=== PATIENT | male | born 1955 | race Caucasian/White ===

== ENCOUNTER → 2016-07-12 | Outpatient (CLI) | payer MEDICARE, MEDICAID ==
[~2016-07-12] MED LIST: ALBU17IN INH; CLIN1CAP5 PO; CLON0.2T PO; FLUTISP; FOLI1TAB2 PO; OCEA0.654; PRED10TA PO; PRED20TA PO; Thiamine Hcl PO; VITMTA PO
[2016-07-12 11:16] LABS: MEAN CORPUSCULAR HEMOGLOBIN 33.6 pg (27.0-33.0); MEAN CORPUSCULAR HGB CONC 33.2 g/dl (32.0-36.5); MEAN CORPUSCULAR VOLUME 101.4 fl (80.0-96.0); RED CELL DISTRIBUTION WIDTH 12.1 % (11.5-14.5)
[2016-07-12 11:59] LABS: ALBUMIN 3.8 GM/DL (3.2-5.2); ALBUMIN/GLOBULIN RATIO 1.27 (1.00-1.93); ALKALINE PHOSPHATASE 77 U/L (45-117); ALT/SGPT 34 U/L (12-78); ANION GAP 7 MEQ/L (8-16); AST/SGOT 25 U/L (15-37); BILIRUBIN,TOTAL 0.4 MG/DL (0.2-1.0); BLOOD UREA NITROGEN 7 MG/DL (7-18); CALCIUM LEVEL 9.3 MG/DL (8.5-10.1); CARBON DIOXIDE LEVEL 28 MEQ/L (21-32); CHLORIDE LEVEL 104 MEQ/L (98-107); CHOLESTEROL LEVEL 152 MG/DL (<200); CREATININE FOR GFR 0.73 MG/DL (0.70-1.30); GLOMERULAR FILTRATION RATE > 60.0 (>56); GLUCOSE, FASTING 84 MG/DL (70-105); POTASSIUM SERUM 4.3 MEQ/L (3.5-5.1); SODIUM LEVEL 139 MEQ/L (136-145); TOTAL PROTEIN 6.8 GM/DL (6.4-8.2); TRIGLYCERIDES LEVEL 95 MG/DL (<150)
--- NOTE | 2016-07-13 03:20 | REP ---
Clinical: Scoliosis. Pain. Technique: AP, lateral, swimmers views of the thoracic spine. Findings: Advanced, stable S-shaped scoliosis through the thoracolumbar spine is again identified and unchanged when compared to prior chest x-rays. Vertebral bodies appear relatively normal and without obvious acute fracture / compression injury. Impression: Advanced scoliosis. No obvious acute thoracic vertebral body findings. Signed by Amor Palumbo MD 07/13/2016 03:12 A
== END ==
LOC: M LAB 10:48
PROVIDERS: ATTEND Nurse Practitioner Family
DX: M41.9 Scoliosis, unspecified (principal); J44.9 Chronic obstructive pulmonary disease, unspecified; F10.21 Alcohol dependence, in remission; F13.220 Sedative, hypnotic or anxiolytic dependence with intoxication, uncomplicated

== ENCOUNTER 2016-12-08 09:46 | Emergency (ER) | payer MEDICARE, MEDICAID ==
[~2016-12-08] VITALS: Ht 170.2 cm; Wt 81.5 kg
[~2016-12-08 09:46] MED LIST changes: +CLIN150C14 PO; -CLIN1CAP5 PO; -FOLI1TAB2 PO; +FOLI1TAB4 PO
[2016-12-08 09:47] VITALS: BP 185/88
[2016-12-08] MEDS ORDERED: DOXY100C37 PO (10:49)
== END 2016-12-08 11:02 | disposition home or self-care (01) ==
LOC: M ED 09:46
DX: S20.362A Insect bite (nonvenomous) of left front wall of thorax, initial encounter (principal); W57.XXXA Bitten or stung by nonvenomous insect and other nonvenomous arthropods, initial encounter; Y92.9 Unspecified place or not applicable; Y93.9 Activity, unspecified; Y99.8 Other external cause status; I10 Essential (primary) hypertension; Z79.899 Other long term (current) drug therapy

== ENCOUNTER → 2017-01-01 | Outpatient (REF) | payer MEDICARE, MEDICAID ==
[~2017-01-01] MED LIST changes: +ARNU1INH; +DOXY100C37 PO; +LISI-538; +TIOT18INH INH
== END ==
LOC: M LAB REF 11:37
PROVIDERS: ATTEND Otolaryngology
DX: L03.211 Cellulitis of face (principal); R22.9 Localized swelling, mass and lump, unspecified

== ENCOUNTER → 2017-03-26 | Outpatient (REF) | payer MEDICARE, MEDICAID | LOC: M LAB REF 17:21 | PROVIDERS: ATTEND Otolaryngology | DX: L72.3 Sebaceous cyst (principal) ==

== ENCOUNTER 2017-04-01 10:40 | Emergency (ER) | payer MEDICARE, MEDICAID ==
[~2017-04-01] VITALS: Ht 170.2 cm; Wt 85.0 kg
[~2017-04-01 10:40] MED LIST changes: -ARNU1INH; -LISI-538; -TIOT18INH INH
[2017-04-01] MEDS ORDERED: LISI-538 (10:48)
[2017-04-01] MEDS ORDERED: TIOT18INH INH (10:48)
[2017-04-01] MEDS ORDERED: ARNU1INH (10:48)
[2017-04-01 12:30] VITALS: BP 178/94
[2017-04-01] MEDS ORDERED: DOXYCYCLINE HYCLATE 100 MG TAB PO ONE (12:30)
== END 2017-04-01 12:30 | disposition home or self-care (01) ==
LOC: M ED 10:40
DX: S20.96XA Insect bite (nonvenomous) of unspecified parts of thorax, initial encounter (principal); W57.XXXA Bitten or stung by nonvenomous insect and other nonvenomous arthropods, initial encounter; Y92.9 Unspecified place or not applicable; Y93.9 Activity, unspecified; Y99.9 Unspecified external cause status; I10 Essential (primary) hypertension; M41.9 Scoliosis, unspecified; J45.909 Unspecified asthma, uncomplicated; F17.200 Nicotine dependence, unspecified, uncomplicated; Z79.899 Other long term (current) drug therapy

== ENCOUNTER → 2017-04-04 | Outpatient (REF) | payer MEDICARE, MEDICAID ==
[~2017-04-04] MED LIST changes: +ARNU1INH; +LISI-538; +TIOT18INH INH
[2017-04-07 00:12] LABS: Lyme Disease IgG/IgM Antibodie <0.91 ISR (0.00-0.90); Lyme Disease IgM Ab Quantitati <0.80 index (0.00-0.79)
== END ==
LOC: M LAB REF 16:30
PROVIDERS: ATTEND Nurse Practitioner Adult Health
DX: A69.20 Lyme disease, unspecified (principal)

== ENCOUNTER → 2017-11-02 | Outpatient (CLI) | payer MEDICARE, MEDICAID | LOC: M RAD 11:13 | DX: M25.511 Pain in right shoulder (principal) | CPT/HCPCS: 73030 ==

== ENCOUNTER 2017-12-19 10:00 | Outpatient (RCR) | payer MEDICARE, MEDICAID | END 2018-01-08 | LOC: M PT 10:00 | DX: Z47.89 Encounter for other orthopedic aftercare (principal); M75.41 Impingement syndrome of right shoulder; M19.011 Primary osteoarthritis, right shoulder; M75.31 Calcific tendinitis of right shoulder | CPT/HCPCS: 97110 ==

== ENCOUNTER → 2018-08-12 | Outpatient (REF) | payer MEDICARE, MEDICAID ==
[~2018-08-12] MED LIST changes: +AMLO10TA5 PO; +FOLI1TAB11 PO; -FOLI1TAB4 PO; +LISI40TA PO; +PROAAER10 INH
== END ==
LOC: M SFHCPLAZ 19:04
PROVIDERS: ATTEND Dermatology
DX: D23.39 Other benign neoplasm of skin of other parts of face (principal); L57.0 Actinic keratosis; L57.8 Other skin changes due to chronic exposure to nonionizing radiation; L66.3 Perifolliculitis capitis abscedens
CPT/HCPCS: 11102; 11103; 88305; G0463

== ENCOUNTER → 2018-09-12 | Outpatient (REF) | payer MEDICARE, MEDICAID ==
[~2018-09-12] MED LIST changes: +FLUT50SP12; -FLUTISP; +PRED-351 PO; -PRED10TA PO
[2018-09-12 12:57] LABS: BLOOD UREA NITROGEN 7 MG/DL (7-18); CREATININE FOR GFR 0.71 MG/DL (0.70-1.30); GLOMERULAR FILTRATION RATE > 60.0 (>49)
== END ==
LOC: M LABDRAW1 12:16
PROVIDERS: ATTEND Physician Assistant Surgical
DX: Z01.812 Encounter for preprocedural laboratory examination (principal)

== ENCOUNTER → 2018-09-17 | Outpatient (REF) | payer MEDICARE | LOC: M SFHCPLAZ 18:01 | PROVIDERS: ATTEND Dermatology | DX: L72.0 Epidermal cyst (principal) ==

== ENCOUNTER → 2018-10-01 | Outpatient (REF) | payer MEDICARE, MEDICAID | LOC: M SFHCPLAZ 09:45 | PROVIDERS: ATTEND Dermatology | DX: L72.0 Epidermal cyst (principal) ==

== ENCOUNTER 2018-11-29 12:14 | Outpatient (RCR) | payer MEDICARE, MEDICAID | END 2018-12-08 | LOC: M PT 12:14 | PROVIDERS: ATTEND Nurse Practitioner Adult Health | DX: G57.12 Meralgia paresthetica, left lower limb (principal) ==

== ENCOUNTER → 2019-01-23 | Outpatient (CLI) | payer MEDICARE, MEDICAID ==
--- NOTE | 2019-01-23 11:56 | REP ---
LUMBAR SPINE SERIES: Five views. HISTORY: Low back pain. FINDINGS: Five views of the lumbar spine show a moderate levoconvex rotoscoliotic curve in the lumbar spine. Lumbar vertebral body heights are preserved alignment is otherwise normal. There is no evidence of spondylolysis or spondylolisthesis. No bony destructive lesion is seen. There is degenerative disc disease diffusely in the lumbar spine segments. Sacrum and SI joints are intact. Vascular calcification is noted. There are inguinal herniorrhaphy coils visible bilaterally. Granulomatous calcifications are seen in the lung bases. IMPRESSION: Moderate lumbar scoliosis. Degenerative disc disease diffusely. No bony destructive lesion or other acute abnormality. Electronically Signed by Odilon Ferrell MD 01/23/2019 05:30 P
== END ==
LOC: M RAD 09:07
PROVIDERS: ATTEND Nurse Practitioner Adult Health
DX: M54.5 Low back pain (principal)

== ENCOUNTER → 2019-02-24 | Outpatient (CLI) | payer MEDICARE, MEDICAID ==
--- NOTE | 2019-02-25 07:44 | REP ---
Clinical: History of varicose veins. Technique: Real time santos scale and color Doppler evaluation of the bilateral lower extremities using linear high frequency transducer with reflux evaluation. Findings: Bilateral deep venous structures from the common femoral vein to the popliteal vein demonstrates normal compressibility, flow, and wave patterns and response respiration and augmentation without evidence for deep venous thrombosis. Right lower extremity demonstrates reflux through the deep venous system including common femoral vein, superficial femoral vein, and popliteal vein. Reflux through the superficial venous system is also appreciated. Specifically, proximal greater saphenous vein measures 6.2 mm diameter with reflux duration 3.9 seconds, and the mid greater saphenous vein measures 4.3 mm diameter with reflux duration 4.1 seconds as well as reflux through the lesser saphenous vein measuring 4.5 mm diameter with reflux duration 2.8 seconds. Incidental collateral veins identified extending from the mid to distal greater saphenous vein. Left lower extremity demonstrates reflux through the deep venous system including common femoral vein, superficial femoral vein, and popliteal vein. Reflux through the proximal greater saphenous vein measuring 12.4 mm diameter with reflux duration 4.3 seconds, and of the lesser saphenous vein measuring 4.4 mm diameter with reflux duration 2.9 seconds. Note is made of a collateral vessel from the proximal greater saphenous vein to the mid calf where multiple varicosities with reflux are noted. Impression: 1. No evidence for deep venous thrombosis. 2. Moderate bilateral reflux as noted above. Electronically Signed by Amor Palumbo MD 02/25/2019 07:35 A
== END ==
LOC: M RAD 11:06
PROVIDERS: ATTEND Surgery Vascular Surgery
DX: I83.893 Varicose veins of bilateral lower extremities with other complications (principal)

== ENCOUNTER → 2019-04-29 | Outpatient (REF) | payer MEDICARE, MEDICAID | LOC: M SFHCPLAZ 18:29 | PROVIDERS: ATTEND Dermatology | DX: L72.0 Epidermal cyst (principal) ==

== ENCOUNTER → 2019-07-08 | Outpatient (REF) | payer MEDICARE, MEDICAID | LOC: M LAB REF 10:27 | PROVIDERS: ATTEND Dermatology | DX: L72.0 Epidermal cyst (principal) ==

== ENCOUNTER → 2019-12-10 | Outpatient (REF) | payer MEDICARE, MEDICAID ==
[2019-12-10 14:13] LABS: BASO # 0.1 10^3/uL (0.0-0.2); EOS # 0.2 10^3/uL (0.0-0.5); EOS % 1.8 % (0.0-3.0); HEMATOCRIT 49.5 % (42.0-52.0); HEMOGLOBIN 16.3 g/dl (13.5-17.5); LYMPH # 2.2 10^3/uL (1.5-5.0); LYMPH % 24.1 % (24.0-44.0); MEAN CORPUSCULAR HEMOGLOBIN 33.3 pg (27.0-33.0); MEAN CORPUSCULAR HGB CONC 32.9 g/dl (32.0-36.5); MEAN CORPUSCULAR VOLUME 101.2 fl (80.0-96.0); MONO % 10.6 % (0.0-5.0); NEUTROPHILS # 5.7 10^3/uL (1.5-8.5); NEUTROPHILS % 61.7 % (36.0-66.0); PLATELET COUNT, AUTOMATED 288 10^3/uL (150-450); RED BLOOD COUNT 4.89 10^6/uL (4.30-6.10); WHITE BLOOD COUNT 9.1 10^3/uL (4.0-10.0)
[2019-12-10 14:33] LABS: ALBUMIN 3.8 GM/DL (3.2-5.2); ALT/SGPT 47 U/L (12-78); BILIRUBIN,TOTAL 0.3 MG/DL (0.2-1.0); BLOOD UREA NITROGEN 7 MG/DL (7-18); CALCIUM LEVEL 9.3 MG/DL (8.8-10.2); CARBON DIOXIDE LEVEL 26 MEQ/L (21-32); CHLORIDE LEVEL 99 MEQ/L (98-107); CHOLESTEROL LEVEL 188 MG/DL (<200); CHOLESTEROL RISK RATIO 3.916 (<5); CREATININE FOR GFR 0.79 MG/DL (0.70-1.30); FREE T4 1.14 NG/DL (0.76-1.46); GLOMERULAR FILTRATION RATE > 60.0 (>49); GLUCOSE, FASTING 100 MG/DL (70-100); HDL CHOLESTEROL 48 MG/DL (>40); LDL CHOLESTEROL 113 MG/DL (<100); NON-HDL-C 140 MG/DL; POTASSIUM SERUM 4.4 MEQ/L (3.5-5.1); SODIUM LEVEL 132 MEQ/L (136-145); THYROID STIMULATING HORMONE 0.817 uIU/ML (0.358-3.740); TOTAL 25(OH) VITAMIN D 18.3 NG/ML (30.0-100.0); TOTAL PROTEIN 7.7 GM/DL (6.4-8.2); TRIGLYCERIDES LEVEL 137 MG/DL (<150)
[2019-12-10 14:49] LABS: HEMOGLOBIN A1c 5.6 %
== END ==
LOC: M LAB REF 12:20
PROVIDERS: ATTEND Nurse Practitioner Family
DX: F10.20 Alcohol dependence, uncomplicated (principal); J44.9 Chronic obstructive pulmonary disease, unspecified; Z72.0 Tobacco use; I10 Essential (primary) hypertension

== ENCOUNTER → 2019-12-25 | Outpatient (REF) | payer MEDICARE, MEDICAID ==
[~2019-12-25] MED LIST changes: -AMLO10TA5 PO; +AMLO1TAB25 PO
[2019-12-27 23:10] LABS: TESTOSTERONE FREE (DIRECT) 14.8 pg/mL (6.6-18.1)
== END ==
LOC: M LAB REF 17:01
PROVIDERS: ATTEND Nurse Practitioner Family
DX: Z13.9 Encounter for screening, unspecified (principal); N52.9 Male erectile dysfunction, unspecified
CPT/HCPCS: 84402; 84403; G0103

== ENCOUNTER → 2020-01-08 | Outpatient (REF) | payer MEDICARE, MEDICAID ==
[2020-02-27 06:52] LABS: TESTOSTERONE FREE (DIRECT) See Separate Report PG/ML; TESTOSTERONE TOTAL FOR T&D See Separate Report NG/DL
== END ==
LOC: M LAB REF 19:05
PROVIDERS: ATTEND Nurse Practitioner Family
DX: N52.9 Male erectile dysfunction, unspecified (principal)

== ENCOUNTER → 2020-02-19 | Outpatient (REF) | payer MEDICARE, MEDICAID ==
[2020-02-21 16:07] LABS: TESTOSTERONE FREE (DIRECT) 8.8 pg/mL (6.6-18.1)
== END ==
LOC: M LAB REF 17:31
PROVIDERS: ATTEND Nurse Practitioner Family
DX: N52.9 Male erectile dysfunction, unspecified (principal)

== ENCOUNTER → 2020-03-05 | Outpatient (REF) | payer MEDICARE, MEDICAID ==
[2020-03-08 23:14] LABS: TESTOSTERONE FREE (DIRECT) 7.2 pg/mL (6.6-18.1)
== END ==
LOC: M LAB REF 11:48
PROVIDERS: ATTEND Nurse Practitioner Family
DX: N52.9 Male erectile dysfunction, unspecified (principal)

== ENCOUNTER → 2020-04-07 | Outpatient (REF) | payer MEDICARE, MEDICAID ==
[2020-04-07 17:58] LABS: BACTERIA, URINE AUTO NEGATIVE (NEGATIVE); RBC, URINE AUTO 0 /HPF (0-3); SQUAMOUS EPITHELIAL CELL UR AU 0 /HPF (0-6); WBC, URINE AUTO 0 /HPF (0-3)
== END ==
LOC: M SMT 17:23
PROVIDERS: ATTEND Specialist
DX: N40.2 Nodular prostate without lower urinary tract symptoms (principal)
CPT/HCPCS: 51798; 81015; 87086; G0463

== ENCOUNTER → 2020-07-27 | Outpatient (CLI) | payer MEDICARE ==
[~2020-07-27] MED LIST changes: -CLIN150C14 PO; +CLIN150C15 PO; +FLEEENE12 PR; -LISI-538; +LISI20TA33; -LISI40TA PO; +LISI40TA4 PO; +MELO15TA28; +META0.52 PO; +MIRA3350 PO; +PEG31POW PO; +SENN-80 PO; +SENN-83 PO; +SILD50TA2 PO; +VITA50005 PO
--- NOTE | 2020-07-27 13:28 | REPPI ---
INDICATION: ELEVATED PSA. COMPARISON: None. TECHNIQUE: Transrectal prostate sonography. FINDINGS: Trans rectal prostate sonography demonstrates unremarkable seminal vesicles. Prostate gland is heterogeneous, with calcifications and cystic changes noted. Glandular dimensions are measured at 5.1 x 3.8 x 5.7 cm with a calculated glandular volume of 57.6 ml. There is a 0.9 cm hypoechoic nodule in the right posterior gland. Transrectal sonographic guidance is provided to Dr. Cornejo who performed trans rectal ultrasound guided needle biopsy procedure. IMPRESSION: Transrectal prostate sonographic findings as above. <Electronically signed by Yared Ferrell > 07/27/20 [id number]
== END ==
LOC: M SMT PRO 09:02
PROVIDERS: ATTEND Urology
DX: C61 Malignant neoplasm of prostate (principal)
CPT/HCPCS: 76872; 76942; G0416

== ENCOUNTER → 2020-08-03 | Outpatient (REF) | payer MEDICARE, OTHER, MEDICAID ==
[~2020-08-03] MED LIST changes: -FLEEENE12 PR; -MELO15TA28; -META0.52 PO; -MIRA3350 PO; -PEG31POW PO; -SENN-80 PO; -SENN-83 PO; -SILD50TA2 PO; -VITA50005 PO
== END ==
LOC: M LAB REF 18:49
PROVIDERS: ATTEND Dermatology
DX: L72.0 Epidermal cyst (principal)

== ENCOUNTER → 2020-08-27 | Outpatient (CLI) | payer MEDICARE, MEDICAID | LOC: M LAB 13:18 | PROVIDERS: ATTEND Urology | DX: C61 Malignant neoplasm of prostate (principal) ==

== ENCOUNTER → 2020-09-03 | Outpatient (REF) | payer MEDICARE, MEDICAID ==
[2020-09-03 19:34] LABS: BASO # 0.1 10^3/uL (0.0-0.2); BASO % 0.6 % (0.0-1.0); EOS % 0.1 % (0.0-3.0); HEMATOCRIT 50.4 % (42.0-52.0); HEMOGLOBIN 17.8 g/dl (13.5-17.5); LYMPH # 1.6 10^3/uL (1.5-5.0); MEAN CORPUSCULAR HEMOGLOBIN 33.6 pg (27.0-33.0); MEAN CORPUSCULAR HGB CONC 35.3 g/dl (32.0-36.5); MEAN CORPUSCULAR VOLUME 95.3 fl (80.0-96.0); MONO # 1.5 10^3/uL (0.0-0.8); MONO % 8.5 % (2.0-8.0); NEUTROPHILS # 14.4 10^3/uL (1.5-8.5); PLATELET COUNT, AUTOMATED 287 10^3/uL (150-450); RED BLOOD COUNT 5.29 10^6/uL (4.30-6.10)
[2020-09-03 19:51] LABS: ALBUMIN 3.7 GM/DL (3.2-5.2); ALT/SGPT 45 U/L (12-78); BILIRUBIN,TOTAL 0.8 MG/DL (0.2-1.0); BLOOD UREA NITROGEN 6 MG/DL (7-18); CALCIUM LEVEL 9.6 MG/DL (8.8-10.2); CARBON DIOXIDE LEVEL 28 MEQ/L (21-32); CHLORIDE LEVEL 90 MEQ/L (98-107); CHOLESTEROL LEVEL 150 MG/DL (<200); CHOLESTEROL RISK RATIO 2.777 (<5); CREATININE FOR GFR 0.83 MG/DL (0.70-1.30); GLOMERULAR FILTRATION RATE > 60.0 (>49); GLUCOSE, FASTING 109 MG/DL (70-100); HDL CHOLESTEROL 54 MG/DL (>40); LDL CHOLESTEROL 77 MG/DL (<100); NON-HDL-C 96 MG/DL; POTASSIUM SERUM 4.4 MEQ/L (3.5-5.1); SODIUM LEVEL 127 MEQ/L (136-145); TOTAL PROTEIN 7.5 GM/DL (6.4-8.2); TRIGLYCERIDES LEVEL 94 MG/DL (<150)
[2020-09-03 19:57] LABS: WHITE BLOOD COUNT 17.8 10^3/uL (4.0-10.0)
[2020-09-03 19:58] LABS: TOTAL 25(OH) VITAMIN D 10.5 NG/ML (30.0-100.0)
[2020-09-06 23:09] LABS: PSA TOTAL 3.7 ng/mL (0.0-4.0)
== END ==
LOC: M LAB REF 18:54
PROVIDERS: ATTEND Nurse Practitioner Family
DX: I10 Essential (primary) hypertension (principal); F17.200 Nicotine dependence, unspecified, uncomplicated; E55.9 Vitamin D deficiency, unspecified; R97.20 Elevated prostate specific antigen [PSA]

== ENCOUNTER → 2020-09-06 | Outpatient (REF) | payer MEDICARE, MEDICAID ==
[2020-09-06 18:51] LABS: BASO # 0.2 10^3/uL (0.0-0.2); BASO % 1.1 % (0.0-1.0); EOS # 0.2 10^3/uL (0.0-0.5); EOS % 1.1 % (0.0-3.0); HEMATOCRIT 48.6 % (42.0-52.0); HEMOGLOBIN 16.4 g/dl (13.5-17.5); LYMPH # 1.8 10^3/uL (1.5-5.0); LYMPH % 12.8 % (24.0-44.0); MEAN CORPUSCULAR HEMOGLOBIN 33.5 pg (27.0-33.0); MEAN CORPUSCULAR HGB CONC 33.7 g/dl (32.0-36.5); MEAN CORPUSCULAR VOLUME 99.2 fl (80.0-96.0); MONO # 1.5 10^3/uL (0.0-0.8); NEUTROPHILS % 72.5 % (36.0-66.0); PLATELET COUNT, AUTOMATED 274 10^3/uL (150-450)
[2020-09-06 19:16] LABS: ALBUMIN 3.5 GM/DL (3.2-5.2); ALT/SGPT 49 U/L (12-78); BILIRUBIN,TOTAL 0.5 MG/DL (0.2-1.0); BLOOD UREA NITROGEN 10 MG/DL (7-18); CALCIUM LEVEL 9.4 MG/DL (8.8-10.2); CARBON DIOXIDE LEVEL 28 MEQ/L (21-32); CHLORIDE LEVEL 94 MEQ/L (98-107); CREATININE FOR GFR 0.87 MG/DL (0.70-1.30); FERRITIN 470 NG/ML (26-388); GLOMERULAR FILTRATION RATE > 60.0 (>49); GLUCOSE, FASTING 86 MG/DL (70-100); IRON (FE) 81 UG/DL (65-175); MAGNESIUM LEVEL 2.3 MG/DL (1.8-2.4); PERCENT SATURATION 29.9 % (19.7-50.0); POTASSIUM SERUM 4.5 MEQ/L (3.5-5.1); SODIUM LEVEL 130 MEQ/L (136-145); TOTAL IRON BINDING CAPACITY 271 UG/DL (250-450); TOTAL PROTEIN 7.1 GM/DL (6.4-8.2)
[2020-09-06 19:24] LABS: FOLATE 15.2 NG/ML; VITAMIN B12 LEVEL 317 PG/ML
[2020-09-06 19:38] LABS: MONO % 11.1 % (2.0-8.0); WHITE BLOOD COUNT 13.7 10^3/uL (4.0-10.0)
== END ==
LOC: M LAB REF 16:36
PROVIDERS: ATTEND Nurse Practitioner Family
DX: E87.1 Hypo-osmolality and hyponatremia (principal); D72.829 Elevated white blood cell count, unspecified; D50.9 Iron deficiency anemia, unspecified

== ENCOUNTER → 2020-09-08 | Outpatient (REF) | payer MEDICARE, MEDICAID ==
[2020-09-08 13:21] LABS: APPEARANCE, URINE CLEAR (CLEAR); BACTERIA, URINE AUTO NEGATIVE (NEGATIVE); BILIRUBIN, URINE AUTO NEGATIVE (NEGATIVE); BLOOD, URINE BLOOD NEGATIVE (NEGATIVE); COLOR, URINE AMBER (YELLOW); GLUCOSE, URINE (UA) AUTO NEGATIVE (NEGATIVE); KETONE, URINE AUTO TRACE mg/dL (NEGATIVE); LEUKOCYTE ESTERASE, URINE AUTO NEGATIVE (NEGATIVE); NITRITE, URINE AUTO NEGATIVE (NEGATIVE); PROTEIN, URINE AUTO 1+ mg/dL (NEGATIVE); RBC, URINE AUTO 0 /HPF (0-3); SPECIFIC GRAVITY URINE AUTO 1.017 (1.002-1.035); SQUAMOUS EPITHELIAL CELL UR AU 0 /HPF (0-6); WBC, URINE AUTO 1 /HPF (0-3)
[2020-09-08 14:05] LABS: SODIUM,RANDOM URINE 28 MEQ/L
[2020-09-08 15:02] LABS: OSMOLALITY URINE 452 MOSM/KG (50-1400)
== END ==
LOC: M LAB REF 12:10
PROVIDERS: ATTEND Nurse Practitioner Family
DX: E87.1 Hypo-osmolality and hyponatremia (principal); D72.829 Elevated white blood cell count, unspecified

== ENCOUNTER 2020-09-12 00:11 | Emergency (ER) | payer MEDICARE, MEDICAID ==
[~2020-09-12] VITALS: Ht 170.2 cm; Wt 92.7 kg
[2020-09-12] MEDS ORDERED: MELO15TA28 (00:26)
[2020-09-12] MEDS ORDERED: SILD50TA2 (00:26)
[2020-09-12 01:09] LABS: BASO # 0.1 10^3/uL (0.0-0.2); BASO % 0.8 % (0.0-1.0); EOS # 0.2 10^3/uL (0.0-0.5); EOS % 1.1 % (0.0-3.0); HEMATOCRIT 48.5 % (42.0-52.0); HEMOGLOBIN 16.6 g/dl (13.5-17.5); LYMPH # 1.9 10^3/uL (1.5-5.0); LYMPH % 13.2 % (24.0-44.0); MEAN CORPUSCULAR HEMOGLOBIN 33.7 pg (27.0-33.0); MEAN CORPUSCULAR HGB CONC 34.2 g/dl (32.0-36.5); MEAN CORPUSCULAR VOLUME 98.4 fl (80.0-96.0); MONO # 1.1 10^3/uL (0.0-0.8); MONO % 7.9 % (2.0-8.0); NEUTROPHILS # 10.8 10^3/uL (1.5-8.5); NEUTROPHILS % 76.2 % (36.0-66.0); PLATELET COUNT, AUTOMATED 352 10^3/uL (150-450); RED BLOOD COUNT 4.93 10^6/uL (4.30-6.10); WHITE BLOOD COUNT 14.2 10^3/uL (4.0-10.0)
[2020-09-12 01:20] LABS: ALBUMIN 3.4 GM/DL (3.2-5.2); ALT/SGPT 44 U/L (12-78); BILIRUBIN,DIRECT 0.3 MG/DL (0.0-0.2); BILIRUBIN,TOTAL 0.5 MG/DL (0.2-1.0); BLOOD UREA NITROGEN 8 MG/DL (7-18); CALCIUM LEVEL 9.1 MG/DL (8.8-10.2); CARBON DIOXIDE LEVEL 28 MEQ/L (21-32); CHLORIDE LEVEL 95 MEQ/L (98-107); CREATININE FOR GFR 0.83 MG/DL (0.70-1.30); GLOMERULAR FILTRATION RATE > 60.0 (>49); GLUCOSE, FASTING 146 MG/DL (70-100); LIPASE 241 U/L (73-393); POTASSIUM SERUM 3.9 MEQ/L (3.5-5.1); SODIUM LEVEL 130 MEQ/L (136-145); TOTAL PROTEIN 7.2 GM/DL (6.4-8.2)
--- NOTE | 2020-09-12 01:21 | REPVR ---
PROCEDURE INFORMATION: Exam: XR Abdomen Exam date and time: 09/12/2020 12:59 AM Age: 65 years old Clinical indication: Other: Flat and upright TECHNIQUE: Imaging protocol: XR of the abdomen. Views: 2 Views. Upright and supine views. COMPARISON: CT ABD/PEL W/IV CONTRAST ONLY 01/05/2020 10:30 AM FINDINGS: Gastrointestinal tract: Mild gas in the GI tract without abnormal dilatation. There are a few small bowel air-fluid levels suggested in nondilated small bowel. Intraperitoneal space: No free air. Bones/joints: Levorotoscoliosis of the thoracolumbar spine with degenerative disc changes. IMPRESSION: 1. Levorotoscoliosis of the thoracolumbar spine degenerative change. 2. There are some air-fluid levels in nondilated small bowel which is nonspecific and may reflect minimal ileus or possibly enteritis. 3. Otherwise negative abdomen with mild gas overall. Electronically signed by: Yoshi Thompson On 09/12/2020 01:21:37 AM
[2020-09-12] MEDS ORDERED: KETOROLAC 30 MG/ML 1ML VIAL IV ONE (01:35)
[2020-09-12] MEDS ORDERED: METOCLOPRAMIDE INJ 10MG/2ML VIAL (J2765 PER 1) IV ONE (01:40)
[2020-09-12] MEDS: GASTROGRAFIN SOLUTION 30ML PO SCH ×2 (02:34→02:48)
[2020-09-12] MEDS ORDERED: ISOVUE-370 76% 100ML VIAL As Ordered ONE (03:32)
--- NOTE | 2020-09-12 04:52 | REPVR ---
PROCEDURE INFORMATION: Exam: CT Abdomen And Pelvis With Contrast Exam date and time: 09/12/2020 4:18 AM Age: 65 years old Clinical indication: Condition or disease; Intestinal condition; Other: Ileus; Additional info: Ileus with distended hernia TECHNIQUE: Imaging protocol: Computed tomography of the abdomen and pelvis with contrast. Radiation optimization: All CT scans at this facility use at least one of these dose optimization techniques: automated exposure control; mA and/or kV adjustment per patient size (includes targeted exams where dose is matched to clinical indication); or iterative reconstruction. Contrast material: ISOVUE 370; Contrast volume: 100 ml; Contrast route: INTRAVENOUS (IV); Other contrast: Oral, gastrographin, 600ml; COMPARISON: CT ABD/PEL W/IV CONTRAST ONLY 01/05/2020 10:30 AM FINDINGS: Lungs: Slight bibasilar interstitial prominence and minimal fibro-atelectatic change in the right middle lobe and lingular tip. There are calcified granulomata in the lung bases. Liver: The liver attenuation is 42 Hounsfield units and the spleen is 114 Hounsfield units. Gallbladder and bile ducts: Normal. No calcified stones. No ductal dilation. Pancreas: Normal. No ductal dilation. Spleen: Normal. No splenomegaly. Adrenal glands: Right adrenal nodule measuring 3.1 x 2.6 x 3.8 cm which is redemonstrated since the prior study and demonstrates a Hounsfield measurement of 41. There is a smaller left adrenal nodule measuring 2.1 x 1.5 x 1.6 cm which is also unchanged. No follow-up is necessary. Kidneys and ureters: Moderate left renal atrophy which is increased since the prior study. There is prominent plaque in the proximal left renal artery and this atrophic change may be of renovascular origin. There is a right renal cyst measuring 13 mm which is redemonstrated and unchanged from the prior study. Stomach and bowel: No bowel distention. No abnormal air-fluid levels. Appendix: Surgical clips about the cecal tip suggesting prior appendectomy. The appendix is not seen. Intraperitoneal space: Unremarkable. No free air. No significant fluid collection. Vasculature: There is mild calcification of the abdominal aorta with extension into the iliac arteries. Lymph nodes: Unremarkable. No enlarged lymph nodes. Urinary bladder: Unremarkable as visualized. Reproductive: Unremarkable as visualized. Bones/joints: Levorotoscoliosis through the thoracolumbar spine. Soft tissues: Unremarkable. IMPRESSION: 1. Fatty infiltration of the liver. 2. Bilateral adrenal nodules which remain unchanged from the prior study. No follow-up is necessary. 3. Moderate left renal atrophy which is increased since the prior study. In view of prominent left renal artery atherosclerotic plaque, this is likely of renovascular origin. 4. Otherwise negative CT abdomen/pelvis. No small bowel distention or air-fluid levels. Electronically signed by: Yoshi Thompson On 09/12/2020 04:52:52 AM
[2020-09-12] MEDS ORDERED: MIRA3350 PO (05:10)
[2020-09-12] MEDS ORDERED: SENN-80 PO (05:10)
[2020-09-12] MEDS ORDERED: META0.52 PO (05:10)
[2020-09-12] MEDS ORDERED: FLEEENE12 PR (05:11)
[2020-09-12] MEDS ORDERED: METOCLOPRAMIDE 10 MG TAB PO ONE (05:40)
[2020-09-12] MEDS ORDERED: SENNA 8.6 MG TAB (SENOKOT) PO ONE ×2 (05:55→09:00)
[2020-09-12 06:32] VITALS: BP 131/68
== END 2020-09-12 07:01 | disposition home or self-care (01) ==
LOC: M ED 00:11
DX: K59.00 Constipation, unspecified (principal); K56.7 Ileus, unspecified; M51.34 Other intervertebral disc degeneration, thoracic region; K76.0 Fatty (change of) liver, not elsewhere classified; E27.9 Disorder of adrenal gland, unspecified; N26.1 Atrophy of kidney (terminal); I10 Essential (primary) hypertension; E78.5 Hyperlipidemia, unspecified; Z79.899 Other long term (current) drug therapy
CPT/HCPCS: 74019; 74177; 80048; 80076; 81001; 83605; 83690; 85025; 93041; 96374; 96375; 99285; J1885; J2765; Q9963; Q9967

== ENCOUNTER 2020-09-14 19:23 | Emergency (ER) | payer MEDICARE, MEDICAID ==
[~2020-09-14] VITALS: Ht 170.2 cm; Wt 92.3 kg
[~2020-09-14 19:23] MED LIST changes: +FLEEENE12 PR; +MELO15TA28; +META0.52 PO; +MIRA3350 PO; +SENN-80 PO; +SILD50TA2 PO
[2020-09-14] MEDS ORDERED: KETOROLAC 30 MG/ML 1ML VIAL IV ONE (20:00)
[2020-09-14] MEDS ORDERED: ISOVUE-370 76% 100ML VIAL As Ordered ONE (20:15)
[2020-09-14 20:23] LABS: BASO # 0.1 10^3/uL (0.0-0.2); BASO % 0.6 % (0.0-1.0); EOS # 0.1 10^3/uL (0.0-0.5); EOS % 0.7 % (0.0-3.0); HEMATOCRIT 43.9 % (42.0-52.0); HEMOGLOBIN 14.9 g/dl (13.5-17.5); LYMPH # 1.5 10^3/uL (1.5-5.0); LYMPH % 9.8 % (24.0-44.0); MEAN CORPUSCULAR HEMOGLOBIN 33.9 pg (27.0-33.0); MEAN CORPUSCULAR HGB CONC 33.9 g/dl (32.0-36.5); MONO # 1.1 10^3/uL (0.0-0.8); MONO % 7.5 % (2.0-8.0); NEUTROPHILS # 12.1 10^3/uL (1.5-8.5); NEUTROPHILS % 80.5 % (36.0-66.0); PLATELET COUNT, AUTOMATED 296 10^3/uL (150-450); RED BLOOD COUNT 4.39 10^6/uL (4.30-6.10)
[2020-09-14 20:30] LABS: ALBUMIN 3.3 GM/DL (3.2-5.2); ALT/SGPT 37 U/L (12-78); BILIRUBIN,DIRECT < 0.1 MG/DL (0.0-0.2); BILIRUBIN,TOTAL 0.3 MG/DL (0.2-1.0); CK-MB VALUE MASS 1.5 NG/ML (<3.6); CPK CREATINE PHOSPHOKINASE 97 U/L (39-308); ETHYL ALCOHOL (ETHANOL) < 0.003 % (0.000-0.010); LIPASE 272 U/L (73-393); MB/CK RELATIVE INDEX 1.55 (< OR =4); TOTAL PROTEIN 6.8 GM/DL (6.4-8.2); TROPONIN I < 0.02 NG/ML (< 0.10)
--- NOTE | 2020-09-14 21:59 | REPVR ---
PROCEDURE INFORMATION: Exam: CTA Abdomen and Pelvis With Contrast Exam date and time: 09/14/2020 9:06 PM Age: 65 years old Clinical indication: Abdominal pain; Epigastric; Additional info: Worsening epigastric pain, rad to back TECHNIQUE: Imaging protocol: Computed tomographic angiography of the abdomen and pelvis with contrast material. 3D rendering (Not supervised by radiologist): MIP and/or 3D reconstructed images were created by the technologist. Radiation optimization: All CT scans at this facility use at least one of these dose optimization techniques: automated exposure control; mA and/or kV adjustment per patient size (includes targeted exams where dose is matched to clinical indication); or iterative reconstruction. Contrast material: ISOVUE 370; Contrast volume: 100 ml; Contrast route: INTRAVENOUS (IV); COMPARISON: CT ABD/PEL W/IV ORAL CONTRAS 09/12/2020 3:38 AM FINDINGS: Aorta: No aortic aneurysm. No aortic dissection. Celiac trunk and mesenteric arteries: Mild stenosis of the celiac artery origin. Distal celiac artery and peripheral branches are patent. SMA and SAIRA are patent without stenosis. Renal arteries: Severe stenosis due to atherosclerotic disease in the distal left renal artery. Nonocclusive calcified plaque at the origin of the right renal artery. Right iliac arteries: Advanced nonocclusive atherosclerotic disease in the right common, internal, and external iliac arteries. Left iliac arteries: Advanced atherosclerotic disease in the left common, internal, and external iliac arteries. Liver: There is an ill-defined 1.7 cm area of enhancement in the right lobe of the liver, possibly hemangioma, which appears similar to the prior exam. There is hepatomegaly and hepatic steatosis. Gallbladder and bile ducts: Unremarkable. No calcified stones. No ductal dilation. Pancreas: There is mild soft tissue edema adjacent to the pancreatic head in the pancreaticoduodenal fissure. Remainder of the pancreas is unremarkable. No pancreatic mass or duct dilation. No peripancreatic fluid. Spleen: Unremarkable. No splenomegaly. Adrenal glands: 3.5 cm solid mass in the right adrenal gland is unchanged. 2.6 cm solid mass in the left adrenal gland is unchanged. Kidneys and ureters: The right kidney is atrophic with renal cortical thinning and decreased parenchymal enhancement. A 1.5 cm nodule with internal density of 70 Hounsfield units in the upper pole of the right kidney is unchanged. No hydronephrosis. No hydronephrosis. Stomach and bowel: No obstruction. No mucosal thickening. Incidental small duodenal diverticulum. Appendix: There has been prior appendectomy. Intraperitoneal space: Unremarkable. No free air. No significant fluid collection. Lymph nodes: Unremarkable. No enlarged lymph nodes. Urinary bladder: Mild urinary bladder wall thickening. No bladder calculi. Reproductive: Unremarkable as visualized. Bones/joints: There are advanced degenerative changes in the spine and pelvis. Prominent lumbar dextroscoliosis. Soft tissues: Unremarkable. IMPRESSION: 1. Possible mild pancreatitis with mild soft tissue edema adjacent to the pancreatic head. No pancreatic duct dilation, fluid collection, or mass. 2. Mild celiac artery origin stenosis, likely due to extrinsic compression by the diaphragm. No celiac or mesenteric artery occlusion or dissection. 3. Severe stenosis of the left renal artery with atrophy. 4. Nonocclusive aortoiliac atherosclerotic disease. No aneurysm or dissection. 5. Hepatic steatosis and hepatomegaly. 6. Stable appearance of bilateral adrenal masses. Stable small exophytic right renal mass. 7. Mild urinary bladder wall thickening may be due to decompression versus cystitis. Electronically signed by: Huey Troy On 09/14/2020 22:00:28 PM
[2020-09-14 22:29] VITALS: BP 184/92
[2020-09-14] MEDS ORDERED: VITA50005 PO (22:43)
--- NOTE | 2020-09-15 13:17 | ECGEPIP ---
[facility] - ED Test Date: 2020-09-14 Pat Name: CHARLOTTE LEMUS Department: Room: - Gender: Male Director Of Quality Improvement: TRINITY : 1955 Requested By: RAJWINDER Chris Order Number: [id number] Reading MD: Radha Linares Measurements Intervals [place] Rate: 84 P: MD: 150 QRS: -40 QRSD: 96 T: 25 QT: 370 QTc: 437 Interpretive Statements Normal sinus rhythm Left axis deviation delayed r progression increased rate 05/21/15 Electronically Signed on 09-15-2020 13:17:30 EDT by Radha Linares
--- NOTE | 2020-09-15 17:46 | ED PDOC ---
Post-Departure Follow-Up cta abd faxed to [facility] for follow up. Patrice Hager MD Sep 15, 2020 17:46
== END 2020-09-14 23:20 | disposition home or self-care (01) ==
LOC: M ED 19:23
DX: R10.9 Unspecified abdominal pain (principal); I77.4 Celiac artery compression syndrome; I70.1 Atherosclerosis of renal artery; E27.9 Disorder of adrenal gland, unspecified; I10 Essential (primary) hypertension; E78.5 Hyperlipidemia, unspecified; F10.10 Alcohol abuse, uncomplicated; F17.200 Nicotine dependence, unspecified, uncomplicated; Z79.899 Other long term (current) drug therapy
CPT/HCPCS: 74174; 80047; 80076; 82077; 82550; 82553; 83690; 84484; 85025; 93005; 93041; 96374; 99285; J1885; Q9967

== ENCOUNTER 2020-09-18 19:00 | Inpatient (IN) | payer MEDICARE, MEDICAID ==
[~2020-09-18] VITALS: Ht 170.2 cm; Wt 82.6 kg
[~2020-09-18 19:00] MED LIST changes: +VITA50005 PO
[2020-09-18] MEDS ORDERED: PANTOPRAZOLE 40MG VIAL (C9113 PER 1) IV ONE (19:25)
[2020-09-18] MEDS ORDERED: NS 1,000 ML IV ONE ×2 (19:25→19:45)
[2020-09-18 19:39] LABS: BASO # 0.2 10^3/uL (0.0-0.2); BASO % 1.1 % (0.0-1.0); EOS # 0.2 10^3/uL (0.0-0.5); EOS % 1.3 % (0.0-3.0); HEMATOCRIT 40.4 % (42.0-52.0); HEMOGLOBIN 13.2 g/dl (13.5-17.5); LYMPH # 4.3 10^3/uL (1.5-5.0); MEAN CORPUSCULAR HEMOGLOBIN 33.6 pg (27.0-33.0); MEAN CORPUSCULAR HGB CONC 32.7 g/dl (32.0-36.5); MEAN CORPUSCULAR VOLUME 102.8 fl (80.0-96.0); MONO # 1.3 10^3/uL (0.0-0.8); MONO % 7.9 % (2.0-8.0); NEUTROPHILS # 10.2 10^3/uL (1.5-8.5); NEUTROPHILS % 61.5 % (36.0-66.0); PLATELET COUNT, AUTOMATED 366 10^3/uL (150-450); RED BLOOD COUNT 3.93 10^6/uL (4.30-6.10); WHITE BLOOD COUNT 16.6 10^3/uL (4.0-10.0)
[2020-09-18] MEDS ORDERED: SENN-83 PO (19:41)
[2020-09-18] MEDS ORDERED: PEG31POW PO (19:42)
[2020-09-18] MEDS ORDERED: OCTREOTIDE ACETATE 100MCG/ML VIAL (J2354 PER 25MCG) IV ONE (19:45)
[2020-09-18 19:49] LABS: INR 1.06
[2020-09-18 19:50] LABS: PARTIAL THROMBOPLASTIN TIME 24.9 SECONDS (24.2-38.5)
[2020-09-18] MEDS ORDERED: ISOVUE-370 76% 100ML VIAL As Ordered ONE (19:56)
[2020-09-18 20:10] LABS: ALBUMIN 2.9 GM/DL (3.2-5.2); ALT/SGPT 39 U/L (12-78); BILIRUBIN,DIRECT 0.2 MG/DL (0.0-0.2); BILIRUBIN,TOTAL 0.4 MG/DL (0.2-1.0); BLOOD UREA NITROGEN 15 MG/DL (7-18); CALCIUM LEVEL 8.4 MG/DL (8.8-10.2); CARBON DIOXIDE LEVEL 22 MEQ/L (21-32); CHLORIDE LEVEL 99 MEQ/L (98-107); CK-MB VALUE MASS 1.3 NG/ML (<3.6); CPK CREATINE PHOSPHOKINASE 74 U/L (39-308); CREATININE FOR GFR 1.14 MG/DL (0.70-1.30); GLOMERULAR FILTRATION RATE > 60.0 (>49); GLUCOSE, FASTING 146 MG/DL (70-100); LIPASE 244 U/L (73-393); MB/CK RELATIVE INDEX 1.76 (< OR =4); SODIUM LEVEL 131 MEQ/L (136-145); TOTAL PROTEIN 6.2 GM/DL (6.4-8.2); TROPONIN I 0.02 NG/ML (< 0.10)
[2020-09-18 20:15] LABS: RSV AMPLIFICATION NEGATIVE (NEGATIVE)
--- NOTE | 2020-09-18 20:36 | REP ---
INDICATION: lightheadedness. COMPARISON: 11/20/2015. TECHNIQUE: SINGLE PORTABLE AP VIEW OF THE CHEST WAS PERFORMED. FINDINGS: There is no acute infiltrate or pulmonary edema. Scattered tiny calcified granulomas are again seen unchanged. Heart is normal in size. Mediastinal silhouette is unchanged. There are degenerative changes of the spine with curvature. IMPRESSION: NO ACUTE PULMONARY DISEASE. <Electronically signed by Diego Vigil > 09/18/202031
--- NOTE | 2020-09-18 21:00 | REPVR ---
PROCEDURE INFORMATION: Exam: CT Abdomen And Pelvis With Contrast Exam date and time: 09/18/2020 8:10 PM Age: 65 years old Clinical indication: Abdominal pain; Generalized; Additional info: Abd pain, hematemesis, rectal bleeding TECHNIQUE: Imaging protocol: Computed tomography of the abdomen and pelvis with contrast. Radiation optimization: All CT scans at this facility use at least one of these dose optimization techniques: automated exposure control; mA and/or kV adjustment per patient size (includes targeted exams where dose is matched to clinical indication); or iterative reconstruction. Contrast material: ISOVUE 370; Contrast volume: 100 ml; Contrast route: INTRAVENOUS (IV); COMPARISON: CT ABD/PEL W/IV ORAL CONTRAS 09/12/2020 3:38 AM FINDINGS: Lungs: Several calcified granulomas are present in the lower lungs. Mild dependent atelectasis. Liver: No mass. Gallbladder and bile ducts: No calcified stones. No ductal dilation. Pancreas: There is mild fat inflammation along the right border of the pancreas in the pancreaticoduodenal groove and mild inflammation of the descending duodenum. Spleen: No splenomegaly. Adrenal glands: Stable bilateral adrenal nodules. Kidneys and ureters: Stable indeterminate attenuating 1.5 cm exophytic superior pole right renal lesion. Atrophic left kidney. No hydronephrosis. Stomach and bowel: Hyperattenuating material is present within the stomach. No gastric pneumatosis or layering contrast to suggest extravasation. Fluid layers throughout the colon and rectum. No layering contrast to suggest active extravasation. Fatty infiltration throughout portions of the colonic [place] are likely secondary to old inflammation. No evidence of active colitis. Appendix: No evidence of appendicitis. Intraperitoneal space: No pneumoperitoneum or hemoperitoneum. Vasculature: Extensive atherosclerotic disease as detailed on CTA from 09/14/2020. Lymph nodes: No enlarged lymph nodes. Urinary bladder: Unremarkable as visualized. Reproductive: Mildly enlarged prostate. Bones/joints: No acute fracture. Levoscoliosis. Soft tissues: Herniorrhaphy clips along the anterior abdominal wall inferiorly. IMPRESSION: 1. Hyperattenuating material layering within the stomach, nonspecific and may represent ingested material or blood clot given the history of hematemesis. There is also nonspecific layering fluid throughout the colon. No layering contrast to suggest active extravasation, allowing for venous phase imaging. 2. Mild pancreatic inflammation extending into the pancreaticoduodenal groove again noted. 3. Numerous additional chronic and incidental findings are otherwise not significantly changed from the recent CTA abdomen from 09/14/2020. Electronically signed by: Matthew Gibson On 09/18/2020 21:01:10 PM
[2020-09-18] MEDS ORDERED: cefTRIAXone SOD 1 GM in D5W MINI-BAG PLUS 50 ML IV ONE (21:10)
[2020-09-18] MEDS ORDERED: OCTREOTIDE ACETATE 1,200 MCG in NS 238.8 ML IV SCH (21:10)
[2020-09-18] MEDS ORDERED: PANTOPRAZOLE SODIUM 40 MG in D5W 50 ML IV SCH (21:10)
[2020-09-18] MEDS ORDERED: LORazepam 2 MG TAB PO PRN (22:30)
[2020-09-18] MEDS ORDERED: IPRATROPIUM 0.5MG/ALBUTEROL 2.5MG INH SOL UD 3ML (DUONEB) NEB PRN (22:35)
[2020-09-18] MEDS ORDERED: IPRATROPIUM 0.5MG/ALBUTEROL 2.5MG INH SOL UD 3ML (DUONEB) NEB ONE (22:35)
--- NOTE | 2020-09-18 23:00 | REPVR ---
PROCEDURE INFORMATION: Exam: US Duplex Left Lower Extremity Veins, Limited Exam date and time: 09/18/2020 10:38 PM Age: 65 years old Clinical indication: Pain; Leg, lower; Left; Additional info: Left calf pain TECHNIQUE: Imaging protocol: Real-time Duplex ultrasound of the Left Lower Extremity with 2-D santos scale, color Doppler flow and spectral waveform analysis with image documentation. Limited exam focused on the left lower extremity veins. COMPARISON: US Duplex, Ext LOWER veins, bilat 02/24/2019 11:22 AM FINDINGS: Left deep veins: The common femoral, femoral, proximal profunda femoral and popliteal veins are patent without thrombus. Normal Doppler waveforms. Normal compressibility and/or augmentation response. Left superficial veins: Saphenofemoral junction is patent without thrombus. Soft tissues: Mild subcutaneous edema. IMPRESSION: No evidence of deep vein thrombosis. Electronically signed by: Matthew Gibson On 09/18/2020 23:00:41 PM
--- NOTE | 2020-09-18 23:09 | HPEPDOC ---
[facility] Medical History & Physical Date of Admission Sep 18, 2020 Date of Service: Sep 18, 2020 History and Physical CHIEF COMPLAINT: Vomiting blood HISTORY OF PRESENT ILLNESS: 65-year-old male history of alcohol abuse and hypertension presents to the hospital because of 1 day history of bleeding. Patient endorses initially noticed bright red blood in his stools which later in that they turn black he also then started vomiting there is blood in his vomit area the episode resolved by the time he came to the hospital. He's feeling better. He was initially hypotensive and diaphoretic responded well to fluid boluses. He is now hypertensive. CT showing blood in the stomach. GI was consulted and recommended Protonix and octreotide drip. Patient's hemoglobin has been stable. He denies any fevers or chills currently denies any abdominal pain denies chest pain or shortness of breath and states he feels well and is hungry. Denies any further episodes of bleeding. Tells me that daily alcohol drinker drinks about 4 beers daily his last drink was today he used to be a heavier drinker in the past. Patient will be admitted to medical service for evaluation by GI in the morning likely for scopes close monitoring of hemoglobin for signs of bleeding. PAST MEDICAL/SURGICAL HISTORY: Hypertension ?"One bad kidney" Umbilical hernia repair Bilateral inguinal hernia repair SOCIAL HISTORY: Endorses daily alcohol use about 4 beers daily last drink was today. Endorses smoking 1 pack of tobacco daily for about 30 years Denies illicit drug use except for cannabis use FAMILY HISTORY: Reviewed and none contributory to this admission ALLERGIES: Please see below. REVIEW OF SYSTEMS: 10 point review of systems complete all negative otherwise stated in HPI HOME MEDICATIONS: Please see below. PHYSICAL EXAMINATION: Constitutional: Awake and alert, in no apparent distress ENT: Sclera are clear. Respiratory: Lungs CTA bilaterally. No respiratory distress. Cardiovascular: RRR S1 and S2 are normal Gastrointestinal: Abdomen is soft, mildly distended, non tender to light and deep patient, BS present and are hyperactive. Musculoskeletal: No lower extremity edema. Left calf tender Neurologic: No focal neurological deficit. Mental Status: A&O x3, normal affect Skin: Warm, dry LABORATORY DATA: See below. IMAGING: See chart MICROBIOLOGY: Please see below. ASSESSMENT/PLAN 65M presents with hematemesis, melena suspected to be secondary to alcohol abuse. Admitted to medical service for management of upper GI bleed and evaluation by GI in the morning. # Hematemesis: bleeding has now stopped. Likely 2/2 ETOH abuse, gastritis/ Marylu valerie tear. Admit to PCU for close monitoring, trend HH. pRBC PRN hgb<8. Discussed with GI Dr Santamaria, will place patient on protonix and octreotide drips. NPO for scopes tomorrow. # Lactic acidosis: 6.3 on admit improved to 1.4 with IVFs. I suspect this is from dehydration and GI bleed. I don't suspect infection at this time. Fu procal . IV rocephin for now. # ?history of liver cirrhosis: no cirrhosis seen on CT. Ceftriaxone prophylaxis for now. Follow up liver US. Trend lactate. # Macrocytic anemia: Fu folate/B12. related to ETOH abuse # ETOH abuse: CIWA protocol. MVN/folate/thiamine after procedure. Ativan PRN. Last drink within past day. No history of ETOH withdrawals. # Hypertension: Continue home meds. Monitor and titrate # DVT prophylaxis: SCDs/TEDs only due to GI bleed. A [facility] Hospitalist Vital Signs Vital Signs Date Time Temp Pulse Resp B/P (MAP) Pulse Ox O2 Delivery O2 Flow Rate FiO2 09/18/20 21:15 85 19 178/86 (116) 90 Nasal Cannula 2.0 09/18/20 19:42 98.1 Laboratory Data Labs 24H Laboratory Tests 2 09/18/20 19:29: Immature Granulocyte % (Auto) 2.2, Neutrophils (%) (Auto) 61.5, Lymphocytes (%) (Auto) 26.0, Monocytes (%) (Auto) 7.9, Eosinophils (%) (Auto) 1.3, Basophils (%) (Auto) 1.1H, Neutrophils # (Auto) 10.2H, Lymphocytes # (Auto) 4.3, Monocytes # (Auto) 1.3H, Eosinophils # (Auto) 0.2, Basophils # (Auto) 0.2, Nucleated Red Blood Cells % (auto) 0.0, Prothrombin Time 14.0, Prothromb Time International Ratio 1.06, Activated Partial Thromboplast Time 24.9L, Anion Gap 10, Glomerular Filtration Rate > 60.0, Calcium Level 8.4L, Total Bilirubin 0.4, Direct Bilirubin 0.2, Aspartate Amino Transf (AST/SGOT) 34, Alanine Aminotransferase (ALT/SGPT) 39, Alkaline Phosphatase 89, Total Creatine Kinase 74, Creatine Kinase MB 1.3, Creatine Kinase MB Relative Index 1.76, Troponin I 0.02, Total Protein 6.2L, Albumin 2.9L, Albumin/Globulin Ratio 0.9, Lipase 244 09/18/20 19:30: Lactic Acid Level 6.3*H 09/18/20 19:33: Coronavirus (COVID-19)(PCR) NEGATIVE, Influenza Type A (RT-PCR) NEGATIVE, Influenza Type B (RT-PCR) NEGATIVE, Respiratory Syncytial Virus (PCR) NEGATIVE 09/18/20 19:53: POC Glucose (Misc Panel) 142H, POC Sodium (Misc Panel) 130L, POC Potassium (Misc Panel) 3.6, POC Chloride (Misc Panel) 95L, POC Total CO2 (Misc Panel) 23.0, POC Blood Urea Nitrogen (Misc Panel 14, POC Ionized Calcium (Misc Panel) 4.7, POC C reatinine (Misc Panel) 1.1, POC Hematocrit (Misc Panel) 43.0 CBC/BMP Laboratory Tests 09/18/20 19:29 Home Medications Scheduled Amlodipine Besylate (Amlodipine Besylate) 10 Mg Tab, 10 MG PO DAILY Ergocalciferol (Vitamin D2) (Vitamin D2) 50,000 Units Cap, 1 TAB PO 1XWK Lisinopril (Lisinopril) 40 Mg Tab, 40 MG PO DAILY Sennosides (Senna) 8.6 Mg Tablet, 17.2 MG PO QHS Tiotropium [place] Monohydrate (Spiriva) 5 Inhalation/Inhaler Powd, 1 INHALATION INH DAILY Scheduled PRN Albuterol Sulfate (Proair Hfa) 108 Mcg/Act Aer, 2 PUFFS INH Q4H PRN for WHEEZING Polyethylene Glycol 3350 (Polyethylene Glycol 3350) 510 Gm Powder, 17 GM PO DAILY PRN for CONSTIPATION Sildenafil Citrate (Sildenafil Citrate) 50 Mg Tablet, 50 MG PO asdirected PRN for ERECTILE DYSFUNCTION Allergies Coded Allergies: No Known Allergies (Verified , 02/13/18) A-FIB/CHADSVASC A-FIB History Current/History of A-Fib/PAF?: No GWENDOLYN ROSS MD Sep 18, 2020 22:43
[2020-09-18 23:55] VITALS: BP 166/88
[2020-09-19] VITALS (8 sets, daily range): BP systolic 134–188; BP diastolic 64–92
[2020-09-19 00:40] LABS: HEMATOCRIT 35.3 % (42.0-52.0); HEMOGLOBIN 11.7 g/dl (13.5-17.5)
[2020-09-19] MEDS: OCTREOTIDE ACETATE 1,200 MCG in NS 238.8 ML IV SCH ×2 (00:44→18:02)
[2020-09-19] MEDS: THIAMINE 100 MG TAB PO SCH ×3 (00:44→20:13)
[2020-09-19] MEDS: PANTOPRAZOLE SODIUM 40 MG in D5W MINI-BAG PLUS 50 ML IV SCH ×6 (00:44→23:58)
[2020-09-19] MEDS: ACETAMINOPHEN TAB 650MG DOSE (2X325MG) PO PRN (01:55)
[2020-09-19 07:20] LABS: HEMATOCRIT 32.5 % (42.0-52.0); HEMOGLOBIN 10.8 g/dl (13.5-17.5); MEAN CORPUSCULAR HEMOGLOBIN 33.5 pg (27.0-33.0); MEAN CORPUSCULAR HGB CONC 33.2 g/dl (32.0-36.5); MEAN CORPUSCULAR VOLUME 100.9 fl (80.0-96.0); PLATELET COUNT, AUTOMATED 279 10^3/uL (150-450); RED BLOOD COUNT 3.22 10^6/uL (4.30-6.10); WHITE BLOOD COUNT 11.8 10^3/uL (4.0-10.0)
[2020-09-19] MEDS: TIOTROPIUM INHALER/CAPSULE (SPIRIVA) INH SCH (07:31)
[2020-09-19 08:07] LABS: ALBUMIN 2.8 GM/DL (3.2-5.2); ALT/SGPT 33 U/L (12-78); BILIRUBIN,TOTAL 0.5 MG/DL (0.2-1.0); BLOOD UREA NITROGEN 13 MG/DL (7-18); CALCIUM LEVEL 8.6 MG/DL (8.8-10.2); CARBON DIOXIDE LEVEL 27 MEQ/L (21-32); CHLORIDE LEVEL 104 MEQ/L (98-107); CREATININE FOR GFR 0.77 MG/DL (0.70-1.30); GLOMERULAR FILTRATION RATE > 60.0 (>49); GLUCOSE, FASTING 122 MG/DL (70-100); MAGNESIUM LEVEL 2.1 MG/DL (1.8-2.4); POTASSIUM SERUM 4.7 MEQ/L (3.5-5.1); SODIUM LEVEL 134 MEQ/L (136-145); TOTAL PROTEIN 5.7 GM/DL (6.4-8.2)
[2020-09-19] MEDS: FOLIC ACID 1 MG TAB PO SCH (08:09)
[2020-09-19] MEDS: MULTIVITAMINS/MINERALS THERAP 1 TAB PO SCH (08:09)
[2020-09-19] MEDS ORDERED: lisinopriL 40 MG TAB PO SCH (09:00)
[2020-09-19] MEDS: NICOTINE 14 MG/24 HR TRANSDERMAL TD SCH (09:59)
--- NOTE | 2020-09-19 10:52 | IPNPDOC ---
Text Note Date of Service The patient was seen on 09/19/20. NOTE Subjective: Patient is a 65-year-old male with a PMHx of HTN , presented to the emergency room after reporting blood in his stool. Patient reported that yesterday at around 4-5 PM he had a bloody bowel movement followed by bloody emesis and came to the emergency room for further evaluation. Patient was admitted to the hospital service for further evaluation, treatment, and gastroenterology was called on consultation. Patient had reported that he does drink alcohol daily, at about 4 beers a day. Did report a heavy alcohol use in the past. Patient was seen and examined at the bedside. He reports that he has had another dark/bloody bowel movement at midnight. Has not had any further bowel movements since that point. Patient denies any further nausea, vomiting. Denies any chest pain, shortness breath or palpitations. Does report some upper abdominal pain. Denies any urinary discomfort. Objective: Vitals (See below) General: Lying in bed, appears comfortable, AAOx3 HEENT: NC, AT CVS: +S1S2 Lungs: Fair air entry b/l, no appreciated, crackles or rhonchi. Mild wheezing is appreciated bilaterally Abdomen: Soft, nondistended, epigastric tenderness is appreciated Extremities: Lower extremities are without any edema Imaging: CXR 09/18: NO ACUTE PULMONARY DISEASE. CT abdomen / pelvis 09/18: 1. Hyperattenuating material layering within the stomach, nonspecific and may represent ingested material or blood clot given the history of hematemesis. There is also nonspecific layering fluid throughout the colon. No layering contrast to suggest active extravasation, allowing for venous phase imaging. 2. Mild pancreatic inflammation extending into the pancreaticoduodenal groove again noted. 3. Numerous additional chronic and incidental findings are otherwise not significantly changed from the recent CTA abdomen from 09/14/2020. Vascular US 09/18: No evidence of deep vein thrombosis. Liver US 09/18: PENDING Assessment and plan: Acute blood loss anemia - suspected 2/2 upper GI bleed - Patient reports that he has had dark bloody bowel movement yesterday afternoon and again at midnight - Patient is hemodynamically stable - Physical reveals epigastric tenderness - Hg has trended down; however, this can be a dilutional etiology - will continue to follow hemoglobin trend every 6 hours - c/w Protonix / Octreotide - Gastroenterology on consultation; I discussed the case with Dr. Santamaria; will evaluate today for endoscopy today/tomorrow - c/w NPO for now s/p Lactic acidosis Questionable cirrhosis - Albumin slightly low / INR within normal range - CT abdomen does not reveal any evidence of cirrhosis - Liver ultrasound was done - c/w Ceftriaxone (re: Prophylaxis for SBP) Leukocytosis - possibly 2/2 reactive etiology - Has been trending down - Patient is afebrile Alcohol abuse - c/w Thiamine / Folate / Multivitamins - c/w CIWA protocol with Ativan HTN - BP well controlled currently - Will hold Lisinopril / Amlodipine COPD - Mild wheezing noted - c/w inhaled therapy as ordered GI prophylaxis - See above DVT prophylaxis - c/w TEDs/Sequentials Disposition: - Awaiting evaluation by gastroenterology. Consideration for likely EGD today/tomorrow VS,Fishbone, I+O VS, Fishbone, I+O Laboratory Tests 09/18/20 19:29 09/19/20 00:01 09/19/20 06:58 Vital Signs Date Time Temp Pulse Resp B/P (MAP) Pulse Ox O2 Delivery O2 Flow Rate FiO2 09/19/20 07:33 97.8 84 20 134/78 (96) 94 Room Air 09/19/20 04:00 2.0 I&O- Last 24 Hours up to 6 AM 09/19/20 05:59 Intake Total 1050 ml Output Total 750 ml Balance 300 ml NIKHIL KATHLEEN MD Sep 19, 2020 10:52
--- NOTE | 2020-09-19 12:09 | REP ---
INDICATION: Evaluate for liver cirrhosis. COMPARISON: CT 09/18/2020. TECHNIQUE: Real-time sonographic evaluation of right upper quadrant performed. FINDINGS: The gallbladder demonstrates no evidence of intraluminal sludge or calculi, wall thickening or pericholecystic fluid. There is no intrahepatic or extrahepatic biliary dilatation, common bile duct measures 4 mm in maximum diameter. Liver demonstrates diffuse heterogeneous increased echotexture suggesting diffuse fibrofatty infiltration. No gross mass is seen of the liver. The pancreas is not seen due to overlying bowel gas. The right kidney demonstrates no hydronephrosis, with a normal size of cm in length. No free fluid is seen. IMPRESSION: Diffuse fibrofatty infiltration of the liver. Otherwise negative right upper quadrant ultrasound. <Electronically signed by Diego Vigil > 09/19/20 [id number]
[2020-09-19 12:21] LABS: HEMATOCRIT 33.6 % (42.0-52.0); HEMOGLOBIN 11.2 g/dl (13.5-17.5)
--- NOTE | 2020-09-19 14:06 | CR.PDOC ---
General Date of Consultation: Sep 19, 2020 Referring Provider: NIKHIL KATHLEEN MD Attending Physician: KELLY CORDOVA MD Consultation Primary physician/ hospitalist: -Dr. Kathleen Reason for consult: -GI bleeding. HPI: 65-year-old male patient with HTN, bilateral inguinal hernia repair, umbilical hernia repair, chronic alcohol use (drinks 15 beers most days), active smoker, COPD, presented to ER for complaints of multiple bloody bowel movements and at least 1 episode of vomiting blood. GI was consulted for the same. Patient reports drinking at least 7-8 beers yesterday, taking pain medication (does not recall the name, but reports as black pill) for back pain, and acute onset of stomach upset symptoms with nausea, vomiting x 1 and multiple diarrheal bowel movements and which she noted blood. Patient denies any abdominal pain, chest pain, shortness of breath, sick contacts, unusual food intake, fever, chills, and recent travel. Patient does report chronic constipation for which she takes MiraLAX. Review of Systems: GI: as stated above CVS: No chest pain, No palpitations, No leg swelling. RS: No Shortness of breath, but reports wheezing from COPD ( reports taking two inhalers at home). BULK MAIL CLERK: No dizziness, No motor weakness, No sensory problems Hematology: No bruising, No gum bleeding, Musculoskeletal: No joint pain, ambulating well. Skin: No rash : No hematuria, No burning sensation of the urine ENT: No ear discharge/ pain, No dysphagia. Eyes: No photophobia. Jaundice Home medications: reviewed. Antithrombotic agents: -None Medical h/o: As above. Surgical h/o: Had hernia surgery (ruptured bowel obstruction as per description by patient) Social h/o: Alcohol: -Chronic heavy use, smoking: Active, IVDA/ drugs: Denies, except marijuana as per EMR.. Family h/o of GI cancers - None Prior Endoscopies: --- EGD: -None in [facility] --- Colonoscopy: -Colonoscopy by Dr. Gaxiola in 2012 - showed sigmoid polyp removed completely. Prior GI evaluations: -None in [facility] Exam: Vitals: reviewed General: Alert and oriented x 3, not in distress HEENT: NO pallor, no icterus. Normal oropharynx, NO cervical lymph nodes. Chest: symmetric with bilateral clear air entry, CVS: S1, S2 heard, normal, no murmurs . Abdomen: non-distended, midline surgical scar from prior ventral hernia and inguinal hernia surgeries, soft, non-tender, no palpable masses, normal bowel sounds heard. Rectal exam: Patient refused / Deferred at this time in view of scheduled colonoscopy. Extremities: no pedal edema, pulses palpable. BULK MAIL CLERK: no focal motor or sensory deficits. Moves all extremities Skin: no rash. Labs: reviewed. Imaging: reviewed. Impression: -- Acute onset hematemesis and rectal bleeding with minimal to no abdominal pain, h/o heavy alcohol use and NSAID use, slight drop in hemoglobin and hematocrit, -- DDx-- likely lower Gi bleeding ( diverticular vs AVMs) vs rule out Gastritis vs unlikely variceal bleeding ( no Eivdence of liver cirrhosis). Recommendations: - Patient educated about the test results, possible differential diagnoses and All questions answered. - Give PPI ( 40 mg IV pushes twice daily) for 24 hours and then switch to oral therapy. - Avoid NSAIDs, - Monitor Hemoglobin and hematocrit levels and transfuse if needed to keep hemoglobin levels above 7. - Will schedule for EGD and Colonoscopy. after the bowel prep. The procedures, indications, risks (bleeding, perforation, infection, hypotension, respiratory depression, allergy, need for endotracheal intubation, surgery, colostomy, cardiac arrest, even ), benefits, limitations (e.g., missing a lesion), and all other alternatives (including no intervention) were explained to the patient who understood and agreed for the procedures. - Golytely / nulytely 4 liters from 4PM today - to complete by 8 AM tomorrow. - Clear liquid diet till 8 AM tomorrow. - NPO after 8 AM tomorrow. Plan of care discussed with patient and primary team. Patient verbalized understanding and agreed with the plan. Vital Signs/I&O Vital Signs Date Time Temp Pulse Resp B/P (MAP) Pulse Ox O2 Delivery O2 Flow Rate FiO2 09/19/20 12:00 98.0 81 20 149/76 (100) 94 Room Air 09/19/20 04:00 2.0 I&O- Last 24 Hours up to 6 AM 09/19/20 06:00 Intake Total 1050 ml Output Total 1200 ml Balance -150 ml Laboratory Data Labs 24H Laboratory Tests 2 09/18/20 19:29: Immature Granulocyte % (Auto) 2.2, Neutrophils (%) (Auto) 61.5, Lymphocytes (%) (Auto) 26.0, Monocytes (%) (Auto) 7.9, Eosinophils (%) (Auto) 1.3, Basophils (%) (Auto) 1.1H, Neutrophils # (Auto) 10.2H, Lymphocytes # (Auto) 4.3, Monocytes # (Auto) 1.3H, Eosinophils # (Auto) 0.2, Basophils # (Auto) 0.2, Nucleated Red Blood Cells % (auto) 0.0, Prothrombin Time 14.0, Prothromb Time International Ratio 1.06, Activated Partial Thromboplast Time 24.9L, Anion Gap 10, Glomerular Filtration Rate > 60.0, Calcium Level 8.4L, Total Bilirubin 0.4, Direct Bilirubin 0.2, Aspartate Amino Transf (AST/SGOT) 34, Alanine Aminotransferase (ALT/SGPT) 39, Alkaline Phosphatase 89, Total Creatine Kinase 74, Creatine Kinase MB 1.3, Creatine Kinase MB Relative Index 1.76, Troponin I 0.02, Total Protein 6.2L, Albumin 2.9L, Albumin/Globulin Ratio 0.9, Lipase 244 09/18/20 19:30: Lactic Acid Level 6.3*H 09/18/20 19:33: Coronavirus (COVID-19)(PCR) NEGATIVE, Influenza Type A (RT-PCR) NEGATIVE, Influ zev Type B (RT-PCR) NEGATIVE, Respiratory Syncytial Virus (PCR) NEGATIVE 09/18/20 19:53: POC Glucose (Misc Panel) 142H, POC Sodium (Misc Panel) 130L, POC Potassium (Misc Panel) 3.6, POC Chloride (Misc Panel) 95L, POC Total CO2 (Misc Panel) 23.0, POC Blood Urea Nitrogen (Misc Panel 14, POC Ionized Calcium (Misc Panel) 4.7, POC Creatinine (Misc Panel) 1.1, POC Hematocrit (Misc Panel) 43.0 09/19/20 00:01: Lactic Acid Level 1.4 09/19/20 06:58: Lactic Acid Level 1.0, Nucleated Red Blood Cells % (auto) 0.0, Anion Gap 3L, Glomerular Filtration Rate > 60.0, Calcium Level 8.6L, Magnesium Level 2.1, Total Bilirubin 0.5, Aspartate Amino Transf (AST/SGOT) 36, Alanine Aminotransferase (ALT/SGPT) 33, Alkaline Phosphatase 79, Total Protein 5.7L, Albumin 2.8L, Albumin/Globulin Ratio 1.0 CBC/BMP Laboratory Tests 09/18/20 19:29 09/19/20 00:01 09/19/20 06:58 09/19/20 12:11 Allergies Coded Allergies: No Known Allergies (Verified , 02/13/18) Home Medications Scheduled Amlodipine Besylate (Amlodipine Besylate) 10 Mg Tab, 10 MG PO DAILY, (Reported) Ergocalciferol (Vitamin D2) (Vitamin D2) 50,000 Units Cap, 1 TAB PO 1XWK, (Reported) Lisinopril (Lisinopril) 40 Mg Tab, 40 MG PO DAILY, (Reported) Sennosides (Senna) 8.6 Mg Tablet, 17.2 MG PO QHS, (Reported) Tiotropium [place] Monohydrate (Spiriva) 5 Inhalation/Inhaler Powd, 1 INHALATION INH DAILY, (Reported) Scheduled PRN Albuterol Sulfate (Proair Hfa) 108 Mcg/Act Aer, 2 PUFFS INH Q4H PRN for WHEEZING, (Reported) Polyethylene Glycol 3350 (Polyethylene Glycol 3350) 510 Gm Powder, 17 GM PO DAILY PRN for CONSTIPATION, (Reported) Sildenafil Citrate (Sildenafil Citrate) 50 Mg Tablet, 50 MG PO asdirected PRN for ERECTILE DYSFUNCTION, (Reported) KELLY CORDOVA MD Sep 19, 2020 14:06
--- NOTE | 2020-09-19 15:55 | ECGEPIP ---
[facility] - ED Test Date: 2020-09-18 Pat Name: CHARLOTTE LEMUS Department: Room: [place] [address] Gender: Male Home Health Care Provider: SHELLEY : 1955 Requested By: ANDREINA Solis Order Number: [id number] Reading MD: Jt Kirk Measurements Intervals [place] Rate: 78 P: TX: 148 QRS: -47 QRSD: 88 T: 34 QT: 402 QTc: 458 Interpretive Statements Normal sinus rhythm LEFT AXIS DEVIATION Delayed anterior R wave progression Similar to tracing done 09-14-20 Electronically Signed on 09-19-2020 15:55:19 EDT by Jt Kirk
[2020-09-19] MEDS ORDERED: amLODIPine 5 MG TAB PO ONE (17:35)
[2020-09-19] MEDS ORDERED: NULYTELY SOLN 4000ML BTL PO ONE (18:00)
[2020-09-19 18:09] LABS: HEMATOCRIT 30.4 % (42.0-52.0)
[2020-09-19] MEDS ORDERED: ENTER DRUG NAME HERE (PATIENT'S OWN MED) INH PRN (18:15)
[2020-09-19] MEDS ORDERED: cefTRIAXone SOD 1 GM in D5W MINI-BAG PLUS 50 ML IV SCH (21:00)
[2020-09-19] MEDS ORDERED: hydrALAZINE 20MG/ML 1ML VIAL (J0360 PER 20MG) IV ONE (21:25)
[2020-09-19] MEDS: ALBUTEROL 90 MCG/ACT 8GM HFA INHALER INH PRN (22:30)
[2020-09-20] VITALS (7 sets, daily range): BP systolic 135–190; BP diastolic 79–99
[2020-09-20 00:16] LABS: HEMATOCRIT 32.2 % (42.0-52.0); HEMOGLOBIN 10.7 g/dl (13.5-17.5)
[2020-09-20] MEDS: PANTOPRAZOLE SODIUM 40 MG in D5W MINI-BAG PLUS 50 ML IV SCH ×4 (04:02→20:34)
[2020-09-20 05:23] LABS: BASO # 0.1 10^3/uL (0.0-0.2); EOS # 0.1 10^3/uL (0.0-0.5); EOS % 1.1 % (0.0-3.0); HEMATOCRIT 33.5 % (42.0-52.0); HEMOGLOBIN 11.1 g/dl (13.5-17.5); LYMPH # 1.8 10^3/uL (1.5-5.0); LYMPH % 15.5 % (24.0-44.0); MEAN CORPUSCULAR HEMOGLOBIN 33.2 pg (27.0-33.0); MEAN CORPUSCULAR HGB CONC 33.1 g/dl (32.0-36.5); MEAN CORPUSCULAR VOLUME 100.3 fl (80.0-96.0); MONO # 0.9 10^3/uL (0.0-0.8); MONO % 8.1 % (2.0-8.0); NEUTROPHILS # 8.5 10^3/uL (1.5-8.5); NEUTROPHILS % 73.8 % (36.0-66.0); PLATELET COUNT, AUTOMATED 310 10^3/uL (150-450); RED BLOOD COUNT 3.34 10^6/uL (4.30-6.10); WHITE BLOOD COUNT 11.6 10^3/uL (4.0-10.0)
[2020-09-20 06:06] LABS: ALBUMIN 3.2 GM/DL (3.2-5.2); ALT/SGPT 44 U/L (12-78); BILIRUBIN,TOTAL 0.4 MG/DL (0.2-1.0); BLOOD UREA NITROGEN 9 MG/DL (7-18); CALCIUM LEVEL 8.4 MG/DL (8.8-10.2); CARBON DIOXIDE LEVEL 31 MEQ/L (21-32); CHLORIDE LEVEL 101 MEQ/L (98-107); CREATININE FOR GFR 0.72 MG/DL (0.70-1.30); GLOMERULAR FILTRATION RATE > 60.0 (>49); GLUCOSE, FASTING 123 MG/DL (70-100); POTASSIUM SERUM 3.7 MEQ/L (3.5-5.1); SODIUM LEVEL 136 MEQ/L (136-145); TOTAL PROTEIN 6.4 GM/DL (6.4-8.2)
[2020-09-20] MEDS: ALBUTEROL 90 MCG/ACT 8GM HFA INHALER INH PRN ×2 (07:33→23:32)
[2020-09-20] MEDS: TIOTROPIUM INHALER/CAPSULE (SPIRIVA) INH SCH (07:45)
[2020-09-20] MEDS: THIAMINE 100 MG TAB PO SCH ×2 (08:02→23:19)
[2020-09-20] MEDS: MULTIVITAMINS/MINERALS THERAP 1 TAB PO SCH (08:02)
[2020-09-20] MEDS: NICOTINE 14 MG/24 HR TRANSDERMAL TD SCH (08:02)
[2020-09-20] MEDS: FOLIC ACID 1 MG TAB PO SCH (08:02)
--- NOTE | 2020-09-20 09:36 | IPNPDOC ---
Text Note Date of Service The patient was seen on 09/20/20. NOTE Subjective: Patient is a 65-year-old male with a PMHx of HTN , presented to the emergency room after reporting blood in his stool. Patient reported that yesterday at around 4-5 PM he had a bloody bowel movement followed by bloody emesis and came to the emergency room for further evaluation. Patient was admitted to the hospital service for further evaluation, treatment, and gastroenterology was called on consultation. Patient had reported that he does drink alcohol daily, at about 4 beers a day. Did report a heavy alcohol use in the past. Patient was seen and examined at the bedside. Patient reports that he has had difficulty sleeping at night while he was taking a bowel prep, of which she is only finished half. He denies any chest pain, shortness breath, palpitations. Has not experience any further nausea, vomiting. Has not had any abdominal pain. Reports that he has had several bowel movements, most have been bloody. Objective: Vitals (See below) General: Patient sitting up in bed, appears to be comfortable, not in any acute distress, is awake, alert, oriented HEENT: NC, AT CVS: +S1S2 Lungs: There is fair air entry bilaterally without any evidence of wheezing, crackles or rhonchi Abdomen: Soft, obese, nondistended. Mild epigastric tenderness is appreciated Extremities: No edema of lower tremors as noted Imaging: CXR 09/18: NO ACUTE PULMONARY DISEASE. CT abdomen / pelvis 09/18: 1. Hyperattenuating material layering within the stomach, nonspecific and may represent ingested material or blood clot given the history of hematemesis. There is also nonspecific layering fluid throughout the colon. No layering contrast to suggest active extravasation, allowing for venous phase imaging. 2. Mild pancreatic inflammation extending into the pancreaticoduodenal groove again noted. 3. Numerous additional chronic and incidental findings are otherwise not significantly changed from the recent CTA abdomen from 09/14/2020. Vascular US 09/18: No evidence of deep vein thrombosis. Liver US 09/18: Diffuse fibrofatty infiltration of the liver. Otherwise negative right upper quadrant ultrasound. Assessment and plan: Acute blood loss anemia - suspected 2/2 GI bleed - Patient has been taking bowel prep and has had several bloody bowel movements - Hemodynamically stable - hypertensive - Epigastric tenderness noted, again - Hg has remained stable. We'll continue to follow trend every 6 hours - c/w Protonix / Octreotide - Gastroenterology on consultation; on for EGD and colonoscopy today - c/w NPO for now s/p Lactic acidosis Questionable cirrhosis - Albumin slightly low / INR within normal range - CT abdomen does not reveal any evidence of cirrhosis - Liver ultrasound was done - c/w Ceftriaxone (re: Prophylaxis for SBP) Leukocytosis - possibly 2/2 reactive etiology - Remains stable - Patient is afebrile Alcohol abuse - c/w Thiamine / Folate / Multivitamins - c/w CIWA protocol with Ativan HTN - BP well controlled currently - Lisinopril / Amlodipine have been resumed Chronic COPD - No wheezing on auscultation this morning - c/w inhaled therapy as ordered GI prophylaxis - See above DVT prophylaxis - c/w TEDs/Sequentials Disposition: - Will receive EGD and colonoscopy today - Awaiting clinical improvement VS,Fishbone, I+O VS, Fishbone, I+O Laboratory Tests 09/19/20 12:11 09/19/20 17:57 09/20/20 00:04 09/20/20 05:03 Vital Signs Date Time Temp Pulse Resp B/P (MAP) Pulse Ox O2 Delivery O2 Flow Rate FiO2 09/20/20 08:00 97.8 80 18 168/81 (110) 91 Room Air 09/19/20 04:00 2.0 I&O- Last 24 Hours up to 6 AM 09/20/20 06:00 Intake Total 2110 ml Output Total 2300 ml Balance -190 ml NIKHIL KATHLEEN MD Sep 20, 2020 09:36
[2020-09-20 10:27] LABS: VITAMIN B12 LEVEL 345 PG/ML (247-911)
[2020-09-20 12:33] LABS: HEMATOCRIT 30.8 % (42.0-52.0); HEMOGLOBIN 10.7 g/dl (13.5-17.5)
[2020-09-20] MEDS: OCTREOTIDE ACETATE 1,200 MCG in NS 238.8 ML IV SCH (17:45)
[2020-09-20 18:02] LABS: HEMATOCRIT 31.9 % (42.0-52.0); HEMOGLOBIN 10.7 g/dl (13.5-17.5)
[2020-09-20] MEDS ORDERED: propofoL 200 MG/20 ML VIAL As Ordered ONE ×3 (19:23→19:49)
[2020-09-20] MEDS ORDERED: LIDOCAINE 2% 100MG/5ML SDV (FOR ANES.) As Ordered ONE (19:23)
[2020-09-20] MEDS ORDERED: ONDANSETRON 4MG/2ML VIAL IV PRN (20:05)
[2020-09-20] MEDS ORDERED: LR 1,000 ML IV SCH (20:05)
--- NOTE | 2020-09-20 20:11 | ROOR ---
Patient Name: Saleem Dobbs Procedure Date: 09/20/2020 7:13 PM Date of : 1955 Age: 65 Room: Main OR Gender: Male Note Status: Finalized Procedure: Upper GI endoscopy Indications: Acute post hemorrhagic anemia, Hematochezia Providers: Jonathon Santamaria MD Referring MD: Gadiel Henning Md, 2. Inpatient 2. Inpatient Requesting Provider: Medicines: Monitored Anesthesia Care Complications: No immediate complications. Procedure: Pre-Anesthesia Assessment: - Prior to the procedure, a History and Physical was performed, and patient medications and allergies were reviewed. The patient is competent. The risks and benefits of the procedure and the sedation options and risks were discussed with the patient. All questions were answered and informed consent was obtained. Patient identification and proposed procedure were verified by the physician, the nurse and the anesthesiologist in the procedure room. Mental Status Examination: alert and oriented. Airway Examination: normal oropharyngeal airway and neck mobility. Respiratory Examination: clear to auscultation. CV Examination: normal. Prophylactic Antibiotics: The patient does not require prophylactic antibiotics. Prior Anticoagulants: The patient has taken no previous anticoagulant or antiplatelet agents. ASA Grade Assessment: II - A patient with mild systemic disease. After reviewing the risks and benefits, the patient was deemed in satisfactory condition to undergo the procedure. The anesthesia plan was to use monitored anesthesia care (MAC). Immediately prior to administration of medications, the patient was re-assessed for adequacy to receive sedatives. The heart rate, respiratory rate, oxygen saturations, blood pressure, adequacy of pulmonary ventilation, and response to care were monitored throughout the procedure. The physical status of the patient was re-assessed after the procedure. The Endoscope was introduced through the mouth, and advanced to the second part of duodenum. The upper GI endoscopy was accomplished without difficulty. The patient tolerated the procedure well. Findings: LA Grade B (one or more mucosal breaks greater than 5 mm, not extending between the tops of two mucosal folds) esophagitis with no bleeding was found in the distal esophagus. No gross lesions were noted in the entire examined stomach. One non-bleeding cratered duodenal ulcer with a clean ulcer base (Tahir Class III) was found in the first portion of the duodenum. The lesion was 20 mm in largest dimension. The second portion of the duodenum and area of the papilla were normal. Impression: - LA Grade B reflux esophagitis. - No gross lesions in the stomach. - Non-bleeding duodenal ulcer with a clean ulcer base (Tahir Class III). - Normal second portion of the duodenum and area of the papilla. - No specimens collected. Recommendation: - Patient has a contact number available for emergencies. The signs and symptoms of potential delayed complications were discussed with the patient. Return to normal activities tomorrow. Written discharge instructions were provided to the patient. - Clear liquid diet today, then advance as tolerated to high fiber diet. - No ibuprofen, naproxen, or other non-steroidal anti-inflammatory drugs for 6 weeks. - Use Protonix (pantoprazole) 40 mg IV twice daily for 24 hours and then switch to PO twice daily - to be taken in morning (1/2 hour before breakfast) and at bedtime ( atleast 3 hours after last meal) for 8 weeks. - Use Pepcid (famotidine) 40 mg PO daily - take driver education instructor on empty stomach for 8 weeks. - Perform an H. pylori urease breath test or serology tomorrow. - If above test shows H. pylori, then patient will need therapy with antibiotic course.. - Repeat upper endoscopy in 3 months to check healing. - Return to GI clinic in [facility] (address [address], [address], [place], [address]) in 4 -- 6 weeks. Please call GI clinic @ [phone] for apppointment date and time. - Return to primary care physician. Procedure Code(s): --- Professional --- 32189, Esophagogastroduodenoscopy, flexible, transoral; diagnostic, including collection of specimen(s) by brushing or washing, when performed (separate procedure) Diagnosis Code(s): --- Professional --- K21.0, Gastro-esophageal reflux disease with esophagitis K26.9, Duodenal ulcer, unspecified as acute or chronic, without hemorrhage or perforation D62, Acute posthemorrhagic anemia K92.1, Melena (includes Hematochezia) CPT copyright 2019 [employer]. All rights reserved. The codes documented in this report are preliminary and upon electric locomotive crane operator review may be revised to meet current compliance requirements. Jonathon Santamaria MD Jonathon Santamaria MD 09/20/2020 8:11:15 PM Electronically signed by Jonathon Santamaria MD Number of Addenda: 0 Note Initiated On: 09/20/2020 7:13 PM Estimated Blood Loss: Estimated blood loss: none.
--- NOTE | 2020-09-20 20:19 | ROOR ---
Patient Name: Saleem Dobbs Procedure Date: 09/20/2020 7:40 PM Date of : 1955 Age: 65 Gender: Male Note Status: Finalized Procedure: Colonoscopy Indications: Hematochezia, Acute post hemorrhagic anemia Providers: Jonathon Santamaria MD Referring MD: 2. Inpatient 2. Inpatient, Gadiel Henning Md Requesting Provider: Medicines: Monitored Anesthesia Care Complications: No immediate complications. Procedure: Pre-Anesthesia Assessment: - Prior to the procedure, a History and Physical was performed, and patient medications and allergies were reviewed. The patient is competent. The risks and benefits of the procedure and the sedation options and risks were discussed with the patient. All questions were answered and informed consent was obtained. Patient identification and proposed procedure were verified by the physician, the nurse and the anesthesiologist in the procedure room. Mental Status Examination: alert and oriented. Airway Examination: normal oropharyngeal airway and neck mobility. Respiratory Examination: clear to auscultation. CV Examination: normal. Prophylactic Antibiotics: The patient does not require prophylactic antibiotics. Prior Anticoagulants: The patient has taken no previous anticoagulant or antiplatelet agents. ASA Grade Assessment: II - A patient with mild systemic disease. After reviewing the risks and benefits, the patient was deemed in satisfactory condition to undergo the procedure. The anesthesia plan was to use monitored anesthesia care (MAC). Immediately prior to administration of medications, the patient was re-assessed for adequacy to receive sedatives. The heart rate, respiratory rate, oxygen saturations, blood pressure, adequacy of pulmonary ventilation, and response to care were monitored throughout the procedure. The physical status of the patient was re-assessed after the procedure. The Colonoscope was introduced through the anus and advanced to the terminal ileum, with identification of the appendiceal orifice and IC valve. The colonoscopy was performed without difficulty. The patient tolerated the procedure well. The quality of the bowel preparation was good. The ileocecal valve, appendiceal orifice, and rectum were photographed. Scope insertion time was 2 minutes. Scope withdrawal time was 9 minutes. The total duration of the procedure was 12 minutes. Findings: The perianal and digital rectal examinations were normal. The terminal ileum appeared normal. A few small and large-mouthed diverticula were found in the sigmoid colon. There was no evidence of diverticular bleeding. Non-bleeding external and internal hemorrhoids were found during retroflexion. The hemorrhoids were large. Impression: - The examined portion of the ileum was normal. - Moderate diverticulosis in the sigmoid colon. There was no evidence of diverticular bleeding. - Non-bleeding external and internal hemorrhoids. - No specimens collected. Recommendation: - Patient has a contact number available for emergencies. The signs and symptoms of potential delayed complications were discussed with the patient. Return to normal activities tomorrow. Written discharge instructions were provided to the patient. - Clear liquid diet today, then advance as tolerated to high fiber diet. - Continue present medications. - Follow the recommendations as per the other procedure note. - Preparation H suppository: Insert rectally daily for 5 days. - Repeat colonoscopy in 1 year for screening purposes. - Return to GI clinic in [facility] (address [address], [address], [place] [address]) in 4 -- 6 weeks. Please call GI clinic @ [phone] for apppointment date and time. - Return to primary care physician. Procedure Code(s): --- Professional --- 37999, Colonoscopy, flexible; diagnostic, including collection of specimen(s) by brushing or washing, when performed (separate procedure) Diagnosis Code(s): --- Professional --- K64.8, Other hemorrhoids K92.1, Melena (includes Hematochezia) D62, Acute posthemorrhagic anemia K57.30, Diverticulosis of large intestine without perforation or abscess without bleeding CPT copyright 2019 [employer]. All rights reserved. The codes documented in this report are preliminary and upon information coder review may be revised to meet current compliance requirements. Jonathon Santamaria MD Jonathon Santamaria MD 09/20/2020 8:19:04 PM Electronically signed by Jonathon Santamaria MD Number of Addenda: 0 Note Initiated On: 09/20/2020 7:40 PM Estimated Blood Loss: Estimated blood loss: none.
[2020-09-20] MEDS: SUCRALFATE SUSP 1GM/10ML UD PO SCH ×2 (23:19→23:31)
[2020-09-21] VITALS (14 sets, daily range): BP systolic 86–182; BP diastolic 48–92
[2020-09-21 00:58] LABS: HEMATOCRIT 31.1 % (42.0-52.0); HEMOGLOBIN 10.3 g/dl (13.5-17.5)
[2020-09-21] MEDS: PANTOPRAZOLE SODIUM 40 MG in D5W MINI-BAG PLUS 50 ML IV SCH ×5 (03:04→23:48)
[2020-09-21 05:46] LABS: BASO # 0.2 10^3/uL (0.0-0.2); BASO % 1.3 % (0.0-1.0); EOS # 0.2 10^3/uL (0.0-0.5); EOS % 2.1 % (0.0-3.0); HEMATOCRIT 29.3 % (42.0-52.0); HEMOGLOBIN 9.7 g/dl (13.5-17.5); LYMPH # 1.8 10^3/uL (1.5-5.0); LYMPH % 15.7 % (24.0-44.0); MEAN CORPUSCULAR HEMOGLOBIN 32.8 pg (27.0-33.0); MEAN CORPUSCULAR HGB CONC 33.1 g/dl (32.0-36.5); MONO % 8.5 % (2.0-8.0); NEUTROPHILS # 8.1 10^3/uL (1.5-8.5); NEUTROPHILS % 71.6 % (36.0-66.0); PLATELET COUNT, AUTOMATED 330 10^3/uL (150-450); RED BLOOD COUNT 2.96 10^6/uL (4.30-6.10); WHITE BLOOD COUNT 11.4 10^3/uL (4.0-10.0)
[2020-09-21] MEDS: SUCRALFATE SUSP 1GM/10ML UD PO SCH ×4 (06:00→23:48)
[2020-09-21 06:11] LABS: ALBUMIN 2.7 GM/DL (3.2-5.2); ALT/SGPT 44 U/L (12-78); BILIRUBIN,TOTAL 0.6 MG/DL (0.2-1.0); BLOOD UREA NITROGEN 8 MG/DL (7-18); CALCIUM LEVEL 8.1 MG/DL (8.8-10.2); CARBON DIOXIDE LEVEL 30 MEQ/L (21-32); CHLORIDE LEVEL 101 MEQ/L (98-107); CREATININE FOR GFR 0.79 MG/DL (0.70-1.30); GLOMERULAR FILTRATION RATE > 60.0 (>49); GLUCOSE, FASTING 110 MG/DL (70-100); MAGNESIUM LEVEL 1.9 MG/DL (1.8-2.4); POTASSIUM SERUM 3.9 MEQ/L (3.5-5.1); SODIUM LEVEL 135 MEQ/L (136-145); TOTAL PROTEIN 5.6 GM/DL (6.4-8.2)
[2020-09-21] MEDS ORDERED: NS 1,000 ML IV ONE ×2 (06:20→23:05)
[2020-09-21] MEDS: TIOTROPIUM INHALER/CAPSULE (SPIRIVA) INH SCH (08:00)
[2020-09-21] MEDS: NICOTINE 14 MG/24 HR TRANSDERMAL TD SCH (08:10)
[2020-09-21] MEDS: THIAMINE 100 MG TAB PO SCH (08:10)
[2020-09-21] MEDS: MULTIVITAMINS/MINERALS THERAP 1 TAB PO SCH (08:10)
[2020-09-21] MEDS: FOLIC ACID 1 MG TAB PO SCH (08:10)
[2020-09-21] MEDS: ALBUTEROL 90 MCG/ACT 8GM HFA INHALER INH PRN (08:16)
--- NOTE | 2020-09-21 09:08 | IPNPDOC ---
Text Note Date of Service The patient was seen on 09/21/20. NOTE Subjective: Patient is a 65-year-old male with a PMHx of HTN , presented to the emergency room after reporting blood in his stool. Patient reported that he had a bloody bowel movement followed by bloody emesis and came to the emergency room for further evaluation. Patient was admitted to the hospital service for further evaluation, treatment, and gastroenterology was called on consultation. Patient had reported that he does drink alcohol daily, at about 4 beers a day. Did report a heavy alcohol use in the past. Patient was seen and examined at the bedside. This morning he noted a large bloody bowel movement. No other medical complaints. He did undergo colonoscopy and EGD yesterday, which revealed a large duodenal ulcer. Objective: Vitals (See below) General: lying comfortably in bed HEENT: NC, AT CVS: +S1S2 Lungs: CTA B/L Abdomen: Soft, obese, nondistended Extremities: No edema Assessment and plan: Acute blood loss anemia - s/p EGD - revealed large dudodenal ulcer - discussed with GI - assistance appreciated - discussed IR - plan for further evaluation today - Hemodynamically stable - hypertensive - protonix IV BID x 1 day, then PO BID - add pepcid - continue sucralfate - s/p Lactic acidosis - H Pylori stool antigen pending Questionable cirrhosis - Albumin slightly low / INR within normal range - CT abdomen does not reveal any evidence of cirrhosis - Liver ultrasound was done Leukocytosis - possibly 2/2 reactive etiology - Remains stable - Patient is afebrile Alcohol abuse - c/w Thiamine / Folate / Multivitamins - c/w CIWA protocol with Ativan HTN - BP well controlled currently - Lisinopril / Amlodipine have been resumed Chronic COPD - stable - c/w inhaled therapy as ordered GI prophylaxis - See above DVT prophylaxis - c/w TEDs/Sequentials Disposition: - Pending further evaluation, possible embolization by IR - GI follow up - H Pylori testing pending Rosalio SANTORO, I+O VSRosalio, I+O Laboratory Tests 09/20/20 12:17 09/20/20 17:46 09/21/20 00:35 09/21/20 05:29 Vital Signs Date Time Temp Pulse Resp B/P (MAP) Pulse Ox O2 Delivery O2 Flow Rate FiO2 09/21/20 08:10 84 143/74 09/21/20 07:14 98.5 20 94 Room Air 09/20/20 20:35 2.0 I&O- Last 24 Hours up to 6 AM 09/21/20 06:00 Intake Total 4965 ml Output Total 2450 ml Balance 2515 ml MARIO ALBERTO FERNANDEZ MD Sep 21, 2020 09:08
[2020-09-21] MEDS ORDERED: ISOVUE-300 61% 50ML VIAL As Ordered ONE ×2 (14:47→16:06)
[2020-09-21] MEDS ORDERED: LIDOCAINE 1% MDV 20ML VIAL As Ordered ONE (14:47)
--- NOTE | 2020-09-21 15:29 | IRMSE ---
[facility] IR Moderate Sedation Eval. Date and Time Date: Sep 21, 2020 Time: 15:29 ASA Classification ASA Classification: II-Mild systemic disease Mallampati Score: II NPO: Yes Obstructive Sleep Apnea: No Interval Plan: moderate sedation JEREMIAS MCCALL MD Sep 21, 2020 15:29
[2020-09-21] MEDS ORDERED: MIDAZOLAM INJ 2MG/2ML VIAL (J2250 PER 1MG) As Ordered ONE ×2 (15:33→16:27)
[2020-09-21] MEDS ORDERED: fentaNYL 100 MCG/2 ML INJECTION (J3010) As Ordered ONE ×2 (15:33→16:27)
[2020-09-21] MEDS ORDERED: diphenhydrAMINE 50MG/ML VIAL (J1200) As Ordered ONE (15:33)
[2020-09-21] MEDS ORDERED: ONDANSETRON 4MG/2ML VIAL IV PRN (18:00)
[2020-09-21] MEDS ORDERED: LR 1,000 ML IV SCH (18:05)
[2020-09-21] MEDS: PERCOCET 5MG/325MG TAB PO PRN (18:29)
[2020-09-21] MEDS: ACETAMINOPHEN TAB 650MG DOSE (2X325MG) PO PRN (22:05)
[2020-09-22] VITALS (11 sets, daily range): BP systolic 105–156; BP diastolic 50–84
[2020-09-22] MEDS: ALBUTEROL 90 MCG/ACT 8GM HFA INHALER INH PRN ×3 (00:09→22:46)
[2020-09-22] MEDS: SUCRALFATE SUSP 1GM/10ML UD PO SCH ×4 (04:19→23:15)
[2020-09-22] MEDS: PANTOPRAZOLE SODIUM 40 MG in D5W MINI-BAG PLUS 50 ML IV SCH ×5 (04:21→21:18)
[2020-09-22 05:38] LABS: BASO # 0.1 10^3/uL (0.0-0.2); BASO % 0.6 % (0.0-1.0); EOS # 0.1 10^3/uL (0.0-0.5); EOS % 0.5 % (0.0-3.0); HEMATOCRIT 23.8 % (42.0-52.0); HEMOGLOBIN 7.8 g/dl (13.5-17.5); LYMPH # 1.8 10^3/uL (1.5-5.0); MEAN CORPUSCULAR HEMOGLOBIN 33.5 pg (27.0-33.0); MEAN CORPUSCULAR HGB CONC 32.8 g/dl (32.0-36.5); MEAN CORPUSCULAR VOLUME 102.1 fl (80.0-96.0); MONO # 0.8 10^3/uL (0.0-0.8); MONO % 6.4 % (2.0-8.0); NEUTROPHILS % 77.7 % (36.0-66.0); PLATELET COUNT, AUTOMATED 292 10^3/uL (150-450); RED BLOOD COUNT 2.33 10^6/uL (4.30-6.10); WHITE BLOOD COUNT 12.9 10^3/uL (4.0-10.0)
[2020-09-22 06:53] LABS: ALBUMIN 2.5 GM/DL (3.2-5.2); ALT/SGPT 35 U/L (12-78); BILIRUBIN,TOTAL 0.3 MG/DL (0.2-1.0); BLOOD UREA NITROGEN 9 MG/DL (7-18); CALCIUM LEVEL 7.8 MG/DL (8.8-10.2); CARBON DIOXIDE LEVEL 26 MEQ/L (21-32); CHLORIDE LEVEL 104 MEQ/L (98-107); CREATININE FOR GFR 0.95 MG/DL (0.70-1.30); GLOMERULAR FILTRATION RATE > 60.0 (>49); GLUCOSE, FASTING 122 MG/DL (70-100); POTASSIUM SERUM 3.7 MEQ/L (3.5-5.1); SODIUM LEVEL 138 MEQ/L (136-145)
[2020-09-22] MEDS: TIOTROPIUM INHALER/CAPSULE (SPIRIVA) INH SCH (08:00)
[2020-09-22] MEDS: NICOTINE 14 MG/24 HR TRANSDERMAL TD SCH ×2 (08:35→13:57)
[2020-09-22] MEDS: MULTIVITAMINS/MINERALS THERAP 1 TAB PO SCH (08:36)
[2020-09-22] MEDS: FOLIC ACID 1 MG TAB PO SCH (08:36)
--- NOTE | 2020-09-22 11:28 | IPN ---
PROGRESS NOTE DATE: 09/22/2020 SUBJECTIVE: Saleem was seen in PCU. He reportedly had interventional radiology procedure notes of which are not currently available. He was admitted with bright red blood per rectum. Upper endoscopy showed a large nonbleeding duodenal ulcer with a clean ulcer base. The patient has a past history of heavy alcohol use of at least four drinks a day. He is currently on a withdrawal protocol. OBJECTIVE: VITAL SIGNS: Afebrile. Vital signs stable. LUNGS: Clear. HEART: Regular rate and rhythm. ABDOMEN: Soft and nontender. EXTREMITIES: No peripheral edema. LABORATORY DATA: Hemoglobin is down to 7.8, platelets 292,000. Sodium 138, potassium 3.7, BUN 9, creatinine 0.9, glucose 122. IMPRESSION AND PLAN: 1. Upper gastrointestinal (GI) bleed presumably from a large duodenal ulcer. He looks to have had an interventional radiology procedure yesterday, but those notes are not yet available. His hemoglobin is down a bit from yesterday. We will transfuse two units of packed red blood cells. Continue on clear liquids. Serial CBCs have been ordered. Continue his IV Protonix. 2. History of alcohol abuse. He has CIWA protocol ordered. 3. Hypertension. He is on amlodipine and lisinopril. Blood pressure is adequately controlled.
[2020-09-22 22:29] LABS: BASO # 0.1 10^3/uL (0.0-0.2); BASO % 0.8 % (0.0-1.0); EOS # 0.2 10^3/uL (0.0-0.5); EOS % 1.1 % (0.0-3.0); HEMATOCRIT 30.4 % (42.0-52.0); LYMPH # 1.8 10^3/uL (1.5-5.0); LYMPH % 13.2 % (24.0-44.0); MEAN CORPUSCULAR HEMOGLOBIN 32.5 pg (27.0-33.0); MEAN CORPUSCULAR HGB CONC 32.9 g/dl (32.0-36.5); MEAN CORPUSCULAR VOLUME 98.7 fl (80.0-96.0); MONO # 1.2 10^3/uL (0.0-0.8); MONO % 8.7 % (2.0-8.0); NEUTROPHILS # 10.4 10^3/uL (1.5-8.5); NEUTROPHILS % 75.3 % (36.0-66.0); PLATELET COUNT, AUTOMATED 286 10^3/uL (150-450); RED BLOOD COUNT 3.08 10^6/uL (4.30-6.10); WHITE BLOOD COUNT 13.8 10^3/uL (4.0-10.0)
[2020-09-23] VITALS: BP 140/73
[2020-09-23] MEDS: PANTOPRAZOLE SODIUM 40 MG in D5W MINI-BAG PLUS 50 ML IV SCH ×2 (02:15→09:25)
[2020-09-23 04:00] VITALS: BP 156/76
[2020-09-23] MEDS: PERCOCET 5MG/325MG TAB PO PRN (04:09)
[2020-09-23 05:57] LABS: BASO # 0.1 10^3/uL (0.0-0.2); BASO % 0.8 % (0.0-1.0); EOS # 0.2 10^3/uL (0.0-0.5); EOS % 1.8 % (0.0-3.0); HEMOGLOBIN 9.7 g/dl (13.5-17.5); LYMPH % 15.5 % (24.0-44.0); MEAN CORPUSCULAR HEMOGLOBIN 32.4 pg (27.0-33.0); MEAN CORPUSCULAR HGB CONC 33.4 g/dl (32.0-36.5); MONO # 0.9 10^3/uL (0.0-0.8); MONO % 7.3 % (2.0-8.0); NEUTROPHILS # 9.3 10^3/uL (1.5-8.5); PLATELET COUNT, AUTOMATED 298 10^3/uL (150-450); RED BLOOD COUNT 2.99 10^6/uL (4.30-6.10); WHITE BLOOD COUNT 12.6 10^3/uL (4.0-10.0)
[2020-09-23] MEDS: SUCRALFATE SUSP 1GM/10ML UD PO SCH ×4 (06:03→23:48)
[2020-09-23 06:33] LABS: ALBUMIN 2.7 GM/DL (3.2-5.2); ALT/SGPT 29 U/L (12-78); BILIRUBIN,TOTAL 0.6 MG/DL (0.2-1.0); BLOOD UREA NITROGEN 4 MG/DL (7-18); CALCIUM LEVEL 8.1 MG/DL (8.8-10.2); CARBON DIOXIDE LEVEL 28 MEQ/L (21-32); CHLORIDE LEVEL 103 MEQ/L (98-107); CREATININE FOR GFR 0.74 MG/DL (0.70-1.30); GLOMERULAR FILTRATION RATE > 60.0 (>49); GLUCOSE, FASTING 122 MG/DL (70-100); MAGNESIUM LEVEL 1.6 MG/DL (1.8-2.4); POTASSIUM SERUM 3.2 MEQ/L (3.5-5.1); SODIUM LEVEL 138 MEQ/L (136-145); TOTAL PROTEIN 5.5 GM/DL (6.4-8.2)
[2020-09-23 07:42] VITALS: BP 174/88
[2020-09-23] MEDS: TIOTROPIUM INHALER/CAPSULE (SPIRIVA) INH SCH (08:00)
[2020-09-23] MEDS: NICOTINE 14 MG/24 HR TRANSDERMAL TD SCH (09:00)
--- NOTE | 2020-09-23 09:58 | IPN ---
PROGRESS NOTE DATE: 09/23/2020 SUBJECTIVE: Saleem is doing well and feels well. He had some bloody stool overnight, but normal stool this morning. He was admitted for upper GI bleed presumably from a large duodenal ulcer with history of alcohol abuse and hypertension. No chest pain, shortness of breath, abdominal pain, vomiting, or hematemesis. I still do not have a procedural note back from interventional radiology concerning what took place there the day before I assumed his care. OBJECTIVE: VITAL SIGNS: Afebrile. Blood pressure 174/88. GENERAL APPEARANCE: Alert, conversant, and in no distress. LUNGS: Clear. HEART: Regular rhythm. ABDOMEN: Soft and nontender. EXTREMITIES: No peripheral edema. Normal strength in the arms and legs. No asterixis. LABORATORY DATA: White count 12.6, hemoglobin 9.7, platelets 298,000. Sodium 138, potassium 3.2, BUN 4, creatinine 0.7, glucose 121. IMPRESSION AND PLAN: 1. Upper gastrointestinal (GI) bleed from presumed large ulcer. He is currently on a Protonix drip, which we will stop and place on p.o. Protonix. Continue Carafate 1 gram q. 6 hours. Get a repeat CBC later this afternoon to make sure it is stable. If it remains stable overnight, we might be able to discharge tomorrow. 2. Hypertension. Blood pressure is mildly elevated. I think it is situational and not high enough to warrant altering his regimen of amlodipine 10 mg daily and lisinopril 20 mg daily. 3. Alcohol abuse. CIWA protocol has been ordered. 4. Tobacco abuse. He is on a nicotine substitution patch. 5. Chronic obstructive pulmonary disease (COPD). Bronchodilator is ordered. Probably discharge tomorrow if hemoglobin and hematocrit (H&H) remain stable.
--- NOTE | 2020-09-23 10:36 | IRPON ---
IR Postoperative Note Date Of Procedure: Sep 21, 2020 Time Of Procedure: 16:00 IR Postoperative Note IR Selective celiac arteriogram. IR Superselective common hepatic artery catheterization. IR Superselective gastroduodenal artery catheterization. IR Gastroduodenal artery coil embolization. IR Moderate sedation. Clinical Information:Hematemesis and melena. Duodenal ulcer seen on endoscopy with stigmata of bleeding, not amenable to endoscopic therapy. Physician: Dr. Torres. Procedure: The patient was advised of the benefits, risks, and alternatives of the procedure and informed consent was obtained. A time out was performed with verification of the patient's name, MRN, site of procedure, and type of procedure to be performed. The patient was positioned in the supine position on the angiographic table. The site was prepped and draped in the usual sterile fashion. Moderate sedation was performed by the physician including the presence of an independent trained RN, who assisted in monitoring the patient's level of consciousness and physiological status. Following the administration of fentanyl and Versed, the physician spent 90 minutes of continuous [id number] time with the patient. A shop welder radiograph reveals no gross abnormality. Ultrasound of the right groin demonstrates patent right common femoral artery. Lidocaine was used for local anesthesia. The right common femoral artery was accessed, under ultrasound guidance with a microintroducer set. A short 0.018" [place] wire was inserted and the needle was exchanged for a 4 Fr microintroducer sheath. The guidewire and dilator were removed and a 0.035" [place] wire was advanced under fluoroscopy guidance and placed into the abdominal aorta. A 5 Fr sheath was placed over the wire. A SOS catheter was advanced over the wire under fluoroscopy guidance and used to selectively catheterize the celiac artery. A celiac arteriogram was performed and this demonstrates celiac artery branching into common hepatic and splenic artery. Left gastric artery arises off the celiac artery and appears to supply branches to the left hepatic lobe. Arteries are small. Gastroduodenal artery arises off the common hepatic artery. No GDA pseudoaneurysm and no extravasation from the GDA. A 2.8 Progret microcatheter was then inserted through the diagnostic catheter and used under fluoroscopy guidance, to superselectively catheterize the distal gastroduodenal artery. An arteriogram was performed and this demonstrates normal flow in the gastroduodenal artery and right gastroepiploic artery. No extravasation. A series of interlock coils were then deployed under fluoroscopy guidance in the gastroduodenal artery, starting distal and working back proximal. The microcatheter was retracted to the proximal GDA and a follow-up arteriogram was performed. This demonstrates persistent forward flow in the proximal gastroduodenal artery. Preserved forward flow in the hepatic arteries. Another coil was deployed under fluoroscopy guidance in the proximal GDA. A follow-up arteriogram was performed and this demonstrates cessation of forward flow in the gastroduodenal artery. Preserved flow to the hepatic arteries. Diagnostic and microcatheter, wire and sheath were removed. A 5 [place] Mynx device was used to close the right groin arteriotomy, pressure held and hemostasis achieved. A sterile dressing was applied to the site. The patient tolerated the procedure well and was returned to the PRU in stable condition. EBL: < 5 mL. Complications:None. Impression: 1. Celiac arteriogram demonstrates small but unremarkable GDA without p seudoaneurysm or active extravasation. 2. Successful empiric GDA embolization for bleeding duodenal ulcer. Thank you for this referral. Cc JEREMIAS Stubbs MD Sep 23, 2020 10:36
[2020-09-23] MEDS: PANTOPRAZOLE 40MG TAB (PROTONIX) PO SCH ×2 (10:38→20:38)
[2020-09-23 12:00] VITALS: BP 152/68
[2020-09-23] MEDS: ALBUTEROL 90 MCG/ACT 8GM HFA INHALER INH SCH ×2 (13:32→20:17)
[2020-09-23 16:17] LABS: HEMOGLOBIN 10.3 g/dl (13.5-17.5); MEAN CORPUSCULAR HEMOGLOBIN 32.4 pg (27.0-33.0); MEAN CORPUSCULAR HGB CONC 33.2 g/dl (32.0-36.5); MEAN CORPUSCULAR VOLUME 97.5 fl (80.0-96.0); PLATELET COUNT, AUTOMATED 321 10^3/uL (150-450); RED BLOOD COUNT 3.18 10^6/uL (4.30-6.10); WHITE BLOOD COUNT 14.4 10^3/uL (4.0-10.0)
[2020-09-23 20:00] VITALS: BP 144/64
[2020-09-23] MEDS ORDERED: ALBUTEROL 90 MCG/ACT 8GM HFA INHALER INH SCH (21:00)
[2020-09-24 04:00] VITALS: BP 160/82
[2020-09-24] MEDS: SUCRALFATE SUSP 1GM/10ML UD PO SCH (05:23)
[2020-09-24 06:04] LABS: BASO # 0.1 10^3/uL (0.0-0.2); BASO % 0.9 % (0.0-1.0); EOS # 0.2 10^3/uL (0.0-0.5); EOS % 1.1 % (0.0-3.0); HEMATOCRIT 31.1 % (42.0-52.0); HEMOGLOBIN 10.5 g/dl (13.5-17.5); LYMPH # 1.6 10^3/uL (1.5-5.0); LYMPH % 11.9 % (24.0-44.0); MEAN CORPUSCULAR HEMOGLOBIN 32.6 pg (27.0-33.0); MEAN CORPUSCULAR HGB CONC 33.8 g/dl (32.0-36.5); MEAN CORPUSCULAR VOLUME 96.6 fl (80.0-96.0); MONO # 1.1 10^3/uL (0.0-0.8); MONO % 7.9 % (2.0-8.0); NEUTROPHILS # 10.4 10^3/uL (1.5-8.5); NEUTROPHILS % 77.4 % (36.0-66.0); PLATELET COUNT, AUTOMATED 354 10^3/uL (150-450); RED BLOOD COUNT 3.22 10^6/uL (4.30-6.10); WHITE BLOOD COUNT 13.4 10^3/uL (4.0-10.0)
[2020-09-24 06:28] LABS: ALBUMIN 2.8 GM/DL (3.2-5.2); ALT/SGPT 30 U/L (12-78); BILIRUBIN,TOTAL 0.5 MG/DL (0.2-1.0); BLOOD UREA NITROGEN 4 MG/DL (7-18); CALCIUM LEVEL 8.4 MG/DL (8.8-10.2); CARBON DIOXIDE LEVEL 30 MEQ/L (21-32); CHLORIDE LEVEL 100 MEQ/L (98-107); GLOMERULAR FILTRATION RATE > 60.0 (>49); GLUCOSE, FASTING 82 MG/DL (70-100); MAGNESIUM LEVEL 1.6 MG/DL (1.8-2.4); POTASSIUM SERUM 3.5 MEQ/L (3.5-5.1); SODIUM LEVEL 135 MEQ/L (136-145)
[2020-09-24] MEDS: TIOTROPIUM INHALER/CAPSULE (SPIRIVA) INH SCH (07:06)
[2020-09-24] MEDS: ALBUTEROL 90 MCG/ACT 8GM HFA INHALER INH SCH (07:07)
[2020-09-24] MEDS: NICOTINE 14 MG/24 HR TRANSDERMAL TD SCH (09:00)
[2020-09-24 09:45] VITALS: BP 160/72
[2020-09-24] MEDS ORDERED: PANT40TA29 PO (09:45)
[2020-09-24] MEDS ORDERED: SUCR1ORA PO (09:45)
[2020-09-24 09:47] VITALS: BP 160/82
[2020-09-24] MEDS: PANTOPRAZOLE 40MG TAB (PROTONIX) PO SCH (09:47)
--- NOTE | 2020-09-24 10:55 | DSES ---
DISCHARGE SUMMARY DATE OF ADMISSION: 09/18/2020 DATE OF DISCHARGE: 09/24/2020 PRINCIPAL DIAGNOSES: Upper GI bleed from large duodenal ulcer with acute blood loss anemia requiring a transfusion. SECONDARY DIAGNOSES: Hypertension, history of alcohol abuse, history of tobacco abuse, history of COPD. HISTORY OF PRESENT ILLNESS: Detailed history and physical per admission. HOSPITAL COURSE: Patient was admitted to a monitored bed and underwent upper and lower endoscopy on 09/20/[address] Santamaria. A large non-bleeding duodenal ulcer with a clean ulcer base was seen. He had a colonoscopy as well. Recommending a repeat colonoscopy in a year. He was seen by Dr. Torres, who performed selective celiac arteriogram and gastroduodenal artery coil embolization on 09/21/2020. He had no evidence of re-bleeding after this. His hemoglobin and hematocrit remained stable. PHYSICAL EXAMINATION: On day of discharge, he is resting comfortably and his vital signs are stable. Blood pressure 160/82, pulse 77, respiratory rate 18. He is afebrile. Lungs clear. Heart regular rhythm. Abdomen soft, nontender. No peripheral edema. LABORATORY DATA: White count 13.4, hemoglobin 10.5, platelets 354,000. Sodium 135, potassium 3.5, BUN 4, creatinine 0.7. Liver function tests are essentially normal. B12 level is normal. Folic acid level is normal. INR was diminished but was normal. COVID test was negative. IMAGING: CT of abdomen and pelvis on admission showed mild pancreatic inflammation, numerous other incidental findings including stable bilateral adrenal nodules and a stable 1.5 cm exophytic superior pole, right renal lesion. DISCHARGE MEDICATIONS: Will continue to be: 1. Albuterol two puffs every 4 hours p.r.n. 2. Amlodipine 10 mg daily. 3. Vitamin D 50,000 units weekly. 4. Lisinopril 40 mg daily. 5. Bowel care. 6. Viagra 50 mg p.r.n. 7. Spiriva one inhalation daily. New Medications: 1. Protonix 40 mg b.i.d. 2. Carafate 1 gram AC and HS. 3. I have set it up for two weeks; will defer to primary care provider and GI follow-up. I want him to continue this regimen. There are no pending labs. He is to follow-up in the interventional radiology clinic in two weeks, and follow-up with GI per their office.
== END 2020-09-24 10:53 | disposition home or self-care (01) | DRG 357 ==
LOC: M ED 19:00 → M ED INP 20:36 → ENRESERV 22:54 → M PCU 23:49
PROVIDERS: ADMIT Family Medicine; ATTEND Family Medicine
PROC: 0DJ08ZZ Inspection of Upper Intestinal Tract, Via Natural or Artificial Opening Endoscopic (ICD-10-PCS; 2020-09-20)
PROC: 0DJD8ZZ Inspection of Lower Intestinal Tract, Via Natural or Artificial Opening Endoscopic (ICD-10-PCS; 2020-09-20)
PROC: 04L23DZ Occlusion of Gastric Artery with Intraluminal Device, Percutaneous Approach (ICD-10-PCS; principal; 2020-09-21 16:30)
PROC: 30233N1 Transfusion of Nonautologous Red Blood Cells into Peripheral Vein, Percutaneous Approach (ICD-10-PCS; 2020-09-22)
DX: K26.4 Chronic or unspecified duodenal ulcer with hemorrhage (principal); D62 Acute posthemorrhagic anemia; E87.2 Acidosis; F10.10 Alcohol abuse, uncomplicated; J44.9 Chronic obstructive pulmonary disease, unspecified; I10 Essential (primary) hypertension; F17.200 Nicotine dependence, unspecified, uncomplicated; Z79.899 Other long term (current) drug therapy; K92.1 Melena; K21.00 Gastro-esophageal reflux disease with esophagitis, without bleeding; K57.30 Diverticulosis of large intestine without perforation or abscess without bleeding; K64.8 Other hemorrhoids

== ENCOUNTER → 2020-10-05 | Outpatient (POV) | payer MEDICARE, MEDICAID ==
[~2020-10-05] VITALS: Ht 170.2 cm; Wt 94.5 kg
[~2020-10-05] MED LIST changes: +PANT40TA29 PO; +PEG31POW PO; +SENN-83 PO; +SUCR1ORA PO
[2020-10-05 08:19] VITALS: BP 194/88
--- NOTE | 2020-10-06 12:31 | IRPN ---
[facility] IR Progress Note IR Progress Note DATE: Oct 05, 2020 FOLLOW-UP: 65-year-old male with known large duodenal ulcer which resulted in recent admission with hematemesis and melena. This was refractory to endoscopic therapy. Patient underwent gastroduodenal artery embolization with myself. Patient denies any further hematemesis or melena. He denies abdominal pain. He states he is eating and drinking well. Normal bowel movements. Patient has not followed up with GI since discharge. ON EXAMINATION: Patient appears well. Abdomen soft nontender. IMPRESSION: Doing well status post GDA embolization for bleeding duodenal ulcer. Patient is to follow-up with GI for ongoing surveillance and ulcer healing. Thank you for this referral Cc Dr. Santamaria Allergies Coded Allergies: No Known Allergies (Verified , 02/13/18) VS,Fishbone, I+O VS, Fishbone, I+O Vital Signs Date Time Temp Pulse Resp B/P (MAP) Pulse Ox O2 Delivery O2 Flow Rate FiO2 10/05/20 08:19 98.2 75 20 194/88 (123) 99 Room Air JEREMIAS MCCALL MD Oct 06, 2020 12:31
== END ==
LOC: M IRPOV 07:55
PROVIDERS: ATTEND Radiology Diagnostic Radiology
DX: Z48.815 Encounter for surgical aftercare following surgery on the digestive system (principal); K26.9 Duodenal ulcer, unspecified as acute or chronic, without hemorrhage or perforation

== ENCOUNTER → 2020-10-08 | Outpatient (CLI) | payer MEDICARE, MEDICAID ==
[~2020-10-08] MED LIST changes: +ISOVUE-370 76% 100ML VIAL As Ordered ONE
--- NOTE | 2020-10-08 16:29 | REP ---
INDICATION: PULMONARY FIBROSIS COMPARISON: 01/09/2012 TECHNIQUE: Contrast-enhanced 100 cc Isovue 370 FINDINGS: The mediastinum and pulmonary odette are unchanged. No mass or adenopathy has developed. Incidental calcified lymph nodes are again seen in the mediastinum and pulmonary odette. There are no pleural or pericardial effusions. The imaged upper abdomen again shows benign adrenal gland nodules and left renal atrophy. The imaged osseous structures are unchanged. Evaluation of the lung cash shows bilateral incidental calcified granulomas. The asymmetric density seen previously in the inferior right upper lobe has resolved. There are 2 stable pleural based nodules in the right middle lobe. No new abnormal nodules, masses, or opacities have developed. IMPRESSION: No acute disease Findings as described above. <Electronically signed by Abelardo Valencia > 10/08/20 [id number]
== END ==
LOC: M RAD 15:47
PROVIDERS: ATTEND Nurse Practitioner Family
DX: J84.10 Pulmonary fibrosis, unspecified (principal)
CPT/HCPCS: 71260; Q9967

== ENCOUNTER 2020-10-17 01:46 | Inpatient (IN) | payer MEDICARE, MEDICAID ==
[~2020-10-17] VITALS: Ht 170.2 cm; Wt 85.5 kg
[~2020-10-17 01:46] MED LIST changes: -ISOVUE-370 76% 100ML VIAL As Ordered ONE
[2020-10-17] MEDS ORDERED: ONDANSETRON 4MG/2ML VIAL IV ONE (04:30)
[2020-10-17] MEDS ORDERED: MORPHINE 4 MG/ML 1ML VIAL/SYRINGE (J2270) IV PRN (04:30)
[2020-10-17 05:00] LABS: BASO # 0.1 10^3/uL (0.0-0.2); BASO % 0.2 % (0.0-1.0); HEMATOCRIT 33.4 % (42.0-52.0); HEMOGLOBIN 11.2 g/dl (13.5-17.5); LYMPH # 0.9 10^3/uL (1.5-5.0); MEAN CORPUSCULAR HEMOGLOBIN 31.7 pg (27.0-33.0); MEAN CORPUSCULAR HGB CONC 33.5 g/dl (32.0-36.5); MEAN CORPUSCULAR VOLUME 94.6 fl (80.0-96.0); MONO % 6.7 % (2.0-8.0); NEUTROPHILS % 84.3 % (36.0-66.0); PLATELET COUNT, AUTOMATED 258 10^3/uL (150-450); RED BLOOD COUNT 3.53 10^6/uL (4.30-6.10)
[2020-10-17 05:04] LABS: WHITE BLOOD COUNT 29.6 10^3/uL (4.0-10.0)
[2020-10-17] MEDS ORDERED: ISOVUE-370 76% 100ML VIAL As Ordered ONE (05:06)
--- NOTE | 2020-10-17 06:42 | REPVR ---
PROCEDURE INFORMATION: Exam: CT Abdomen And Pelvis With Contrast Exam date and time: 10/17/2020 5:20 AM Age: 65 years old Clinical indication: Mass, lump, or swelling; Other: Buttocks; Additional info: Perirectal cellulitis, eval for abscess TECHNIQUE: Imaging protocol: Computed tomography of the abdomen and pelvis with contrast. Radiation optimization: All CT scans at this facility use at least one of these dose optimization techniques: automated exposure control; mA and/or kV adjustment per patient size (includes targeted exams where dose is matched to clinical indication); or iterative reconstruction. Contrast material: ISOVUE 370; Contrast volume: 100 ml; Contrast route: INTRAVENOUS (IV); COMPARISON: CT ABD/PEL W/IV CONTRAST ONLY 09/18/2020 8:02 PM FINDINGS: Lungs: There are lingular calcified granulomas measuring up to 4 mm. There is a 4 mm left lower lobe subpleural lung nodule on axial image 26 appear to be slightly more prominent than the prior exam. Right and left basilar calcified granuloma seen. Liver: The liver is hypoattenuated. Gallbladder and bile ducts: Normal. No calcified stones. No ductal dilation. Pancreas: Surgical clip seen in the region of the pancreatic head. Spleen: Normal. No splenomegaly. Adrenal glands: There is 3.6 x 3.0 cm right adrenal gland lesion. There is 3.3 x 1.8 cm left adrenal gland lesion. Kidneys and ureters: There is a 1.5 cm right upper renal pole exophytic lesion measuring higher than simple fluid. The left kidney is small in size in hypoperfused. There is significant calcification at the origin of the right renal artery. Stomach and bowel: Unremarkable. No obstruction. No mucosal thickening. Appendix: No evidence of appendicitis. Intraperitoneal space: Unremarkable. No free air. No significant fluid collection. 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 Lymph nodes: Unremarkable. No enlarged lymph nodes. Urinary bladder: The urinary bladder is mildly distended with suggestion of wall thickening which could be attributed to under distension. Reproductive: The prostate gland is enlarged and heterogeneous measuring 5.7 x 4.8 cm indenting the posterior wall of the urinary bladder. Bones/joints: There is severe lumbar spine scoliosis with facet and disc degenerative changes. Soft tissues: The patient is status post bilateral inguinal hernia repair with grossly intact surgical mesh. There is extensive subcutaneous air and stranding seen in the right perineum with significant surrounding stranding and inflammation. No walled-off abscess seen. IMPRESSION: 1. Extensive right perineal subcutaneous edema and emphysema with no walled-off collection/abscess suspicious for Lola's gangrene. 2. Nonspecific enlarged and heterogeneous prostate gland indenting the posterior wall of the urinary bladder. Correlate with clinical history, physical exam and PSA level. 3. Suggestion of mild urinary bladder wall thickening which could be attributed to under distension. Underlying cystitis cannot be excluded. Correlate with clinical history and urinalysis. 4. 3.6 cm right and 3.3 cm left adrenal gland mass is, indeterminate on this exam, grossly unchanged since September 12, 2020. Non-emergent adrenal CT is recommended. (Reference: Ritu) 5. Fatty infiltration of the liver. 6. 1.5 cm right upper renal pole dense nodule. Recommend non-emergent MRI without and with contrast or non-emergent CT without and with contrast. MRI is preferred for masses under 1.5 cm. 7. 4 mm left lung base nodule minimally more prominent than the prior exam. Follow-up in 6 months is suggested. COMMENTS: Consistent with the [employer]'s Incidental Findings Committee white paper (J Am Janine Radiol 2018): Any incidental renal lesion less than 1 cm or classified as too small to characterize, or any incidental cystic renal lesion characterized as simple-appearing, is likely benign. No follow-up imaging is recommended for these lesions per consensus recommendations based on imaging criteria. REFERENCES: Ritu LEBRON, et al. Management of Incidental Adrenal Masses: A White Paper of the ACR Incidental Findings Committee. J Am Janine Radiol. 2017;14(8):1189-3157. Electronically signed by: Wade Cehung On 10/17/2020 06:42:29 AM
[2020-10-17] MEDS ORDERED: IMIPENEM/CILASTATIN 500 MG in D5W MINI-BAG PLUS 100 ML IV ONE ×2 (07:00→08:20)
[2020-10-17 07:30] LABS: RSV AMPLIFICATION NEGATIVE (NEGATIVE)
[2020-10-17] MEDS ORDERED: ACETAMINOPHEN TAB 650MG DOSE (2X325MG) PO PRN ×2 (07:50→19:05)
[2020-10-17] MEDS ORDERED: MORPHINE 2 MG/ML 1ML VIAL (J2270) IV PRN (08:05)
[2020-10-17] MEDS ORDERED: ONDANSETRON 4MG/2ML VIAL IV PRN ×2 (08:05→18:05)
[2020-10-17] MEDS ORDERED: ARNU1INH INH (08:07)
[2020-10-17] MEDS ORDERED: PANT-23 PO (08:07)
[2020-10-17] MEDS ORDERED: MELO15TA28 PO (08:07)
[2020-10-17] MEDS ORDERED: ALBUTEROL 90 MCG/ACT 8GM HFA INHALER INH PRN (08:15)
[2020-10-17] MEDS: NS 1,000 ML IV SCH ×2 (08:25→20:10)
[2020-10-17] MEDS: TIOTROPIUM INHALER/CAPSULE (SPIRIVA) INH SCH (08:45)
[2020-10-17] MEDS: FLUTICASONE HFA 110 MCG 12 GM INHALER (FLOVENT) INH SCH ×2 (08:46→20:06)
[2020-10-17] MEDS ORDERED: CLINDAMYCIN 600 MG in IV 1 EA IV SCH (10:00)
[2020-10-17] MEDS ORDERED: MIDAZOLAM INJ 2MG/2ML VIAL (J2250 PER 1MG) As Ordered ONE (10:35)
[2020-10-17] MEDS ORDERED: LIDOCAINE 2% 100MG/5ML SDV (FOR ANES.) As Ordered ONE (10:35)
[2020-10-17] MEDS ORDERED: dexameTHASONE 4 MG/ML 1ML VIAL (J1100 PER 1MG) As Ordered ONE (10:35)
[2020-10-17] MEDS ORDERED: ROCURONIUM BROMIDE 50 MG/5 ML VIAL As Ordered ONE (10:35)
[2020-10-17] MEDS ORDERED: KETAMINE HCL 200 MG/20 ML VIAL As Ordered ONE (10:35)
[2020-10-17] MEDS ORDERED: ONDANSETRON 4MG/2ML VIAL As Ordered ONE (10:35)
[2020-10-17] MEDS ORDERED: fentaNYL 100 MCG/2 ML INJECTION (J3010) As Ordered ONE (10:35)
[2020-10-17] MEDS ORDERED: propofoL 200 MG/20 ML VIAL As Ordered ONE (10:35)
[2020-10-17 11:26] LABS: ALBUMIN 2.6 GM/DL (3.2-5.2); ALT/SGPT 14 U/L (12-78); BLOOD UREA NITROGEN 12 MG/DL (7-18); CALCIUM LEVEL 8.9 MG/DL (8.8-10.2); CARBON DIOXIDE LEVEL 24 MEQ/L (21-32); CHLORIDE LEVEL 97 MEQ/L (98-107); CREATININE FOR GFR 0.98 MG/DL (0.70-1.30); GLOMERULAR FILTRATION RATE > 60.0 (>49); GLUCOSE, FASTING 102 MG/DL (70-100); POTASSIUM SERUM 3.7 MEQ/L (3.5-5.1); SODIUM LEVEL 130 MEQ/L (136-145); TOTAL PROTEIN 5.9 GM/DL (6.4-8.2)
[2020-10-17] MEDS: CLINDAMYCIN 600 MG in IV 1 EA IV SCH ×2 (12:12→20:11)
[2020-10-17] MEDS: CEFTAROLINE FOSAMIL 600 MG in D5W MINI-BAG PLUS 50 ML IV SCH (14:43)
[2020-10-17] MEDS: IMIPENEM/CILASTATIN 1,000 MG in NS 250 ML IV SCH (16:00)
[2020-10-17] MEDS ORDERED: BUPIVACAINE HCL 0.25% 10ML VIAL As Ordered ONE (16:36)
[2020-10-17] MEDS ORDERED: LIDOCAINE 1% MDV 20ML VIAL As Ordered ONE (16:37)
[2020-10-17] MEDS ORDERED: PERCOCET 5MG/325MG TAB PO PRN ×2 (17:45→18:05)
[2020-10-17] MEDS ORDERED: METOCLOPRAMIDE INJ 10MG/2ML VIAL (J2765 PER 1) IV PRN (18:05)
[2020-10-17] MEDS ORDERED: fentaNYL 100 MCG/2 ML INJECTION (J3010) IV PRN (18:05)
[2020-10-17] MEDS ORDERED: NS 1,000 ML IV SCH (18:05)
--- NOTE | 2020-10-17 18:40 | HPEPDOC ---
General Date of Admission October 17, 2020 at 10:43 Date of Service: October 17, 2020 Chief Complaint The patient is a 65-year-old male admitted with a reason for visit of Lola Gangrene & Sepsis. Source: Patient History of Present Illness Mr. 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 Patient was seen in the morning prior to surgery. About 3 days ago, he noticed a bump on his right gluteus. He has had this in the past. Over the three days, it had rapidly grown. It was so painful that he could not sit and had to lay on his side. He reports fever. Denies chest pain, abdominal pain, or dysuria. He came to the ED for evaluation. He had a fever of 100.8 and leukocytosis of 26.9. CT abd/pelvis demonstrated extensive right perineal subcutaneous edema and emphysema concerning for Lola's gangrene. General surgery was consulted. I came down to see the patient. Denies any worsening dyspnea or cough. His is a long time smoker and this has been chronic. He does not use oxygen at home. Otherwise, denies chest pain and was in good health prior to 3 days ago. Patient will be admitted for Lola's gangrene and he went down for surgery. Home Medications Scheduled Amlodipine Besylate (Amlodipine Besylate) 10 Mg Tab, 10 MG PO DAILY, (Reported) Ergocalciferol (Vitamin D2) (Vitamin D2) 50,000 Units Cap, 50,000 UNITS PO 1XWK, (Reported) SATURDAYS Fluticasone Furoate (Arnuity Ellipta) 100 Mcg Blst.w.dev, 1 PUFF INH DAILY, (Reported) Lisinopril (Lisinopril) 40 Mg Tab, 40 MG PO DAILY, (Reported) Pantoprazole Sodium (Pantoprazole Sodium) 40 Mg Tablet.dr, 40 MG PO BID, (Reported) Tiotropium [place] Monohydrate (Spiriva) 5 Inhalation/Inhaler Powd, 1 INHALATION INH DAILY, (Reported) Scheduled PRN Albuterol Sulfate (Proair Hfa) 108 Mcg/Act Aer, 2 PUFFS INH Q4H PRN for WHEEZING, (Reported) Meloxicam (Meloxicam) 15 Mg Tablet, 15 MG PO DAILY PRN for PAIN, (Reported) TAKEN WITH FOOD Polyethylene Glycol 3350 (Polyethylene Glycol 3350) 510 Gm Powder, 17 GM PO DAILY PRN for CONSTIPATION, (Reported) Sennosides (Senna) 8.6 Mg Tablet, 17.2 MG PO QHS PRN for CONSTIPATION, (Reported) Sildenafil Citrate (Sildenafil Citrate) 50 Mg Tablet, 50 MG PO asdirected PRN for ERECTILE DYSFUNCTION, (Reported) Allergies Coded Allergies: No Known Allergies (Verified , 02/13/18) Past Medical History Medical History 1. Hypertension 2. COPD 3. GI bleed Surgical History 1. Umbilical hernia repair 2. Appendectomy 3. Left rotator cuff repair 4. Bilateral inguinal hernia repair Family History Patient denies knowledge of past family history Social History * Smoker: current smoker (Smoked since he was 18 years old. 06/12 ppd) Alcohol: Denies Drugs: marijuana A-FIB/CHADSVASC A-FIB History Current/History of A-Fib/PAF?: No Review of Systems Constitutional: Reports: Fever Eyes: Denies: Vision change ENT: Denies: Sore Throat Skin: Reports: Other (Right peritoneal erythema and swelling) Pulmonary: Reports: Cough (clear sputum, but not more than prior); Denies: Dyspnea Cardiovascular: Denies: Chest Pain Gastrointestinal: Reports: Other Symptoms (Poor appetite); Denies: Abdominal Pain Genitourinary: Denies: Dysuria Hematologic: Denies: Bruising Neurological: Reports: Other Symptoms (Paresthesias in feet) Psych: Denies: Anxiety, Depression Physical Examination General Exam: Positive: Alert, Cooperative Eye Exam: Positive: EOMI; Negative: Sclera icteric ENT Exam: Positive: Atraumatic Neck Exam: Positive: Supple Chest Exam: Positive: Clear to auscultation Heart Exam: Positive: Rate Normal, Regular Rhythm Abdomen Exam: Positive: Normal bowel sounds, Soft; Negative: Tenderness Skin Exam: Positive: Rash (Right gluteal erythema, swelling, tenderness) Neuro Exam: Positive: Normal Speech Psych Exam: Positive: Mental status NL, Mood NL Vital Signs Vital Signs Date Time Temp Pulse Resp B/P (MAP) Pulse Ox O2 Delivery O2 Flow Rate FiO2 10/17/20 16:00 Nasal Cannula 2.0 10/17/20 11:00 97.8 86 20 96 10/17/20 10:30 157/67 (97) Laboratory Data Labs 24H Laboratory Tests 2 10/17/20 04:47: Immature Granulocyte % (Auto) 5.8H, Neutrophils (%) (Auto) 84.3H, Lymphocytes (%) (Auto) 3.0L, Monocytes (%) (Auto) 6.7, Eosinophils (%) (Auto) 0.0, Basophils (%) (Auto) 0.2, Neutrophils # (Auto) 25.0H, Lymphocytes # (Auto) 0.9L, Monocytes # (Auto) 2.0H, Eosinophils # (Auto) 0.0, Basophils # (Auto) 0.1, Nucleated Red Blood Cells % (auto) 0.0, Anion Gap 9, Glomerular Filtration Rate > 60.0, Calcium Level 8.9, Total Bilirubin 1.0, Aspartate Amino Transf (AST/SGOT) 6L, Alanine Aminotransferase (ALT/SGPT) 14, Alkaline Phosphatase 98, C-Reactive Protein, Quantitative 17.90H, Total Protein 5.9L, Albumin 2.6L, Albumin/Globulin Ratio 0.8 10/17/20 04:48: POC Glucose (Misc Panel) 111H, POC Sodium (Misc Panel) 129L, POC Potassium (Misc Panel) 3.7, POC Chloride (Misc Panel) 93L, POC Total CO2 (Misc Panel) 24.0, POC Blood Urea Nitrogen (Misc Panel 11, POC Ionized Calcium (Misc Panel) 4.6, POC Creatinine (Misc Panel) 1.0, POC Hematocrit (Misc Panel) 35.0L 10/17/20 06:46: Coronavirus (COVID-19)(PCR) NEGATIVE, Influenza Type A (RT-PCR) NEGATIVE, Influenza Type B (RT-PCR) NEGATIVE, Respiratory Syncytial Virus (PCR) NEGATIVE 10/17/20 13:23: Lactic Acid Level 2.0 CBC/BMP Laboratory Tests 10/17/20 04:47 Microbiology Microbiology 10/17/20 Gram Stain, Received Pending 10/17/20 Wound Culture, Received Pending 10/17/20 Anaerobic Culture, Received Pending 10/17/20 Blood Culture, Received Pending 10/17/20 Blood Culture, Received Pending Assessment/Plan Mr. 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 Patient will be put on broad spectrum antibiotics, imipenem, ceftaroline, and clindamycin. General surgery was consulted, Dr. Tyler took patient down to the OR. Plan / VTE VTE Prophylaxis Ordered?: Yes Plan Plan 1. Lola's gangrene of right gluteus -Imipenem, ceftaroline, and clindamycin -General surgery consulted, recommendations appreciated -Dr. Tyler took the patient to the OR today -Pending wound and anaerobic cultures -Pending blood cultures 2. COPD -Not in exacerbation -Continue albuterol as needed -Continue on LAMA and ICH 3. Hypertension -Blood pressure elevated -Continue amlodipine and lisinopril 4. DVT ppx -SCD and TEDs Disposition: Pending clinical improvement and culture results. TIERNEY PASTOR DO October 17, 2020 18:40
[2020-10-17 19:00] VITALS: O2SAT 93
[2020-10-17 19:08] VITALS: BP 109/58
[2020-10-17 20:00] VITALS: BP 134/63; O2SAT 93
[2020-10-17 21:00] VITALS: O2SAT 93
[2020-10-17 22:00] VITALS: O2SAT 92
[2020-10-17 23:00] VITALS: O2SAT 91
[2020-10-18] VITALS (9 sets, daily range): BP systolic 118–153; BP diastolic 57–105; O2SAT 90–96
[2020-10-18] MEDS: IMIPENEM/CILASTATIN 1,000 MG in NS 250 ML IV SCH ×4 (00:20→23:45)
[2020-10-18] MEDS: CEFTAROLINE FOSAMIL 600 MG in D5W MINI-BAG PLUS 50 ML IV SCH ×2 (01:30→12:23)
[2020-10-18] MEDS: CLINDAMYCIN 600 MG in IV 1 EA IV SCH ×3 (05:05→21:31)
[2020-10-18] MEDS: TIOTROPIUM INHALER/CAPSULE (SPIRIVA) INH SCH (07:16)
[2020-10-18] MEDS: FLUTICASONE HFA 110 MCG 12 GM INHALER (FLOVENT) INH SCH ×2 (07:16→19:32)
[2020-10-18 08:08] LABS: BLOOD UREA NITROGEN 9 MG/DL (7-18); CREATININE FOR GFR 0.78 MG/DL (0.70-1.30); GLOMERULAR FILTRATION RATE > 60.0 (>49); GLUCOSE, FASTING 129 MG/DL (70-100); POTASSIUM SERUM 3.6 MEQ/L (3.5-5.1); SODIUM LEVEL 133 MEQ/L (136-145)
[2020-10-18 08:09] LABS: CALCIUM LEVEL 8.7 MG/DL (8.8-10.2); CARBON DIOXIDE LEVEL 24 MEQ/L (21-32); CHLORIDE LEVEL 101 MEQ/L (98-107)
[2020-10-18 08:20] LABS: HEMATOCRIT 32.5 % (42.0-52.0); HEMOGLOBIN 10.8 g/dl (13.5-17.5); MEAN CORPUSCULAR HEMOGLOBIN 32.2 pg (27.0-33.0); MEAN CORPUSCULAR HGB CONC 33.2 g/dl (32.0-36.5); PLATELET COUNT, AUTOMATED 266 10^3/uL (150-450); RED BLOOD COUNT 3.35 10^6/uL (4.30-6.10); WHITE BLOOD COUNT 23.4 10^3/uL (4.0-10.0)
[2020-10-18] MEDS: NS 1,000 ML IV SCH ×2 (08:52→14:57)
[2020-10-18] MEDS: lisinopriL 40 MG TAB PO SCH (08:53)
--- NOTE | 2020-10-18 09:54 | ROOPDOC ---
[facility] Report Of Operation Report of Operation DATE OF PROCEDURE: 10/17/20 PREPROCEDURE DIAGNOSES: Lola's gangrene. POSTPROCEDURE DIAGNOSES: Necrotizing soft tissue infection, abscess right perineum, right perianal area. PROCEDURE: Excisional debridement, drainage of abscess right perineum, perianal area. SURGEON: Tyler Tyler MD [employer] SPECIALIST: ANESTHESIA: spinal anesthesia. ESTIMATED BLOOD LOSS: Approximately 20 mL. COMPLICATIONS: none. REMARKS: 65 M with 3 day history of swelling at the right perineum and perianal area. PROCEDURE NOTE: intact skin, reddened skin, typical foul smelling brackish, dishwater type fluid coming out from within soft tissue, necrosed, liquefied soft tisse with necrotic element, only at the level of the superficial subcutaneous tissue and above fascia, tunica vaginalis extension at the perineum. 2 inch vaginal packing placed. . DESCRIPTION OF PROCEDURE: Patient received meropenem as well as Ceftraroline in the emergency room. He was brought to the operating room. Spinal anesthesia was started. He was subsequently transferred to the procedure table on a prone jackknife position. His buttocks were taped apart. His pressure points were padded. Sequential compression devices placed on both lower extremities were DVT prophylaxis.We paused for a surgical timeout using both pre-incision safety checklist to verify correct patient, procedure site and additional clinical information prior to beginning the procedure Patient has an extensive area of erythema and induration and compressing the right perianal area extending anteriorly to the perineum to the base of the sc rotum but does not seem to be involving the scrotum itself. It also extends posteriorly to the right buttocks. There is roughly about 4 or 5 cm rim of subcutaneous induration at the middle of it. There is no active drainage nor any skin necrosis or breakdown that is apparent. The skin and subcutaneous tissue was liberally infiltrated with a mixture of 1% lidocaine and 1/4% Marcaine at the area of the most subcutaneous induration which is roughly about 4 cm away from the lateral side of the anal verge. An o blique incision was then started. The subcutaneous tissue was thickened as expected and we got into this mushy, liquefied area where we started having this brackish drainage consistent with necrotizing soft tissue infection. There was no Grosse large cavity itself was just tracts of liquefied subcutaneous tissue. The skin incision was enlarged taking some of the skin and subcutaneous tissue for adequate visualization. This seems to track easily anteriorly towards the base of the scrotum and perineal body but only at the level of the subcutaneous tissue and not involving the tunica vaginalis or the fascia and developing that side. Is also seems to extend laterally and posteriorly but there were more purulent drainage at this area than the typical brackish watery drainage. The visibly necrotic and liquefied soft tissue was debrided with knife and Bovie cautery. The questionable areas were left. In the and roughly about a 6 x 3 cm opening with about cavity about 10 x 5 cm were left. I packed this with 2 inch vaginal packing more for hemostasis. A placed the remaining lidocaine and Marcaine mixture to help with pain control. Bulky gauze dressing and ABD pads then placed to catch the drainage and the postoperative underwear was placed on things in place. Patient remained stable throughout the procedure. He was awakened and transferred to the stretcher and brought to recovery room in stable condition. TYLER TYLER MD October 18, 2020 09:54
[2020-10-18] MEDS: SUCRALFATE SUSP 1GM/10ML UD PO SCH ×3 (13:38→21:31)
[2020-10-18] MEDS: PANTOPRAZOLE 40MG TAB (PROTONIX) PO SCH (13:38)
[2020-10-18] MEDS: PERCOCET 5MG/325MG TAB PO PRN ×2 (13:39→21:37)
--- NOTE | 2020-10-18 14:39 | IPNPDOC ---
Text Note Date of Service The patient was seen on 10/18/20. NOTE General Surgery Dr Tyler. The pt is a 65 yo amle S/P I/D abscess right perineum, right perianal area 10/17/[address] Tyler. The patient states pain in the area is improved today. He is resting comfortably in bed. Tmax 100.5 VSS General. Awake and alert, resting comfortably in bed. Dressing intact WBC 23.4, decreased compared with 10/17 Culture 2 negative for 24 hours. Wound culture pending. Assessment/plan S/P I/D abscess right perineum, right perianal area 10/17/[address] Tyler. The patient reports improvement in pain. Wound culture is pending. Dressing is intact, plan to leave current dressing intact until tomorrow when Dr. Tyler will reexamine the area. IV antibiotics as per hospitalist IVF 100ml/hr Continue to monitor. VS,Fishbone, I+O VS, Fishbone, I+O Laboratory Tests 10/18/20 04:35 10/18/20 04:40 Vital Signs Date Time Temp Pulse Resp B/P (MAP) Pulse Ox O2 Delivery O2 Flow Rate FiO2 10/18/20 13:39 17 10/18/20 08:53 83 146/80 10/18/20 08:00 96.9 95 Nasal Cannula 2.0 I&O- Last 24 Hours up to 6 AM 10/18/20 06:00 Intake Total 3725 ml Output Total 1045 ml Balance 2680 ml Shelli Thomas October 18, 2020 14:39
--- NOTE | 2020-10-18 17:49 | IPNPDOC ---
Subjective Date Seen The patient was seen on 10/18/20. Subjective Chief Complaint/HPI Mr. 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 Patient went to the OR for debridement on 10/17/2020. This morning, he denies any chest pain or dyspnea. He has some dyspepsia, will start on PPI and Carafate. Objective Physical Examination General Exam: Positive: Alert, Cooperative Eye Exam: Positive: EOMI; Negative: Sclera icteric ENT Exam: Positive: Atraumatic Neck Exam: Positive: Supple Chest Exam: Positive: Clear to auscultation Heart Exam: Positive: Rate Normal, Regular Rhythm Abdomen Exam: Positive: Normal bowel sounds, Soft; Negative: Tenderness Skin Exam: Positive: Rash (Right gluteal erythema, swelling, tenderness) Neuro Exam: Positive: Normal Speech Psych Exam: Positive: Mental status NL, Mood NL Assessment /Plan Assessment Mr. 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 Patient will be put on broad spectrum antibiotics, imipenem, ceftaroline, and clindamycin. Imipenem for gram positive, gram negative, anaerobes, and pseudomonas. Ceftaroline for the addition coverage for MRSA. Clindamycin for its antitoxin and effects against toxin-elaborating strains of streptococci and staphylococci. General surgery was consulted, Dr. Tyler took patient down to the OR for debridement on 10/17/2020. Plan/VTE VTE Prophylaxis Ordered?: Yes Plan 1. Lola's gangrene of right gluteus -Imipenem, ceftaroline, and clindamycin -General surgery consulted, recommendations appreciated -Dr. Tyler took the patient to the OR for debridement on 10/17/20 -Pending wound and anaerobic cultures -Pending blood cultures 2. COPD -Not in exacerbation -Continue albuterol as needed -Continue on LAMA and ICH 3. Hypertension -Blood pressure elevated -Continue amlodipine and lisinopril 4. GERD/dyspepsia -Started PPI and Carafate 5. DVT ppx -SCD and TEDs Disposition: Pending clinical improvement and culture results. Will continue following CRP VS, I&O, 24H, Fishbone Vital Signs/I&O Vital Signs Date Time Temp Pulse Resp B/P (MAP) Pulse Ox O2 Delivery O2 Flow Rate FiO2 10/18/20 16:00 97.6 71 18 121/58 (79) 96 Nasal Cannula 2.0 I&O- Last 24 Hours up to 6 AM 10/18/20 06:00 Intake Total 3725 ml Output Total 1045 ml Balance 2680 ml Laboratory Data 24H LABS Laboratory Tests 2 10/18/20 04:35: Nucleated Red Blood Cells % (auto) 0.0 10/18/20 04:40: Anion Gap 8, Glomerular Filtration Rate > 60.0, Calcium Level 8.7L, C-Reactive Protein, Quantitative 24.10H 10/18/20 13:46: Lab Scanned Report Miscellaneous Lab CBC/BMP Laboratory Tests 10/18/20 04:35 10/18/20 04:40 Microbiology Microbiology 10/17/20 Gram Stain - Final, Resulted 10/17/20 Wound Culture, Resulted Pending 10/17/20 Anaerobic Culture, Resulted Pending 10/17/20 Blood Culture - Preliminary, Resulted No growth after 24 hours . All specim... 10/17/20 Blood Culture - Preliminary, Resulted No growth after 24 hours . All specim... TIERNEY PASTOR DO October 18, 2020 17:49
[2020-10-19] VITALS (11 sets, daily range): BP systolic 124–190; BP diastolic 58–90
[2020-10-19] MEDS: CEFTAROLINE FOSAMIL 600 MG in D5W MINI-BAG PLUS 50 ML IV SCH ×2 (02:32→15:42)
[2020-10-19] MEDS: NS 1,000 ML IV SCH ×3 (02:32→20:25)
[2020-10-19] MEDS: CLINDAMYCIN 600 MG in IV 1 EA IV SCH ×2 (04:04→12:08)
[2020-10-19 05:43] LABS: HEMATOCRIT 31.1 % (42.0-52.0); HEMOGLOBIN 10.1 g/dl (13.5-17.5); MEAN CORPUSCULAR HEMOGLOBIN 31.3 pg (27.0-33.0); MEAN CORPUSCULAR HGB CONC 32.5 g/dl (32.0-36.5); MEAN CORPUSCULAR VOLUME 96.3 fl (80.0-96.0); PLATELET COUNT, AUTOMATED 298 10^3/uL (150-450); RED BLOOD COUNT 3.23 10^6/uL (4.30-6.10)
[2020-10-19 06:10] LABS: BLOOD UREA NITROGEN 5 MG/DL (7-18); CARBON DIOXIDE LEVEL 28 MEQ/L (21-32); CHLORIDE LEVEL 103 MEQ/L (98-107); CREATININE FOR GFR 0.64 MG/DL (0.70-1.30); GLOMERULAR FILTRATION RATE > 60.0 (>49); GLUCOSE, FASTING 96 MG/DL (70-100); POTASSIUM SERUM 3.3 MEQ/L (3.5-5.1); SODIUM LEVEL 135 MEQ/L (136-145)
[2020-10-19] MEDS: SUCRALFATE SUSP 1GM/10ML UD PO SCH ×4 (07:30→20:25)
[2020-10-19] MEDS: TIOTROPIUM INHALER/CAPSULE (SPIRIVA) INH SCH (07:42)
[2020-10-19] MEDS: FLUTICASONE HFA 110 MCG 12 GM INHALER (FLOVENT) INH SCH ×2 (07:43→19:47)
--- NOTE | 2020-10-19 08:14 | IPNPDOC ---
Text Note Date of Service The patient was seen on 10/19/20. NOTE General Surgery Dr Tyler. The pt is a 65 yo male S/P I/D abscess right perineum, right perianal area 10/17/[address] Tyler. Afebrile VSS General. Awake and alert, resting comfortably in bed. Dressing is removed as per Dr Tyler, less erythema and swelling of perineal area but slightly increased erythema and swelling/firmness of the right buttock area with warmth to touch. WBC 16.0, decreased Culture 2 negative for 24 hours. Wound culture pending. Assessment/plan S/P I/D abscess right perineum, right perianal area 10/17/[address] Tyler. The patient reports improvement in pain. Has not had BM yet. Wound culture is pending. Dr Tyler examined wound this AM, plan is for additional I/D this afternoon. NPO IV antibiotics as per hospitalist IVF 100ml/hr VS,Brucebone, I+O VS, Brucebone, I+O Laboratory Tests 10/19/20 05:18 Vital Signs Date Time Temp Pulse Resp B/P (MAP) Pulse Ox O2 Delivery O2 Flow Rate FiO2 10/19/20 04:00 96.8 70 18 126/61 (82) 92 Nasal Cannula 2.0 I&O- Last 24 Hours up to 6 AM 10/19/20 06:00 Intake Total 1620 ml Output Total 1400 ml Balance 220 ml Shelli Thomas October 19, 2020 08:14
[2020-10-19] MEDS: lisinopriL 40 MG TAB PO SCH (09:00)
[2020-10-19] MEDS: IMIPENEM/CILASTATIN 1,000 MG in NS 250 ML IV SCH ×2 (09:03→17:52)
[2020-10-19] MEDS: PANTOPRAZOLE 40MG TAB (PROTONIX) PO SCH (09:04)
[2020-10-19] MEDS ORDERED: LIDOCAINE 2% 100MG/5ML SDV (FOR ANES.) As Ordered ONE (12:49)
[2020-10-19] MEDS ORDERED: propofoL 200 MG/20 ML VIAL As Ordered ONE (12:49)
[2020-10-19] MEDS ORDERED: MIDAZOLAM INJ 2MG/2ML VIAL (J2250 PER 1MG) As Ordered ONE (12:50)
[2020-10-19] MEDS ORDERED: fentaNYL 100 MCG/2 ML INJECTION (J3010) As Ordered ONE ×2 (12:50→13:36)
[2020-10-19] MEDS ORDERED: ROCURONIUM BROMIDE 50 MG/5 ML VIAL As Ordered ONE (13:35)
[2020-10-19] MEDS ORDERED: ONDANSETRON 4MG/2ML VIAL As Ordered ONE (14:17)
[2020-10-19] MEDS ORDERED: SUGAMMADEX SODIUM 500 MG/5 ML VIAL (BRIDION) As Ordered ONE (14:17)
[2020-10-19] MEDS ORDERED: oxyCODONE 5MG TAB PO PRN (14:55)
[2020-10-19] MEDS ORDERED: LR 1,000 ML IV SCH (14:55)
[2020-10-19] MEDS ORDERED: ONDANSETRON 4MG/2ML VIAL IV PRN (14:55)
[2020-10-19] MEDS ORDERED: fentaNYL 100 MCG/2 ML INJECTION (J3010) IV PRN (14:55)
[2020-10-19] MEDS ORDERED: VANCOMYCIN HCL 1,000 MG, VIAL MATE ADAPTER 1 EACH in NS 250 ML IV ONE (18:00)
[2020-10-19] MEDS ORDERED: hydrALAZINE 20MG/ML 1ML VIAL (J0360 PER 20MG) IV STA (18:39)
--- NOTE | 2020-10-19 18:44 | IPNPDOC ---
Date Seen The patient was seen on 10/19/20. Progress Note SUBJECTIVE: 65-year-old male with history of hypertension and COPD presented with right gluteal pain, swelling, tenderness, diagnosed with Flonase gangrene. Patient was febrile with leukocytosis with CT findings of emphysema. Concern for 40s gangrene. Gen. surgery was consulted, status post incision and drainage by Dr. Medina on 10/17/20. Pending repeat incision and drainage on . Patient was seen examined at bedside this morning. He is afebrile. Temperature 97.9. States pain is significant when palpating. OBJECTIVE PHYSICAL EXAMINATION: VITAL SIGNS: please see below General: NAD, comfortable HEENT: PERRLA, EOMI, sclerae clear Neck: supple, normal ROM, no JVD Respiratory: lungs CTAB, no wheeze, no rales, no crackles CVS: RRR, normal S1, S2, no murmurs Abdo: soft, no masses, no hepatosplenomegaly, BS+, no rebound tenderness Skin: R buttock area of fluctuance, erythema, swelling Extremities: no edema, pulses 2+ MSK: no joint deformities, normal ROM Neuro: no focal neuro deficits, moving all 4 extremities, CN2-12 intact. Strength 5/5 in all 4 extremities. No nystagmus. Psych: calm, cooperative, AAO x 3 LABORATORY DATA, IMAGING STUDIES, MICROBIOLOGY: Please see below. DVT prophylaxis ordered?: TEDs. SCDs. PROBLEMS: 1. Lola's gangrene of right gluteus -General surgery consulted, recommendations appreciated -Dr. Tyler took the patient to the OR for debridement on 10/17/20, 10/19/20 -Pending wound and anaerobic cultures - ID consulted, d/w Dr. Montiel. -Prelim blood cultures negative at 48 hours. 2. COPD -Not in exacerbation -Continue albuterol as needed -Continue on LAMA and ICH 3. Hypertension -Blood pressure elevated -Continue amlodipine and lisinopril - given 10 mg IV hydralazine for elevated BP, likely 2/2 pain 4. GERD/dyspepsia -Started PPI and Carafate 5. DVT ppx -SCD and TEDs VS, I&O, 24H, Fishbone Vital Signs/I&O Vital Signs Date Time Temp Pulse Resp B/P (MAP) Pulse Ox O2 Delivery O2 Flow Rate FiO2 10/19/20 17:45 98.0 87 20 170/78 (108) 10/19/20 15:45 95 Room Air 10/19/20 14:57 10.0 I&O- Last 24 Hours up to 6 AM 10/19/20 06:00 Intake Total 1620 ml Output Total 1400 ml Balance 220 ml Laboratory Data 24H LABS Laboratory Tests 2 10/19/20 05:18: Nucleated Red Blood Cells % (auto) 0.0, Anion Gap 4L, Glomerular Filtration Rate > 60.0, Calcium Level 8.0L, C-Reactive Protein, Quantitative 14.30H CBC/BMP Laboratory Tests 10/19/20 05:18 Microbiology Microbiology 10/17/20 Gram Stain - Final, Resulted 10/17/20 Wound Culture - Final, Resulted 10/17/20 Anaerobic Culture, Resulted Pending 10/17/20 Blood Culture - Preliminary, Resulted No Growth after 48 hours. All Specime... 10/17/20 Blood Culture - Preliminary, Resulted No Growth after 48 hours. All Specime... REID AVILA MD October 19, 2020 18:44
[2020-10-19] MEDS ORDERED: VIAL MATE ADAPTER XX ONE ×2 (18:59→19:08)
--- NOTE | 2020-10-19 19:46 | CR.PDOC ---
General Date of Consultation: October 19, 2020 Attending Physician: Gloria Montiel MD Consultation REASON FOR CONSULTATION: Antibiotic regimen for perianal/buttock abscess HISTORY OF PRESENT ILLNESS: Saleem Dobbs is a 65 YO M with recent history of UGI bleed 2/2 peptic ulcer disease, COPD, HTN who presents with pain, swelling and discomfort in his scrotum. Patient is somewhat of a poor historian. He states that since his last hospitalization (09/18/20 - 09/24/20) he had been doing well but started getting perineal pain in the past week. He states he went on a fishing trip with his friends and noticed a painful pimple on the bottom of his scrotum/around his anus. The pimple eventually grew in size and began draining pus. In addition, he has had a bump on his R buttock that similarly became progressively inflamed. He has been unable to sit or lay down on his bottom. He has gone to the OR with Dr. Tyler on 10/18 and 10/19 for incision and drainage. He is on day 3 of IV Imipenem, Ceftaroline and Clindamycin. ID was called for consultation regarding antibiotic choice. Today, Saleem is seen and examined at the bedside shortly after his second debridement. He denies any pain. He states he is currently feeling well. ALLERGIES: Please see below. HOME MEDICATIONS: Please see below. PAST MEDICAL HISTORY: 1. HTN 2. COPD 3. Recent diagnosis UGI bleed 2/2 bleeding peptic ulcer PAST SURGICAL HISTORY: 1. IR selective celiac arteriogram 09/21/20, demonstrating small gastroduodenal artery without pseudoaneurysm/extravasation. Embolization for duodenal bleeding ulcer 2. Umbilical hernia repair 3. Bilateral inguinal hernia repair FAMILY HISTORY: Reviewed and noncontributory SOCIAL HISTORY: States he quit drinking 1 month ago but prior to that had heavy alcohol use (4-5 beers/day) Smokes 1 pack every 2 days for 30 years Denies illicit drugs other than cannabis REVIEW OF SYSTEMS: CONSTITUTIONAL: Denies fevers, chills, night sweats, weight loss HEENT: Denies vision changes, hearing problems CARDIOVASCULAR: Denies chest pain, palpitations, lower extremity swelling RESPIRATORY: Reports intermittent cough nonproductive of sputum, denies SOB GENITOURINARY: Denies dysuria symptoms. Reports pain in his scrotum MUSCULOSKELETAL: Denies muscle pain, difficulty ambulating GASTROINTESTINAL: Denies nausea/vomiting, reports constipation SKIN: Reports "pimple" on bottom of scrotum and area of swelling on R buttocks NEUROLOGICAL: Denies loss of sensation, no vision loss PSYCHIATRIC: Denies suicidality, reports normal moods ENDOCRINE: Denies frequent urination, hot/cold intolerance HEMATOLOGIC/LYMPHATIC: Denies easy bruising ALLERGIC/IMMUNOLOGIC: Denies allergy-like symptoms PHYSICAL EXAMINATION: VITAL SIGNS: Please see below. GENERAL APPEARANCE: Laying flat in bed, appears stated age, pleasant, conversant in full sentences HEENT: normocephalic/atraumatic, EOMI, PERRL, moist mucus membranes RESPIRATORY: Decreased breath sounds at bases bilaterally, otherwise no adventitious breath sounds appreciated CARDIOVASCULAR: RRR, no murmurs/rubs/gallops, normal S1/S2 ABDOMEN: protuberant, soft, nontender to palpation, +BS, no masses/organomegaly, no obvious hernias SKIN: Perianal and R buttock wounds were examined. Both are packed with gauze and are not oozing. There appear to be 2 incisions. EXTREMITIES: moves all extremities well, no clubbing/cyanosis/edema NEUROLOGICAL: no obvious focal deficits PSYCHIATRIC: AAOx3, normal mood/affect LABORATORY DATA: Please see below. IMAGING: CT ABD/PELVIS 10/17/20: IMPRESSION: 1. Extensive right perineal subcutaneous edema and emphysema with no walled-off collection/abscess suspicious for Jeffry's gangrene. 2. Nonspecific enlarged and heterogeneous prostate gland indenting the posterior wall of the urinary bladder. Correlate with clinical history, physical exam and PSA level. 3. Suggestion of mild urinary bladder wall thickening which could be attributed to under distension. Underlying cystitis cannot be excluded. Correlate with clinical history and urinalysis. 4. 3.6 cm right and 3.3 cm left adrenal gland mass is, indeterminate on this exam, grossly unchanged since September 12, 2020. Non-emergent adrenal CT is recommended. ([facility] 5. Fatty infiltration of the liver. 6. 1.5 cm right upper renal pole dense nodule. Recommend non-emergent MRI without and with contrast or non-emergent CT without and with contrast. MRI is preferred for masses under 1.5 cm. 7. 4 mm left lung base nodule minimally more prominent than the prior exam. Follow-up in 6 months is suggested. ASSESSMENT: This is a 65 YO M with hx HTN, recent UGI bleed 2/2 PUD, COPD who presented with pain and swelling in the perineum and R buttocks found to have perianal and R buttock abscess s/p incision and drainage x 2. PLAN: 1. Perianal and R buttock abscesses: patient has no obvious signs of septic/toxic shock to suggest clincial presentation of jeffry gangrene at this time. -General surgery I&D x 2 in OR -Wound care/dressing changes per Surgery -Ceftaroline and Clindamycin stopped -Continue Imipenem for GN/GP coverage -Vancomycin ordered for empiric MRSA coverage -MRSA screen pending -Will narrow antibiotic selection as cultures return Vital Signs/I&O Vital Signs Date Time Temp Pulse Resp B/P (MAP) Pulse Ox O2 Delivery O2 Flow Rate FiO2 10/19/20 18:50 180/78 10/19/20 18:43 98.0 84 20 96 Room Air 10/19/20 14:57 10.0 I&O- Last 24 Hours up to 6 AM 10/19/20 06:00 Intake Total 1620 ml Output Total 1400 ml Balance 220 ml Laboratory Data Labs 24H Laboratory Tests 2 10/19/20 05:18: Nucleated Red Blood Cells % (auto) 0.0, Anion Gap 4L, Glomerular Filtration Rate > 60.0, Calcium Level 8.0L, C-Reactive Protein, Quantitative 14.30H CBC/BMP Laboratory Tests 10/19/20 05:18 Microbiology Microbiology 10/17/20 Gram Stain - Final, Resulted 10/17/20 Wound Culture - Final, Resulted 10/17/20 Anaerobic Culture, Resulted Pending 10/17/20 Blood Culture - Preliminary, Resulted No Growth after 48 hours. All Specime... 10/17/20 Blood Culture - Preliminary, Resulted No Growth after 48 hours. All Specime... Allergies Coded Allergies: No Known Allergies (Verified , 02/13/18) Home Medications Scheduled Amlodipine Besylate (Amlodipine Besylate) 10 Mg Tab, 10 MG PO DAILY, (Reported) Ergocalciferol (Vitamin D2) (Vitamin D2) 50,000 Units Cap, 50,000 UNITS PO 1XWK, (Reported) SATURDAYS Fluticasone Furoate (Arnuity Ellipta) 100 Mcg Blst.w.dev, 1 PUFF INH DAILY, (Reported) Lisinopril (Lisinopril) 40 Mg Tab, 40 MG PO DAILY, (Reported) Pantoprazole Sodium (Pantoprazole Sodium) 40 Mg Tablet.dr, 40 MG PO BID, (Reported) Tiotropium Worth Monohydrate (Spiriva) 5 Inhalation/Inhaler Powd, 1 INHALATION INH DAILY, (Reported) Scheduled PRN Albuterol Sulfate (Proair Hfa) 108 Mcg/Act Aer, 2 PUFFS INH Q4H PRN for WHEEZING, (Reported) Meloxicam (Meloxicam) 15 Mg Tablet, 15 MG PO DAILY PRN for PAIN, (Reported) TAKEN WITH FOOD Polyethylene Glycol 3350 (Polyethylene Glycol 3350) 510 Gm Powder, 17 GM PO DAILY PRN for CONSTIPATION, (Reported) Sennosides (Senna) 8.6 Mg Tablet, 17.2 MG PO QHS PRN for CONSTIPATION, (Reported) Sildenafil Citrate (Sildenafil Citrate) 50 Mg Tablet, 50 MG PO asdirected PRN for ERECTILE DYSFUNCTION, (Reported) GME ATTESTATION GME ATTESTATION My faculty preceptor for this patient encounter was physically present during the encounter and was fully available. All aspects of the patient interview, examination, medical decision making process, and medical care plan development were reviewed and approved by the faculty preceptor. The faculty preceptor is aware and concurs with the plan as stated in the body of this note and will attest to such by his/her cosignature. RICHAR PUGH MD October 19, 2020 19:46
[2020-10-19] MEDS: VANCOMYCIN HCL 1,000 MG, VIAL MATE ADAPTER 1 EACH in NS 250 ML IV SCH (21:43)
[2020-10-20] MEDS: IMIPENEM/CILASTATIN 1,000 MG in NS 250 ML IV SCH ×3 (00:32→16:46)
[2020-10-20 04:00] VITALS: BP 160/90
[2020-10-20 05:16] LABS: HEMATOCRIT 33.5 % (42.0-52.0); MEAN CORPUSCULAR HEMOGLOBIN 30.9 pg (27.0-33.0); MEAN CORPUSCULAR HGB CONC 32.8 g/dl (32.0-36.5); MEAN CORPUSCULAR VOLUME 94.1 fl (80.0-96.0); PLATELET COUNT, AUTOMATED 350 10^3/uL (150-450); RED BLOOD COUNT 3.56 10^6/uL (4.30-6.10); WHITE BLOOD COUNT 12.2 10^3/uL (4.0-10.0)
[2020-10-20 05:31] LABS: BLOOD UREA NITROGEN 3 MG/DL (7-18); CARBON DIOXIDE LEVEL 31 MEQ/L (21-32); CHLORIDE LEVEL 101 MEQ/L (98-107); CREATININE FOR GFR 0.62 MG/DL (0.70-1.30); GLOMERULAR FILTRATION RATE > 60.0 (>49); GLUCOSE, FASTING 103 MG/DL (70-100); POTASSIUM SERUM 3.5 MEQ/L (3.5-5.1); SODIUM LEVEL 136 MEQ/L (136-145)
[2020-10-20] MEDS: VANCOMYCIN HCL 1,000 MG, VIAL MATE ADAPTER 1 EACH in NS 250 ML IV SCH ×3 (06:42→22:26)
[2020-10-20] MEDS: SUCRALFATE SUSP 1GM/10ML UD PO SCH ×4 (07:54→20:52)
[2020-10-20] MEDS: lisinopriL 40 MG TAB PO SCH (07:54)
[2020-10-20] MEDS: PANTOPRAZOLE 40MG TAB (PROTONIX) PO SCH (07:54)
[2020-10-20 08:00] VITALS: BP 168/82
[2020-10-20] MEDS: TIOTROPIUM INHALER/CAPSULE (SPIRIVA) INH SCH (08:00)
[2020-10-20] MEDS: FLUTICASONE HFA 110 MCG 12 GM INHALER (FLOVENT) INH SCH ×2 (08:00→20:00)
[2020-10-20] MEDS: NS 1,000 ML IV SCH ×2 (10:54→16:30)
--- NOTE | 2020-10-20 11:06 | IPNPDOC ---
Text Note Date of Service The patient was seen on 10/20/20. NOTE General Surgery Dr Tyler. The pt is a 65 yo male S/P I/D abscess right perineum, right perianal area 10/17/[address] Tyler, additional I/D as per Dr Tyler 10/19/20. Pt states pain is improving, sitting up and eating this AM. Afebrile VSS General. Awake and alert, resting comfortably in bed. Dressing is removed as per Dr Tyler, less erythema and swelling of perineal area but slightly increased erythema and swelling/firmness of the right buttock area with warmth to touch. WBC 12.2, decreased CRP 12.4, down trending. Assessment/plan S/P I/D abscess right perineum, right perianal area 10/17/20, additional I/D 10/19/[address] Tyler. The patient reports improvement in pain. Has not had BM yet. WBC and CRP both trending down. Dr Tyler examined wound this AM, plan is to leave the current dressing in place until tomorrow and then reexamine the patient's wounds. IV antibiotics as per hospitalist IVF 100ml/hr Continue to monitor. VS,Fishbone, I+O VS, Fishbone, I+O Laboratory Tests 10/20/20 04:34 Vital Signs Date Time Temp Pulse Resp B/P (MAP) Pulse Ox O2 Delivery O2 Flow Rate FiO2 10/20/20 08:00 97.8 78 20 168/82 (110) 95 Room Air 10/19/20 14:57 10.0 I&O- Last 24 Hours up to 6 AM 10/20/20 06:00 Intake Total 3260 ml Output Total 6650 ml Balance -3390 ml Shelli Thomas October 20, 2020 11:06
[2020-10-20 12:00] VITALS: BP 155/88
[2020-10-20 16:00] VITALS: BP 139/79
[2020-10-20 20:00] VITALS: BP 174/68
--- NOTE | 2020-10-20 21:44 | IPNPDOC ---
Date Seen The patient was seen on 10/20/20. Progress Note SUBJECTIVE: 65-year-old male with history of hypertension and COPD presented with right gluteal pain, swelling, tenderness, diagnosed with Flonase gangrene. Patient was febrile with leukocytosis with CT findings of emphysema. Concern for 40s gangrene. Gen. surgery was consulted, status post incision and drainage by Dr. Medina on 10/17/20. Pending repeat incision and drainage on . Patient was seen examined at bedside this morning. He is afebrile. Temperature 97.9. States pain is significant when palpating. OBJECTIVE PHYSICAL EXAMINATION: VITAL SIGNS: please see below General: NAD, comfortable HEENT: PERRLA, EOMI, sclerae clear Neck: supple, normal ROM, no JVD Respiratory: lungs CTAB, no wheeze, no rales, no crackles CVS: RRR, normal S1, S2, no murmurs Abdo: soft, no masses, no hepatosplenomegaly, BS+, no rebound tenderness Skin: R buttock area of fluctuance, erythema, swelling Extremities: no edema, pulses 2+ MSK: no joint deformities, normal ROM Neuro: no focal neuro deficits, moving all 4 extremities, CN2-12 intact. Strength 5/5 in all 4 extremities. No nystagmus. Psych: calm, cooperative, AAO x 3 LABORATORY DATA, IMAGING STUDIES, MICROBIOLOGY: Please see below. DVT prophylaxis ordered?: TEDs. SCDs. PROBLEMS: 1. Lola's gangrene of right gluteus -General surgery consulted, recommendations appreciated -Dr. Tyler took the patient to the OR for debridement on 10/17/20, 10/19/20 - wound for reexam and repacking on 10/21/20 -Pending wound and anaerobic cultures - ID consulted, d/w Dr. Montiel. -Prelim blood cultures negative at 48 hours. 2. COPD -Not in exacerbation -Continue albuterol as needed -Continue on LAMA and ICH 3. Hypertension -Blood pressure elevated -Continue amlodipine and lisinopril - given 10 mg IV hydralazine for elevated BP, likely 2/2 pain 4. GERD/dyspepsia -Started PPI and Carafate 5. DVT ppx -SCD and TEDs VS, I&O, 24H, Fishbone Vital Signs/I&O Vital Signs Date Time Temp Pulse Resp B/P (MAP) Pulse Ox O2 Delivery O2 Flow Rate FiO2 10/20/20 20:00 98.0 56 20 96 Room Air 10/20/20 16:00 139/79 (99) 10/19/20 14:57 10.0 I&O- Last 24 Hours up to 6 AM 10/20/20 06:00 Intake Total 3260 ml Output Total 6650 ml Balance -3390 ml Laboratory Data 24H LABS Laboratory Tests 2 10/20/20 04:34: Nucleated Red Blood Cells % (auto) 0.0, Anion Gap 4L, Glomerular Filtration Rate > 60.0, Calcium Level 9.0, C-Reactive Protein, Quantitative 12.40H 10/20/20 06:00: Methicillin-Resist S.aureus DNA PCR NOT DETECTED 10/20/20 21:01: Vancomycin Level Trough 15.1 CBC/BMP Laboratory Tests 10/20/20 04:34 Microbiology Microbiology 10/17/20 Gram Stain - Final, Resulted 10/17/20 Wound Culture - Final, Resulted 10/17/20 Anaerobic Culture, Resulted Pending 10/17/20 Blood Culture - Preliminary, Resulted No Growth after 72 hours. All specime... 10/17/20 Blood Culture - Preliminary, Resulted No Growth after 72 hours. All specime... REID AVILA MD October 20, 2020 21:44
[2020-10-21] VITALS: BP 190/92
[2020-10-21] MEDS: hydroCHLOROthiazide 12.5 MG CAPSULE PO SCH ×2 (00:36→09:00)
[2020-10-21] MEDS: IMIPENEM/CILASTATIN 1,000 MG in NS 250 ML IV SCH ×2 (00:36→09:01)
[2020-10-21 04:00] VITALS: BP 161/74
[2020-10-21 05:07] LABS: HEMATOCRIT 37.8 % (42.0-52.0); HEMOGLOBIN 12.7 g/dl (13.5-17.5); MEAN CORPUSCULAR HEMOGLOBIN 31.1 pg (27.0-33.0); MEAN CORPUSCULAR HGB CONC 33.6 g/dl (32.0-36.5); MEAN CORPUSCULAR VOLUME 92.4 fl (80.0-96.0); PLATELET COUNT, AUTOMATED 413 10^3/uL (150-450); RED BLOOD COUNT 4.09 10^6/uL (4.30-6.10); WHITE BLOOD COUNT 10.4 10^3/uL (4.0-10.0)
[2020-10-21] MEDS: NS 1,000 ML IV SCH (05:12)
[2020-10-21] MEDS: VANCOMYCIN HCL 1,000 MG, VIAL MATE ADAPTER 1 EACH in NS 250 ML IV SCH ×2 (05:12→13:59)
[2020-10-21 05:29] LABS: BLOOD UREA NITROGEN 3 MG/DL (7-18); C REACTIVE PROTEIN QUANTITATIV 6.84 MG/DL (0.00-0.30); CALCIUM LEVEL 9.4 MG/DL (8.8-10.2); CARBON DIOXIDE LEVEL 29 MEQ/L (21-32); CHLORIDE LEVEL 98 MEQ/L (98-107); CREATININE FOR GFR 0.58 MG/DL (0.70-1.30); GLOMERULAR FILTRATION RATE > 60.0 (>49); GLUCOSE, FASTING 105 MG/DL (70-100); SODIUM LEVEL 133 MEQ/L (136-145)
[2020-10-21] MEDS: TIOTROPIUM INHALER/CAPSULE (SPIRIVA) INH SCH (07:53)
[2020-10-21] MEDS: FLUTICASONE HFA 110 MCG 12 GM INHALER (FLOVENT) INH SCH ×2 (07:55→20:30)
[2020-10-21] MEDS ORDERED: POTASSIUM CHLORIDE 10 MEQ SR TABLET PO ONE ×2 (08:00→10:00)
[2020-10-21 08:26] LABS: MAGNESIUM LEVEL 1.9 MG/DL (1.8-2.4)
[2020-10-21 08:37] VITALS: BP 173/97
[2020-10-21] MEDS: lisinopriL 40 MG TAB PO SCH (09:00)
[2020-10-21] MEDS: PANTOPRAZOLE 40MG TAB (PROTONIX) PO SCH (09:00)
[2020-10-21] MEDS: SUCRALFATE SUSP 1GM/10ML UD PO SCH ×4 (09:01→21:12)
[2020-10-21 12:00] VITALS: BP 137/75
--- NOTE | 2020-10-21 12:12 | IPNPDOC ---
Date Seen The patient was seen on 10/21/20. Progress Note SUBJECTIVE: doing well this morning, was seen and examined at bedside. No acute events overnight. Dressings changes daily. denies chest pain, SOB, palpitations, n/v/d. OBJECTIVE PHYSICAL EXAMINATION: VITAL SIGNS: please see below General: NAD, comfortable HEENT: PERRLA, EOMI, sclerae clear Neck: supple, normal ROM, no JVD Respiratory: lungs CTAB, no wheeze, no rales, no crackles CVS: RRR, normal S1, S2, no murmurs Abdo: soft, no masses, no hepatosplenomegaly, BS+, no rebound tenderness Skin: R buttock area of fluctuance, erythema, swelling Extremities: no edema, pulses 2+ MSK: no joint deformities, normal ROM Neuro: no focal neuro deficits, moving all 4 extremities, CN2-12 [address]. Stre ngth 5/5 in all 4 extremities. No nystagmus. Psych: calm, cooperative, AAO x 3 LABORATORY DATA, IMAGING STUDIES, MICROBIOLOGY: Please see below. DVT prophylaxis ordered?: TEDs. SCDs. PROBLEMS: 1. Lola's gangrene of right gluteus -General surgery consulted, recommendations appreciated -Dr. Tyler took the patient to the OR for debridement on 10/17/20, 10/19/20 - wound for reexam and repacking on 10/21/20 - wound cultures negative - d/w Dr. Tyler, will plan for DC on 10/22/20. Patient has aide to help with wound packing daily - ID consulted, d/w Dr. Montiel. - stop imipenem, vancomycin. Switch to levaquin and flagyl. 10 days total therapy. -Prelim blood cultures negative at 48 hours. 2. COPD -Not in exacerbation -Continue albuterol as needed -Continue on LAMA and ICH 3. Hypertension -Blood pressure elevated -Continue amlodipine and lisinopril, HCTZ increased to 25 mg daily - hydralazine prn for BP > 160 4. GERD/dyspepsia -Started PPI and Carafate 5. DVT ppx -SCD and TEDs VS, I&O, 24H, Fishbone Vital Signs/I&O Vital Signs Date Time Temp Pulse Resp B/P (MAP) Pulse Ox O2 Delivery O2 Flow Rate FiO2 10/21/20 09:00 87 173/97 10/21/20 08:37 98.4 18 95 Room Air 10/19/20 14:57 10.0 I&O- Last 24 Hours up to 6 AM 10/21/20 06:00 Intake Total 6320 ml Output Total 8525 ml Balance -2205 ml Laboratory Data 24H LABS Laboratory Tests 2 10/20/20 21:01: Vancomycin Level Trough 15.1 10/21/20 04:51: Nucleated Red Blood Cells % (auto) 0.0, Anion Gap 6L, Glomerular Filtration Rate > 60.0, Calcium Level 9.4, Magnesium Level 1.9, C-Reactive Protein, Quantitative 6.84H CBC/BMP Laboratory Tests 10/21/20 04:51 Microbiology Microbiology 10/17/20 Gram Stain - Final, Resulted 10/17/20 Wound Culture - Final, Resulted 10/17/20 Anaerobic Culture, Resulted Pending 10/17/20 Blood Culture - Preliminary, Resulted No Growth after 72 hours. All specime... 10/17/20 Blood Culture - Preliminary, Resulted No Growth after 72 hours. All specime... REID AVILA MD October 21, 2020 12:12
[2020-10-21 15:35] LABS: BLOOD UREA NITROGEN 5 MG/DL (7-18); CARBON DIOXIDE LEVEL 26 MEQ/L (21-32); CHLORIDE LEVEL 100 MEQ/L (98-107); CREATININE FOR GFR 0.68 MG/DL (0.70-1.30); GLOMERULAR FILTRATION RATE > 60.0 (>49); GLUCOSE, FASTING 150 MG/DL (70-100); POTASSIUM SERUM 3.4 MEQ/L (3.5-5.1); SODIUM LEVEL 133 MEQ/L (136-145)
[2020-10-21 16:00] VITALS: BP 150/100
[2020-10-21] MEDS: LevoFLOXacin 750 MG TABLET PO SCH (17:02)
[2020-10-21] MEDS: metroNIDAZOLE (FLAGYL) 500MG TABLET PO SCH ×2 (17:02→21:12)
--- NOTE | 2020-10-21 17:57 | IPNPDOC ---
Text Note Date of Service The patient was seen on 10/21/20. NOTE I reexamined Mr. Dobbs's wound today. He reports improvement of the pain but still there, was asking when he can go home. He has been afebrile here and his WBC count as well as CRP is trending downwards. On examination of the wound there is still is considerable erythema VS,Fishbone, I+O VS, Fishbone, I+O Laboratory Tests 10/21/20 04:51 10/21/20 15:01 Vital Signs Date Time Temp Pulse Resp B/P (MAP) Pulse Ox O2 Delivery O2 Flow Rate FiO2 10/21/20 16:00 98.0 88 20 150/100 (117) 96 Room Air 10/19/20 14:57 10.0 I&O- Last 24 Hours up to 6 AM 10/21/20 06:00 Intake Total 6320 ml Output Total 8525 ml Balance -2205 ml MEGAN SWEENEY MD October 21, 2020 17:57
[2020-10-21] MEDS ORDERED: **hydrALAZINE** 10 MG TAB PO PRN (18:10)
[2020-10-21 20:00] VITALS: BP 135/63
[2020-10-22 04:00] VITALS: BP 162/78
[2020-10-22 04:45] LABS: HEMATOCRIT 37.4 % (42.0-52.0); HEMOGLOBIN 12.4 g/dl (13.5-17.5); MEAN CORPUSCULAR HEMOGLOBIN 31.1 pg (27.0-33.0); MEAN CORPUSCULAR HGB CONC 33.2 g/dl (32.0-36.5); MEAN CORPUSCULAR VOLUME 93.7 fl (80.0-96.0); PLATELET COUNT, AUTOMATED 472 10^3/uL (150-450); RED BLOOD COUNT 3.99 10^6/uL (4.30-6.10); WHITE BLOOD COUNT 12.3 10^3/uL (4.0-10.0)
[2020-10-22 05:00] LABS: BLOOD UREA NITROGEN 7 MG/DL (7-18); C REACTIVE PROTEIN QUANTITATIV 2.06 MG/DL (0.00-0.30); CARBON DIOXIDE LEVEL 27 MEQ/L (21-32); CHLORIDE LEVEL 98 MEQ/L (98-107); CREATININE FOR GFR 0.84 MG/DL (0.70-1.30); GLOMERULAR FILTRATION RATE > 60.0 (>49); GLUCOSE, FASTING 176 MG/DL (70-100); POTASSIUM SERUM 3.1 MEQ/L (3.5-5.1); SODIUM LEVEL 133 MEQ/L (136-145)
[2020-10-22] MEDS: LevoFLOXacin 750 MG TABLET PO SCH (05:04)
[2020-10-22] MEDS: metroNIDAZOLE (FLAGYL) 500MG TABLET PO SCH ×2 (05:04→13:00)
[2020-10-22 06:00] VITALS: BP 162/86
[2020-10-22] MEDS: FLUTICASONE HFA 110 MCG 12 GM INHALER (FLOVENT) INH SCH (07:27)
[2020-10-22] MEDS: TIOTROPIUM INHALER/CAPSULE (SPIRIVA) INH SCH (07:27)
[2020-10-22 08:00] VITALS: BP 142/83
[2020-10-22] MEDS ORDERED: POTASSIUM CHLORIDE 10 MEQ SR TABLET PO ONE ×2 (08:00→10:00)
[2020-10-22] MEDS: SUCRALFATE SUSP 1GM/10ML UD PO SCH ×2 (08:13→13:00)
[2020-10-22] MEDS: PANTOPRAZOLE 40MG TAB (PROTONIX) PO SCH (08:13)
[2020-10-22] MEDS: lisinopriL 40 MG TAB PO SCH (08:15)
[2020-10-22] MEDS ORDERED: SLF 3 ML SYR IV PRN (09:05)
--- NOTE | 2020-10-22 09:50 | IPN ---
PROGRESS NOTE DATE: 10/21/2020 SUBJECTIVE: Mr. Dobbs is anxious to go home. He stated his buttock pain has markedly improved. He does complain of severe low back pain and being very uncomfortable in the hospital bed and therefore, he wants to go home. He was seen by Dr. Tyler and the hospitalist service and the plan is to hopefully discharge him home tomorrow. OBJECTIVE: HEART: Normal S1, S2 with no murmurs. LUNGS: Clear. No wheezing, rales, or rhonchi. ABDOMEN: Soft and nontender with no hepatosplenomegaly. EXTREMITIES: No edema. SKIN: Right buttock with area of redness and tenderness that has decreased from yesterday. There is a large incision with packing and some purulence. LABORATORY DATA: White count 10.4, hemoglobin 12.7, hematocrit 37.8, platelets 413,000. His white count on admission was 29.6. CRP down to 6.84 from 24.1. MICROBIOLOGY: Culture anaerobically was negative. There are at least two or three anaerobes that are still pending identification. MEDICATIONS: Imipenem and vancomycin currently day #3. IMPRESSION AND PLAN: Right buttock gluteal abscess status post incision and drainage (I&D) doing much better. IV imipenem and vancomycin will be discontinued. He will be switched to oral Levaquin at 750 mg dose and metronidazole 500 mg p.o. q. eight hours. The patient will be given at least ten days of antibiotic upon discharge. Hopefully, he will be discharged home tomorrow with nursing referral for wound packing. The patient lives alone. He can follow-up with Dr. Tyler as an outpatient. He does not need an infectious disease follow-up.
--- NOTE | 2020-10-22 11:00 | DS.PDOC ---
Discharge Summary General Date of Admission October 17, 2020 at 10:43 Date of Discharge 10/22/20 Discharge Summary PROCEDURES PERFORMED DURING STAY: [None]. COMPLICATIONS/CHIEF COMPLAINT: Lola Gangrene & Sepsis. HISTORY OF PRESENT ILLNESS: Mr. 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 Patient was seen in the morning prior to surgery. About 3 days ago, he noticed a bump on his right gluteus. He has had this in the past. Over the three days, it had rapidly grown. It was so painful that he could not sit and had to lay on his side. He reports fever. Denies chest pain, abdominal pain, or dysuria. He came to the ED for evaluation. He had a fever of 100.8 and leukocytosis of 26.9. CT abd/pelvis demonstrated extensive right perineal subcutaneous edema and emphysema concerning for Lola's gangrene. General surgery was consulted. I came down to see the patient. Denies any worsening dyspnea or cough. His is a long time smoker and this has been chronic. He does not use oxygen at home. Otherwise, denies chest pain and was in good health prior to 3 days ago. Patient will be admitted for Lola's gangrene and he went down for surgery. HOSPITAL COURSE: 1. Lola's gangrene of right gluteus - General surgery consulted, recommendations appreciated - Dr. Tyler took the patient to the OR for debridement on 10/17/20, 10/19/20 - wound cultures negative, prelim blood cultures negative. - d/w Dr. Tyler, cleared for discharged on 10/22/20. To continue with daily wound dressings and packing. Home health services for dressing changes, and patient has an aide to assist. - ID consulted, d/w Dr. Montiel. - stop imipenem, vancomycin (3 days of therapy). - per Dr. Montiel, to DC home with Levaquin 750 mg daily and metronidazole 500 mg PO q8h for 10 days. - patient will follow up with General Surgery Dr. Tyler #. hx of COPD -Not in exacerbation -Continue albuterol as needed -Continue on LAMA and ICH #Prostate adecarcinoma - s/p bx by Dr. Cornejo on 07/28/20, davey score 3+3 - to follow up outpatient - last PSA 3.7 in 08/2020 #. Hypertension - Blood pressure elevated - Continue amlodipine and lisinopril - HCTZ stopped due to hypokalemia - added hydralazine 20 mg PO q8h #adrenal masses - R 3.6 cm. 3.3 L mass, last seen on CT 09/2020 - per radiology, recommending non emergency adrenal protocol CT as outpatient - ordered serum catecholamines, metanephrines as well as aldosterone level and renin activity - patient to f/u with PCP for final results as labs are send out - nephrology referral provided #Lung nodule - 4 mm L lung base nodule, repeat dedicated CT chest as outpatient #R upper renal pole nodule - to obtain non emergent MRI with and without contrast as outpatient Hypokalemia - replaced, repeat BMP #. GERD/dyspepsia -Started PPI and Carafate DISCHARGE MEDICATIONS: Please see below. ALLERGIES: Please see below. PHYSICAL EXAMINATION ON DISCHARGE: VITAL SIGNS: please see below General: NAD, comfortable HEENT: PERRLA, EOMI, sclerae clear Neck: supple, normal ROM, no JVD Respiratory: lungs CTAB, no wheeze, no rales, no crackles CVS: RRR, normal S1, S2, no murmurs Abdo: soft, no masses, no hepatosplenomegaly, BS+, no rebound tenderness Skin: R buttock has 2 sites communicating s/p debridement, minimal drainage, surrounding cellulitis improved, induration resolved. Extremities: no edema, pulses 2+ MSK: no joint deformities, normal ROM Neuro: no focal neuro deficits, moving all 4 extremities, CN2-12 intact. Strength 5/5 in all 4 extremities. No nystagmus. Psych: calm, cooperative, AAO x 3 LABORATORY DATA: Please see below. IMAGING: CT abdo pelvis w IV contrast (10/17/20): 1. Extensive right perineal subcutaneous edema and emphysema with no walled-off collection/abscess suspicious for Lola's gangrene. 2. Nonspecific enlarged and heterogeneous prostate gland indenting the posterior wall of the urinary bladder. Correlate with clinical history, physical exam and PSA level. 3. Suggestion of mild urinary bladder wall thickening which could be attributed to under distension. Underlying cystitis cannot be excluded. Correlate with clinical history and urinalysis. 4. 3.6 cm right and 3.3 cm left adrenal gland mass is, indeterminate on this exam, grossly unchanged since September 12, 2020. Non-emergent adrenal CT is recommended. (Reference: Ritu) 5. Fatty infiltration of the liver. 6. 1.5 cm right upper renal pole dense nodule. Recommend non-emergent MRI without and with contrast or non-emergent CT without and with contrast. MRI is preferred for masses under 1.5 cm. 7. 4 mm left lung base nodule minimally more prominent than the prior exam. Follow-up in 6 months is suggested. PROGNOSIS: good ACTIVITY: [As tolerated]. DIET:2g sodium restricted DISCHARGE PLAN: DC home with PCP and general surgery follow up. Patient to continue levaquin and metronidazole for 10 days. Daily wound dressings and packing. Home health referral. Numerous nodules found, details for follow up specified below. DISPOSITION: home with services. DISCHARGE INSTRUCTIONS: . Please follow-up with your primary care doctor within 3-5 days . Please follow-up with general surgery in 1 week. . Please taking medications as prescribed. . If you develop bleeding, chest pain, shortness of breath, seizures, nausea, fevers, or otherwise worsening of your symptoms, please call 911 or return to the nearest emergency room ITEMS TO FOLLOWUP ON ON OUTPATIENT: - ensure urology follow up, bx showing adenocarcinoma davey score 3+3. -bilateral adrenal masses, unchanged since 09/2020. Outpatient repeat CT. F/u blood work: catecholamines, metanephrines and renin/aldosterone activity. -1.5 cm R upper renal pole nodule. MRI w and wo contrast vs CT w and wo contrast as outpatient -4mm L lung base nodule, enlarged from prior. Repeat CT chest 6 months DISCHARGE CONDITION: [Stable]. TIME SPENT ON DISCHARGE: 35 minutes Vital Signs/I&Os Vital Signs Date Time Temp Pulse Resp B/P (MAP) Pulse Ox O2 Delivery O2 Flow Rate FiO2 10/22/20 08:14 94 142/83 10/22/20 08:00 96.9 20 98 Room Air 10/19/20 14:57 10.0 I&O- Last 24 Hours up to 6 AM 10/22/20 06:00 Intake Total 4690 ml Output Total 2550 ml Balance 2140 ml Laboratory Data Labs 24H Laboratory Tests 2 10/21/20 12:50: Vancomycin Level Trough 18.3 10/21/20 15:01: Anion Gap 7L, Glomerular Filtration Rate > 60.0, Calcium Level 9.0 10/22/20 04:06: Anion Gap 8, Glomerular Filtration Rate > 60.0, Calcium Level 9.0, Nucleated Red Blood Cells % (auto) 0.0, C-Reactive Protein, Quantitative 2.06H CBC/BMP Laboratory Tests 10/21/20 15:01 10/22/20 04:06 Microbiology Microbiology 10/17/20 Gram Stain - Final, Resulted 10/17/20 Wound Culture - Final, Resulted 10/17/20 Anaerobic Culture, Resulted Pending 10/17/20 Blood Culture - Final, Complete NO GROWTH AFTER 5 DAYS 10/17/20 Blood Culture - Final, Complete NO GROWTH AFTER 5 DAYS Discharge Medications Scheduled Amlodipine Besylate (Amlodipine Besylate) 10 Mg Tab, 10 MG PO DAILY Ergocalciferol (Vitamin D2) (Vitamin D2) 50,000 Units Cap, 50,000 UNITS PO 1XWK, (Reported) SATURDAYS Fluticasone Furoate (Arnuity Ellipta) 100 Mcg Blst.w.dev, 1 PUFF INH DAILY, (Reported) Hydralazine HCl (Hydralazine HCl) 25 Mg Tablet, 25 MG PO TID Levofloxacin (Levofloxacin) 750 Mg Tablet, 750 MG PO DAILY@06 Lisinopril (Lisinopril) 40 Mg Tab, 40 MG PO DAILY Metronidazole (Flagyl) 500 Mg Tablet, 500 MG PO Q8H Pantoprazole Sodium (Pantoprazole Sodium) 40 Mg Tablet.dr, 40 MG PO BID, (Reported) Tiotropium [place] Monohydrate (Spiriva) 5 Inhalation/Inhaler Powd, 1 INHALATION INH DAILY, (Reported) Scheduled PRN Acetaminophen (Acetaminophen) 325 Mg Tablet, 650 MG PO Q6HP PRN for PAIN OR FEVER Albuterol Sulfate (Proair Hfa) 108 Mcg/Act Aer, 2 PUFFS INH Q4H PRN for WHEEZING, (Reported) Meloxicam (Meloxicam) 15 Mg Tablet, 15 MG PO DAILY PRN for PAIN, (Reported) TAKEN WITH FOOD Oxycodone/Acetaminophen (Oxycodone-Acetaminophen 5-325) 1 Each Tablet, 1 TAB PO Q4HP PRN for MODERATE PAIN (PS 5-7) Polyethylene Glycol 3350 (Polyethylene Glycol 3350) 510 Gm Powder, 17 GM PO DAILY PRN for CONSTIPATION, (Reported) Sennosides (Senna) 8.6 Mg Tablet, 17.2 MG PO QHS PRN for CONSTIPATION, (Reported) Sildenafil Citrate (Sildenafil Citrate) 50 Mg Tablet, 50 MG PO asdirected PRN for ERECTILE DYSFUNCTION, (Reported) Allergies Coded Allergies: No Known Allergies (Verified , 02/13/18) REID AVILA MD October 22, 2020 11:00
[2020-10-22 13:03] VITALS: BP 185/91
[2020-10-22] MEDS ORDERED: LEVO750T13 PO (13:36)
[2020-10-22] MEDS ORDERED: AMLO1TAB25 PO (13:36)
[2020-10-22] MEDS ORDERED: LISI40TA4 PO (13:36)
[2020-10-22] MEDS ORDERED: HYDR-3910 PO (13:36)
[2020-10-22] MEDS ORDERED: FLAG500T PO (13:36)
[2020-10-22] MEDS ORDERED: ACET1TAB55 PO (13:36)
[2020-10-22] MEDS ORDERED: PERCOCET PO (13:36)
[2020-10-22 13:49] VITALS: BP 140/78
[2020-10-22] MEDS ORDERED: SLF 3 ML SYR IV SCH (14:00)
[2020-10-22] MEDS ORDERED: **hydrALAZINE** 10 MG TAB PO SCH (14:00)
[2020-10-22 15:10] LABS: BLOOD UREA NITROGEN 9 MG/DL (7-18); CALCIUM LEVEL 9.3 MG/DL (8.8-10.2); CARBON DIOXIDE LEVEL 28 MEQ/L (21-32); CHLORIDE LEVEL 101 MEQ/L (98-107); GLOMERULAR FILTRATION RATE > 60.0 (>49); GLUCOSE, FASTING 134 MG/DL (70-100); POTASSIUM SERUM 4.3 MEQ/L (3.5-5.1); SODIUM LEVEL 135 MEQ/L (136-145)
--- NOTE | 2020-10-22 19:31 | IPN ---
PROGRESS NOTE DATE: 10/22/2020 Saleem seems to be doing well. He is anxious to go home. He states his buttock area is draining quite well. He is more comfortable sitting up. He has had no fever or chills. No nausea, vomiting, or diarrhea. LABORATORY DATA: White count is 12.3, hemoglobin 12.4, hematocrit 37.4, platelets 472. Sodium 133, potassium 3.1, chloride 98, bicarbonate 27, BUN 7, creatinine 0.84, glucose 176, calcium 9, CRP 2.06, down from 24.1. Cultures are still pending, but after microbiology, suspect it would be at least a couple anaerobes. PHYSICAL EXAMINATION: Temperature is 96.9, pulse 94, respirations 20, blood pressure 142/83, oxygen saturation 98% on room air. HEART: Normal S1, S2. No murmurs, rubs, or gallops. LUNGS: Clear. No wheezes, rales, or rhonchi. ABDOMEN: Soft, nontender. No hepatosplenomegaly. Left buttock area with erythema. Induration has markedly decreased. There is a large incision, measuring at least 5 cm, next to the perianal area and a small incision measuring 3 x 2 cm. They both have some purulent discharge. IMPRESSION: 1. Gluteal abscess with culture positive for anaerobes, doing much better. 2. History of hypertension with moderate control. Patient can be discharged home from am infectious disease standpoint on levofloxacin 750 mg by mouth daily and metronidazole 500 mg by mouth every 8 hours for 10 days. Followup with general surgery, and he will have referral to public health for packing of the wound and dressing changes.
[2020-10-25 23:11] LABS: PSA TOTAL 3.8 ng/mL (0.0-4.0)
== END 2020-10-22 17:14 | disposition home health service (06) | DRG 854 ==
LOC: M ED 01:46 → ENRESERV 09:41 → M PCU 10:43
PROVIDERS: ADMIT Internal Medicine; ATTEND Family Medicine
PROC: 0JBB0ZZ Excision of Perineum Subcutaneous Tissue and Fascia, Open Approach (ICD-10-PCS; principal; 2020-10-17 10:47)
DX: A41.9 Sepsis, unspecified organism (principal); E87.1 Hypo-osmolality and hyponatremia; L03.317 Cellulitis of buttock; N49.3 Fournier gangrene; J44.9 Chronic obstructive pulmonary disease, unspecified; I10 Essential (primary) hypertension; C61 Malignant neoplasm of prostate; R91.1 Solitary pulmonary nodule; K21.9 Gastro-esophageal reflux disease without esophagitis; E27.8 Other specified disorders of adrenal gland; E87.6 Hypokalemia; N28.9 Disorder of kidney and ureter, unspecified; Z79.899 Other long term (current) drug therapy; F17.200 Nicotine dependence, unspecified, uncomplicated

== ENCOUNTER 2020-10-29 23:19 | Emergency (ER) | payer MEDICARE, MEDICAID ==
[~2020-10-29] VITALS: Ht 170.2 cm; Wt 86.4 kg
[~2020-10-29 23:19] MED LIST changes: +ACET1TAB55 PO; +ARNU1INH INH; +FLAG500T PO; +HYDR-3910 PO; +LEVO750T13 PO; +MELO15TA28 PO; +PANT-23 PO; +PERCOCET PO
[2020-10-30 00:15] LABS: INR 1.06; PARTIAL THROMBOPLASTIN TIME 28.5 SECONDS (24.2-38.5)
[2020-10-30 00:26] LABS: BASO # 0.1 10^3/uL (0.0-0.2); BASO % 0.9 % (0.0-1.0); EOS # 0.1 10^3/uL (0.0-0.5); EOS % 0.7 % (0.0-3.0); HEMATOCRIT 34.6 % (42.0-52.0); HEMOGLOBIN 11.2 g/dl (13.5-17.5); LYMPH # 1.7 10^3/uL (1.5-5.0); LYMPH % 15.2 % (24.0-44.0); MEAN CORPUSCULAR HEMOGLOBIN 31.3 pg (27.0-33.0); MEAN CORPUSCULAR HGB CONC 32.4 g/dl (32.0-36.5); MEAN CORPUSCULAR VOLUME 96.6 fl (80.0-96.0); MONO # 0.7 10^3/uL (0.0-0.8); MONO % 6.5 % (2.0-8.0); NEUTROPHILS # 8.6 10^3/uL (1.5-8.5); NEUTROPHILS % 76.2 % (36.0-66.0); PLATELET COUNT, AUTOMATED 536 10^3/uL (150-450); RED BLOOD COUNT 3.58 10^6/uL (4.30-6.10); WHITE BLOOD COUNT 11.3 10^3/uL (4.0-10.0)
[2020-10-30 00:39] LABS: ALBUMIN 3.2 GM/DL (3.2-5.2); ALT/SGPT 16 U/L (12-78); BILIRUBIN,DIRECT 0.1 MG/DL (0.0-0.2); BILIRUBIN,TOTAL 0.4 MG/DL (0.2-1.0); BLOOD UREA NITROGEN 8 MG/DL (7-18); CALCIUM LEVEL 8.9 MG/DL (8.8-10.2); CARBON DIOXIDE LEVEL 27 MEQ/L (21-32); CHLORIDE LEVEL 102 MEQ/L (98-107); CK-MB VALUE MASS < 1.0 NG/ML (<3.6); CPK CREATINE PHOSPHOKINASE 49 U/L (39-308); CREATININE FOR GFR 0.84 MG/DL (0.70-1.30); GLOMERULAR FILTRATION RATE > 60.0 (>49); GLUCOSE, FASTING 109 MG/DL (70-100); LIPASE 153 U/L (73-393); MB/CK RELATIVE INDEX 2.04 (< OR =4); SODIUM LEVEL 135 MEQ/L (136-145); TOTAL PROTEIN 6.7 GM/DL (6.4-8.2); TROPONIN I < 0.02 NG/ML (< 0.10)
[2020-10-30] MEDS ORDERED: MORPHINE 4 MG/ML 1ML VIAL/SYRINGE (J2270) IV ONE (00:50)
[2020-10-30] MEDS ORDERED: NS 1,000 ML IV ONE (00:50)
--- NOTE | 2020-10-30 04:37 | REPVR ---
PROCEDURE INFORMATION: Exam: XR Abdomen Exam date and time: 10/30/2020 2:56 AM Age: 65 years old Clinical indication: Other: Abdominal distention TECHNIQUE: Imaging protocol: XR of the abdomen. Views: 2 Views. Upright and supine views. COMPARISON: CT ABD/PEL W/IV CONTRAST ONLY 10/17/2020 5:12 AM FINDINGS: Gastrointestinal tract: Nonspecific bowel gas pattern seen with no abnormal dilatation to suggest obstruction. Intraperitoneal space: Normal. No free air. Organs: Post cholecystectomy surgical clip seen. Bones/joints: There is severe thoracolumbar spine scoliosis. IMPRESSION: No radiographic evidence of bowel obstruction. Electronically signed by: Wade Cheung On 10/30/2020 04:36:39 AM
[2020-10-30] MEDS ORDERED: SIME180C25 PO (05:33)
[2020-10-30] MEDS ORDERED: PEPC1TAB5 PO (05:33)
[2020-10-30 05:45] VITALS: BP 142/69
--- NOTE | 2020-10-31 07:41 | ECGEPIP ---
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
== END 2020-10-30 06:10 | disposition home or self-care (01) ==
LOC: M ED 23:19
DX: R14.1 Gas pain (principal); Z79.899 Other long term (current) drug therapy
CPT/HCPCS: 74019; 80048; 80076; 81001; 82550; 82553; 83690; 84484; 85025; 85610; 85730; 86850; 86900; 86901; 93005; 93041; 96361; 96374; 99285; J2270

== ENCOUNTER → 2020-11-15 | Outpatient (REF) | payer MEDICARE, MEDICAID, OTHER ==
[~2020-11-15] MED LIST changes: +PEPC1TAB5 PO; +SIME180C25 PO
== END ==
LOC: M SHH 15:28
PROVIDERS: ATTEND Urology
DX: C61 Malignant neoplasm of prostate (principal)

== ENCOUNTER → 2021-01-24 | Outpatient (CLI) | payer MEDICARE, MEDICAID ==
[~2021-01-24] MED LIST changes: -CLIN150C15 PO; +CLIN150C17 PO; -DOXY100C37 PO; +DOXY1CAP62 PO; +ERGO500029 PO; -VITA50005 PO
--- NOTE | 2021-01-24 16:15 | REP ---
INDICATION: LT LEG PVD. COMPARISON: None. TECHNIQUE: Left lower extremity arterial Doppler sonography. FINDINGS: Ankle brachial index could not be accomplished due to noncompressible vessel. Moderate to severe atherosclerotic plaquing is noted. A 2-1 velocity ratio stenosis is observed in the left posterior tibial artery distally. There is a patent popliteal artery stent on the left. Biphasic and triphasic arterial Doppler waveforms are noted throughout the left lower extremity arterial tree. Left lower extremity arterial Doppler velocity chart: Left COLUMNIST PSV 152 cm/S/67 cm/S Profundal 169 Proximal SFA 138 Mid SFA 160 Distal SFA 77 Popliteal 89 Proximal ESTELA 78 Tibial-peroneal trunk 79 Proximal TRAVELING SECRETARY 93 Distal TRAVELING SECRETARY 181 Distal ESTELA 79 IMPRESSION: Atherosclerotic changes. Patent popliteal artery stent. Mild stenosis in the distal TRAVELING SECRETARY on the left. <Electronically signed by Yared Ferrell > 01/24/21 [id number]
== END ==
LOC: M RAD 15:29
PROVIDERS: ATTEND Surgery
DX: I73.9 Peripheral vascular disease, unspecified (principal)

== ENCOUNTER → 2021-08-23 | Outpatient (REF) | payer MEDICARE, MEDICAID ==
[~2021-08-23] MED LIST changes: +DOXY-443 PO; -DOXY1CAP62 PO
== END ==
LOC: M SFHCDERM 17:18
PROVIDERS: ATTEND Physician Assistant
DX: L72.9 Follicular cyst of the skin and subcutaneous tissue, unspecified (principal)

== ENCOUNTER → 2021-09-28 | Outpatient (CLI) | payer MEDICARE, MEDICAID | LOC: M LAB 14:30 | PROVIDERS: ATTEND Urology | DX: C61 Malignant neoplasm of prostate (principal) ==

== ENCOUNTER → 2021-11-08 | Outpatient (CLI) | payer MEDICARE, MEDICAID | LOC: M RAD 09:02 | PROVIDERS: ATTEND Internal Medicine Pulmonary Disease | DX: Z12.2 Encounter for screening for malignant neoplasm of respiratory organs (principal); F17.210 Nicotine dependence, cigarettes, uncomplicated ==

== ENCOUNTER → 2021-11-29 | Outpatient (REF) | payer MEDICARE, MEDICAID | LOC: M SMT PRO 13:01 | PROVIDERS: ATTEND Urology | DX: C61 Malignant neoplasm of prostate (principal) ==

== ENCOUNTER → 2021-12-06 | Outpatient (REF) | payer MEDICARE, MEDICAID ==
[2021-12-06 13:51] LABS: APPEARANCE, URINE HAZY (CLEAR); BACTERIA, URINE AUTO NEGATIVE (NEGATIVE); BILIRUBIN, URINE AUTO NEGATIVE (NEGATIVE); BLOOD, URINE BLOOD 3+ (NEGATIVE); COLOR, URINE AMBER (YELLOW); GLUCOSE, URINE (UA) AUTO NEGATIVE (NEGATIVE); KETONE, URINE AUTO TRACE mg/dL (NEGATIVE); LEUKOCYTE ESTERASE, URINE AUTO 2+ (NEGATIVE); NITRITE, URINE AUTO NEGATIVE (NEGATIVE); PROTEIN, URINE AUTO 1+ mg/dL (NEGATIVE); RBC, URINE AUTO 31 /HPF (0-3); SPECIFIC GRAVITY URINE AUTO 1.017 (1.002-1.035); SQUAMOUS EPITHELIAL CELL UR AU 0 /HPF (0-6); WBC, URINE AUTO TNTC /HPF (0-3)
== END ==
LOC: M SMT 12:57
PROVIDERS: ATTEND Urology
DX: N39.0 Urinary tract infection, site not specified (principal)

== ENCOUNTER → 2021-12-16 | Outpatient (CLI) | payer MEDICARE, MEDICAID | LOC: M ONCR 12:48 | PROVIDERS: ATTEND General Practice | DX: C61 Malignant neoplasm of prostate (principal); F17.210 Nicotine dependence, cigarettes, uncomplicated; Z79.01 Long term (current) use of anticoagulants; Z79.891 Long term (current) use of opiate analgesic; Z79.899 Other long term (current) drug therapy; Z95.828 Presence of other vascular implants and grafts ==

== ENCOUNTER → 2022-01-11 | Outpatient (CLI) | payer MEDICARE, MEDICAID ==
[~2022-01-11] VITALS: Ht 170.2 cm; Wt 60.8 kg
[~2022-01-11] MED LIST changes: +CIPR750T2 PO; +LEVO1TAB40 PO; -LEVO750T13 PO; +LIDOCAINE 2% MDV 20ML VIAL XX ONE; +LIDOCAINE VISCOUS 2% SOLN 15ML UDC XX ONE; +LORA1TAB4 PO
[2022-01-11 13:48] VITALS: BP 169/72
[2022-01-11 14:23] VITALS: BP 182/70
== END ==
LOC: M ONCR 12:56
PROVIDERS: ATTEND General Practice
DX: C61 Malignant neoplasm of prostate (principal)
CPT/HCPCS: 55874; 55876; A4648

== ENCOUNTER 2022-01-25 07:28 | Outpatient (RCR) | payer MEDICARE, MEDICAID ==
[~2022-01-25 07:28] MED LIST changes: -LIDOCAINE 2% MDV 20ML VIAL XX ONE; -LIDOCAINE VISCOUS 2% SOLN 15ML UDC XX ONE
== END 2022-02-08 ==
LOC: M ONCR 07:28
PROVIDERS: ATTEND General Practice
DX: C61 Malignant neoplasm of prostate (principal)

== ENCOUNTER → 2022-03-10 | Outpatient (RCR) | payer MEDICARE, MEDICAID ==
[~2022-03-10] MED LIST changes: +FLOM0.4C39 PO
== END ==
LOC: M ONCR 02-14 13:38
PROVIDERS: ATTEND General Practice
DX: C61 Malignant neoplasm of prostate (principal)

== ENCOUNTER 2022-03-27 13:45 | Outpatient (RCR) | payer MEDICARE, MEDICAID | END 2022-04-10 | LOC: M ONCR 13:45 | PROVIDERS: ATTEND General Practice | DX: C61 Malignant neoplasm of prostate (principal) ==

== ENCOUNTER → 2022-05-31 | Outpatient (REF) | payer MEDICARE, MEDICAID ==
[2022-05-31 18:46] LABS: BASO # 0.1 10^3/uL (0.0-0.2); BASO % 0.9 % (0.0-1.0); EOS # 0.1 10^3/uL (0.0-0.5); EOS % 1.4 % (0.0-3.0); HEMATOCRIT 46.7 % (42.0-52.0); HEMOGLOBIN 14.9 g/dl (13.5-17.5); LYMPH % 11.6 % (24.0-44.0); MEAN CORPUSCULAR HEMOGLOBIN 32.4 pg (27.0-33.0); MEAN CORPUSCULAR HGB CONC 31.9 g/dl (32.0-36.5); MEAN CORPUSCULAR VOLUME 101.5 fl (80.0-96.0); MONO # 0.7 10^3/uL (0.0-0.8); MONO % 8.6 % (2.0-8.0); NEUTROPHILS # 6.6 10^3/uL (1.5-8.5); NEUTROPHILS % 77.2 % (36.0-66.0); PLATELET COUNT, AUTOMATED 292 10^3/uL (150-450); WHITE BLOOD COUNT 8.6 10^3/uL (4.0-10.0)
[2022-05-31 18:52] LABS: ALBUMIN 3.8 G/DL (3.2-5.2); ALKALINE PHOSPHATASE 72 U/L (46-116); ALT/SGPT 12 U/L (7.0-40); AST/SGOT 14 U/L (<34); BILIRUBIN,TOTAL 0.5 MG/DL (0.3-1.2); BLOOD UREA NITROGEN 17 MG/DL (9-23); CALCIUM LEVEL 9.4 MG/DL (8.3-10.6); CARBON DIOXIDE LEVEL 27 MMOL/L (20-31); CHLORIDE LEVEL 103 MMOL/L (98-107); CHOLESTEROL LEVEL 160 MG/DL (<200); GLOMERULAR FILTRATION RATE > 60.0 (>49); GLUCOSE, FASTING 86 MG/DL (74-106); LDL CHOLESTEROL 100.8 MG/DL (<100); NON-HDL-C 121 MG/DL; POTASSIUM SERUM 4.6 MMOL/L (3.5-5.1); SODIUM LEVEL 138 MMOL/L (136-145); TOTAL PROTEIN 6.9 G/DL (5.7-8.2); TRIGLYCERIDES LEVEL 101 MG/DL (<150)
[2022-05-31 18:53] LABS: THYROID STIMULATING HORMONE 0.534 uIU/ML (0.55-4.78)
[2022-05-31 19:28] LABS: HEMOGLOBIN A1c 4.9 % (4.0-6.0)
== END ==
LOC: M LAB REF 16:24
PROVIDERS: ATTEND Nurse Practitioner Family
DX: Z13.228 Encounter for screening for other metabolic disorders (principal); Z79.899 Other long term (current) drug therapy

== ENCOUNTER → 2022-06-30 | Outpatient (CLI) | payer MEDICARE, MEDICAID | LOC: M ONCR 11:08 | PROVIDERS: ATTEND General Practice | DX: C61 Malignant neoplasm of prostate (principal); F17.210 Nicotine dependence, cigarettes, uncomplicated; Z79.1 Long term (current) use of non-steroidal anti-inflammatories (NSAID); Z79.899 Other long term (current) drug therapy; Z92.3 Personal history of irradiation | CPT/HCPCS: 36415; 84153; G0463 ==

== ENCOUNTER → 2022-08-01 | Outpatient (CLI) | payer OTHER, MEDICAID ==
[~2022-08-01] MED LIST changes: +KETAMINE HCL 200MG/20ML VIAL As Ordered ONE; +LIDOCAINE 2% 100MG/5ML SDV (FOR ANES.) As Ordered ONE; +MIDAZOLAM INJ 2MG/2ML VIAL As Ordered ONE; +ROCURONIUM BROMIDE 50MG/5ML VIAL As Ordered ONE; +fentaNYL 100 MCG/2 ML INJECTION As Ordered ONE; +propofoL 200 MG/20 ML VIAL As Ordered ONE
== END ==
LOC: M RAD 13:20
PROVIDERS: ATTEND Surgery
DX: I70.201 Unspecified atherosclerosis of native arteries of extremities, right leg (principal)
CPT/HCPCS: 93925; J2250; J3010

== ENCOUNTER → 2022-11-17 | Outpatient (CLI) | payer OTHER, MEDICAID ==
[~2022-11-17] MED LIST changes: +BACTDSTA PO; -KETAMINE HCL 200MG/20ML VIAL As Ordered ONE; -LIDOCAINE 2% 100MG/5ML SDV (FOR ANES.) As Ordered ONE; +LORA1TAB23 PO; -LORA1TAB4 PO; -MIDAZOLAM INJ 2MG/2ML VIAL As Ordered ONE; -ROCURONIUM BROMIDE 50MG/5ML VIAL As Ordered ONE; +SENN-186 PO; -SENN-80 PO; -fentaNYL 100 MCG/2 ML INJECTION As Ordered ONE; -propofoL 200 MG/20 ML VIAL As Ordered ONE
== END ==
LOC: M ONCR 11:02
PROVIDERS: ATTEND General Practice
DX: N39.0 Urinary tract infection, site not specified (principal); R31.0 Gross hematuria; R39.198 Other difficulties with micturition; B96.20 Unspecified Escherichia coli [E. coli] as the cause of diseases classified elsewhere
CPT/HCPCS: 36415; G0463

== ENCOUNTER → 2022-12-14 | Outpatient (CLI) | payer OTHER, MEDICAID | LOC: M LAB 10:10 | PROVIDERS: ATTEND Urology | DX: C61 Malignant neoplasm of prostate (principal) ==

== ENCOUNTER → 2023-01-02 | Outpatient (CLI) | payer OTHER, MEDICAID | LOC: M ONCR 11:00 | PROVIDERS: ATTEND General Practice | DX: C61 Malignant neoplasm of prostate (principal); R35.1 Nocturia; F17.210 Nicotine dependence, cigarettes, uncomplicated; Z71.2 Person consulting for explanation of examination or test findings; Z79.51 Long term (current) use of inhaled steroids; Z79.899 Other long term (current) drug therapy; Z92.3 Personal history of irradiation ==

== ENCOUNTER → 2023-01-08 | Outpatient (CLI) | payer OTHER, MEDICAID | LOC: M RAD 09:37 | PROVIDERS: ATTEND Internal Medicine Pulmonary Disease | DX: Z12.2 Encounter for screening for malignant neoplasm of respiratory organs (principal); F17.218 Nicotine dependence, cigarettes, with other nicotine-induced disorders ==

== ENCOUNTER → 2023-02-08 | Outpatient (CLI) | payer OTHER, MEDICAID | LOC: M RAD 12:15 | PROVIDERS: ATTEND Surgery | DX: I73.9 Peripheral vascular disease, unspecified (principal) ==

== ENCOUNTER → 2023-02-16 | Outpatient (REF) | payer OTHER, MEDICAID ==
[2023-02-16 19:46] LABS: BASO # 0.1 10^3/uL (0.0-0.2); BASO % 0.9 % (0.0-1.0); EOS # 0.1 10^3/uL (0.0-0.5); EOS % 1.2 % (0.0-3.0); HEMOGLOBIN 13.6 g/dl (13.5-17.5); LYMPH % 11.4 % (24.0-44.0); MEAN CORPUSCULAR HEMOGLOBIN 32.8 pg (27.0-33.0); MEAN CORPUSCULAR HGB CONC 32.4 g/dl (32.0-36.5); MEAN CORPUSCULAR VOLUME 101.2 fl (80.0-96.0); MONO # 0.8 10^3/uL (0.0-0.8); NEUTROPHILS # 6.7 10^3/uL (1.5-8.5); NEUTROPHILS % 77.2 % (36.0-66.0); PLATELET COUNT, AUTOMATED 252 10^3/uL (150-450); RED BLOOD COUNT 4.15 10^6/uL (4.30-6.10); WHITE BLOOD COUNT 8.7 10^3/uL (4.0-10.0)
[2023-02-16 20:41] LABS: ALBUMIN 3.6 G/DL (3.2-5.2); ALKALINE PHOSPHATASE 66 U/L (46-116); ALT/SGPT 11 U/L (7.0-40); AST/SGOT < 8 U/L (<34); BILIRUBIN,TOTAL 0.4 MG/DL (0.3-1.2); BLOOD UREA NITROGEN 14 MG/DL (9-23); CALCIUM LEVEL 8.8 MG/DL (8.3-10.6); CARBON DIOXIDE LEVEL 28 MMOL/L (20-31); CHLORIDE LEVEL 104 MMOL/L (98-107); CHOLESTEROL LEVEL 148 MG/DL (<200); CHOLESTEROL RISK RATIO 3.35 (<5); CREATININE FOR GFR 0.85 MG/DL (0.70-1.30); GLOMERULAR FILTRATION RATE > 60.0 (>49); GLUCOSE, FASTING 97 MG/DL (74-106); HDL CHOLESTEROL 44.1 MG/DL (>40); LDL CHOLESTEROL 83.7 MG/DL (<100); NON-HDL-C 103.9 MG/DL; POTASSIUM SERUM 4.7 MMOL/L (3.5-5.1); SODIUM LEVEL 137 MMOL/L (136-145); TOTAL PROTEIN 6.5 G/DL (5.7-8.2); TRIGLYCERIDES LEVEL 101 MG/DL (<150)
== END ==
LOC: M LAB REF 16:19
PROVIDERS: ATTEND Nurse Practitioner Family
DX: Z13.228 Encounter for screening for other metabolic disorders (principal); Z79.899 Other long term (current) drug therapy

== ENCOUNTER → 2023-08-17 | Outpatient (CLI) | payer OTHER, MEDICAID ==
[~2023-08-17] MED LIST changes: -HYDR-3910 PO; +HYDR25TA87 PO
== END ==
LOC: M LAB 11:26
PROVIDERS: ATTEND Urology
DX: C61 Malignant neoplasm of prostate (principal)

== ENCOUNTER → 2023-09-20 | Outpatient (CLI) | payer OTHER, MEDICAID | LOC: M LAB 12:53 | PROVIDERS: ATTEND Nurse Practitioner Family | DX: K26.9 Duodenal ulcer, unspecified as acute or chronic, without hemorrhage or perforation (principal) ==

== ENCOUNTER → 2023-10-31 | Outpatient (CLI) | payer OTHER, MEDICAID ==
[~2023-10-31] MED LIST changes: +DOXY-323 PO; -DOXY-443 PO
== END ==
LOC: M RAD 11:59
PROVIDERS: ATTEND Nurse Practitioner Family
DX: M79.641 Pain in right hand (principal)

== ENCOUNTER → 2024-03-03 | Outpatient (REF) | payer OTHER, MEDICAID ==
[~2024-03-03] MED LIST changes: +CLOP75TA2 PO; +HYDR100T PO; +OXYB-54 PO; +SENN-187 PO; -SENN-83 PO; +STIO1AER; +TAMS1CAP17 PO; +VITA100093 PO
[2024-03-03 12:09] LABS: BASO # 0.1 10^3/uL (0.0-0.2); BASO % 1.4 % (0.0-1.0); EOS # 0.2 10^3/uL (0.0-0.5); HEMATOCRIT 44.3 % (42.0-52.0); HEMOGLOBIN 14.8 g/dl (13.5-17.5); LYMPH # 1.2 10^3/uL (1.5-5.0); LYMPH % 15.3 % (24.0-44.0); MEAN CORPUSCULAR HEMOGLOBIN 33.3 pg (27.0-33.0); MEAN CORPUSCULAR HGB CONC 33.4 g/dl (32.0-36.5); MEAN CORPUSCULAR VOLUME 99.6 fl (80.0-96.0); MONO # 0.7 10^3/uL (0.0-0.8); MONO % 9.3 % (2.0-8.0); NEUTROPHILS # 5.6 10^3/uL (1.5-8.5); NEUTROPHILS % 71.6 % (36.0-66.0); PLATELET COUNT, AUTOMATED 283 10^3/uL (150-450); RED BLOOD COUNT 4.45 10^6/uL (4.30-6.10); WHITE BLOOD COUNT 7.8 10^3/uL (4.0-10.0)
[2024-03-03 12:30] LABS: HEMOGLOBIN A1c 4.9 % (4.0-6.0)
[2024-03-03 12:40] LABS: CHOLESTEROL RISK RATIO 3.82 (<5); LDL CHOLESTEROL 98.6 MG/DL (<100); MAGNESIUM LEVEL 1.8 MG/DL (1.8-2.4); THYROID STIMULATING HORMONE 0.594 uIU/ML (0.55-4.78); TOTAL 25(OH) VITAMIN D 34.3 NG/ML (20.0-100.0)
== END ==
LOC: M LAB REF 11:42
PROVIDERS: ATTEND Nurse Practitioner Family
DX: E66.3 Overweight (principal); E55.9 Vitamin D deficiency, unspecified; E07.9 Disorder of thyroid, unspecified

== ENCOUNTER 2024-04-11 08:13 | Emergency (ER) | payer OTHER, MEDICAID ==
[~2024-04-11] VITALS: Ht 170.2 cm; Wt 75.6 kg
[~2024-04-11 08:13] MED LIST changes: -DOXY-323 PO; +DOXY-441 PO; -SIME180C25 PO; +SIME1CAP4 PO
[2024-04-11 08:26] VITALS: BP 182/78; TEMP 97.1; O2SAT 97
[2024-04-11] MEDS ORDERED: CEPH500C PO (08:52)
[2024-04-11] MEDS: DOXYCYCLINE HYCLATE 100MG TABLET PO ONE (08:56)
== END 2024-04-11 09:04 | disposition home or self-care (01) ==
LOC: M ED 08:13
DX: S40.262A Insect bite (nonvenomous) of left shoulder, initial encounter (principal); I10 Essential (primary) hypertension; K21.9 Gastro-esophageal reflux disease without esophagitis; F17.200 Nicotine dependence, unspecified, uncomplicated; F12.10 Cannabis abuse, uncomplicated; F10.10 Alcohol abuse, uncomplicated; Z79.2 Long term (current) use of antibiotics; Z79.811 Long term (current) use of aromatase inhibitors; Z79.899 Other long term (current) drug therapy; Y92.9 Unspecified place or not applicable; Y93.89 Activity, other specified; Y99.9 Unspecified external cause status

== ENCOUNTER → 2024-05-07 | Outpatient (CLI) | payer OTHER, MEDICAID ==
[~2024-05-07] MED LIST changes: +CEPH500C PO; +E-Z-GAS II EFFERVESCENT PACKET (SODIUM BICARB./CITRIC ACID/SIMETHICONE) As Ordered ONE; +E-Z-HD 98% w/w 340GM SUSP BTL As Ordered ONE; +E-Z-PAQUE 96% w/w SUSP 176GM BTL As Ordered ONE
== END ==
LOC: M RAD 07:41
PROVIDERS: ATTEND Nurse Practitioner Family
DX: K26.9 Duodenal ulcer, unspecified as acute or chronic, without hemorrhage or perforation (principal); K21.00 Gastro-esophageal reflux disease with esophagitis, without bleeding

== ENCOUNTER 2024-06-12 02:43 | Emergency (ER) | payer MEDICARE, MEDICAID ==
[~2024-06-12] VITALS: Ht 170.2 cm; Wt 72.6 kg
[~2024-06-12 02:43] MED LIST changes: -HOLTER MONITOR XX
[2024-06-12 03:25] LABS: BASO # 0.1 10^3/uL (0.0-0.2); BASO % 1.1 % (0.0-1.0); EOS # 0.2 10^3/uL (0.0-0.5); EOS % 2.3 % (0.0-3.0); HEMATOCRIT 43.1 % (42.0-52.0); HEMOGLOBIN 14.2 g/dl (13.5-17.5); LYMPH # 1.5 10^3/uL (1.5-5.0); LYMPH % 17.1 % (24.0-44.0); MEAN CORPUSCULAR HEMOGLOBIN 32.5 pg (27.0-33.0); MEAN CORPUSCULAR HGB CONC 32.9 g/dl (32.0-36.5); MEAN CORPUSCULAR VOLUME 98.6 fl (80.0-96.0); MONO # 0.8 10^3/uL (0.0-0.8); MONO % 9.2 % (2.0-8.0); NEUTROPHILS # 6.1 10^3/uL (1.5-8.5); PLATELET COUNT, AUTOMATED 249 10^3/uL (150-450); RED BLOOD COUNT 4.37 10^6/uL (4.30-6.10); WHITE BLOOD COUNT 8.7 10^3/uL (4.0-10.0)
[2024-06-12 03:49] LABS: CK-MB VALUE MASS 1.2 NG/ML (<3.6)
[2024-06-12 03:50] LABS: BLOOD UREA NITROGEN 17 MG/DL (9-23); CALCIUM LEVEL 9.6 MG/DL (8.3-10.6); CARBON DIOXIDE LEVEL 28 MMOL/L (20-31); CHLORIDE LEVEL 108 MMOL/L (98-107); CREATININE FOR GFR 0.85 MG/DL (0.70-1.30); GLOMERULAR FILTRATION RATE > 60.0 (>49); GLUCOSE, FASTING 128 MG/DL (74-106); POTASSIUM SERUM 4.4 MMOL/L (3.5-5.1); SODIUM LEVEL 143 MMOL/L (136-145)
[2024-06-12 03:53] LABS: CPK CREATINE PHOSPHOKINASE 84 U/L (46-171); MB/CK RELATIVE INDEX 1.42 (< OR =4)
[2024-06-12 07:45] VITALS: TEMP 96.9
[2024-06-12 09:27] LABS: CK-MB VALUE MASS < 1.0 NG/ML (<3.6)
[2024-06-12] MEDS: **hydrALAZINE** 50 MG TAB PO ONE (09:33)
[2024-06-12 09:34] VITALS: BP 208/89
[2024-06-12] MEDS: lisinopriL 40MG TAB PO ONE (09:34)
[2024-06-12 09:35] LABS: CPK CREATINE PHOSPHOKINASE 80 U/L (46-171); MB/CK RELATIVE INDEX 1.25 (< OR =4)
[2024-06-12 10:16] LABS: FREE T4 1.36 NG/DL (0.89-1.76); THYROID STIMULATING HORMONE 0.635 uIU/ML (0.55-4.78)
[2024-06-12 10:30] VITALS: BP 210/86; O2SAT 96
[2024-06-12] MEDS ORDERED: HOLTER MONITOR XX (10:30)
== END 2024-06-12 10:43 | disposition home or self-care (01) ==
LOC: M ED 02:43
DX: R00.1 Bradycardia, unspecified (principal); R53.1 Weakness; I49.49 Other premature depolarization; I45.2 Bifascicular block; I44.4 Left anterior fascicular block; J45.909 Unspecified asthma, uncomplicated; K21.9 Gastro-esophageal reflux disease without esophagitis; C61 Malignant neoplasm of prostate; I10 Essential (primary) hypertension; F17.200 Nicotine dependence, unspecified, uncomplicated; F12.10 Cannabis abuse, uncomplicated; F10.10 Alcohol abuse, uncomplicated; Z79.2 Long term (current) use of antibiotics; Z79.811 Long term (current) use of aromatase inhibitors; Z79.899 Other long term (current) drug therapy

== ENCOUNTER → 2024-06-12 | Outpatient (CLI) | payer MEDICARE, MEDICAID ==
[~2024-06-12] MED LIST changes: -E-Z-GAS II EFFERVESCENT PACKET (SODIUM BICARB./CITRIC ACID/SIMETHICONE) As Ordered ONE; -E-Z-HD 98% w/w 340GM SUSP BTL As Ordered ONE; -E-Z-PAQUE 96% w/w SUSP 176GM BTL As Ordered ONE; +HOLTER MONITOR XX
== END ==
LOC: M EKG 10:50
PROVIDERS: ATTEND Emergency Medicine
DX: R00.2 Palpitations (principal)

== ENCOUNTER → 2024-07-16 | Outpatient (CLI) | payer MEDICARE, MEDICAID ==
[~2024-07-16] MED LIST changes: +HOLTER MONITOR XX
== END ==
LOC: M RAD 16:00
PROVIDERS: ATTEND Internal Medicine Pulmonary Disease
DX: Z12.2 Encounter for screening for malignant neoplasm of respiratory organs (principal); F17.218 Nicotine dependence, cigarettes, with other nicotine-induced disorders

== ENCOUNTER → 2024-08-06 | Outpatient (CLI) | payer MEDICARE, MEDICAID | LOC: M RAD 07:14 | PROVIDERS: ATTEND Nurse Practitioner Family | DX: I1A.0 Resistant hypertension (principal); I70.1 Atherosclerosis of renal artery; N27.0 Small kidney, unilateral ==

== ENCOUNTER → 2024-09-01 | Outpatient (CLI) | payer MEDICARE, MEDICAID | LOC: M LAB 12:46 | PROVIDERS: ATTEND Urology | DX: C61 Malignant neoplasm of prostate (principal) ==

== ENCOUNTER → 2024-09-08 | Outpatient (CLI) | payer MEDICARE, MEDICAID ==
[~2024-09-08] MED LIST changes: +ISOVUE-370 76% 100ML VIAL As Ordered ONE
== END ==
LOC: M RAD 08:46
PROVIDERS: ATTEND Nurse Practitioner Family
DX: I70.1 Atherosclerosis of renal artery (principal); I1A.0 Resistant hypertension; N18.31 Chronic kidney disease, stage 3a
CPT/HCPCS: 74175; Q9967

== ENCOUNTER → 2024-09-24 | Outpatient (POV) | payer MEDICARE, MEDICAID ==
[~2024-09-24] VITALS: Ht 170.2 cm; Wt 80.0 kg
[~2024-09-24] MED LIST changes: -ISOVUE-370 76% 100ML VIAL As Ordered ONE
[2024-09-24 13:43] VITALS: BP 152/68; O2SAT 97
== END ==
LOC: M IRPOV 13:24
PROVIDERS: ATTEND Radiology Diagnostic Radiology
DX: I70.1 Atherosclerosis of renal artery (principal); I10 Essential (primary) hypertension; I73.9 Peripheral vascular disease, unspecified; J44.9 Chronic obstructive pulmonary disease, unspecified; F10.10 Alcohol abuse, uncomplicated; N26.1 Atrophy of kidney (terminal); F17.210 Nicotine dependence, cigarettes, uncomplicated; Z79.01 Long term (current) use of anticoagulants; Z79.899 Other long term (current) drug therapy; Z85.46 Personal history of malignant neoplasm of prostate; Z95.828 Presence of other vascular implants and grafts

== ENCOUNTER 2024-10-23 14:56 | Emergency (ER) | payer MEDICARE, MEDICAID ==
[~2024-10-23] VITALS: Ht 170.2 cm; Wt 80.6 kg
[~2024-10-23 14:56] MED LIST changes: -FLOM0.4C39 PO; +TAMS-18 PO
[2024-10-23 15:00] VITALS: TEMP 98.3
[2024-10-23] MEDS ORDERED: ARNU1INH3 (15:10)
[2024-10-23] MEDS ORDERED: MINO2.5T (15:10)
[2024-10-23] MEDS ORDERED: DOCU100C16 (15:10)
[2024-10-23] MEDS ORDERED: DOXY100C3 (15:10)
[2024-10-23] MEDS ORDERED: CLOP75TA2 (15:10)
[2024-10-23] MEDS ORDERED: STIO1AER (15:10)
[2024-10-23] MEDS ORDERED: HYDR12.55 (15:10)
[2024-10-23] MEDS ORDERED: ROSU10TA61 (15:10)
[2024-10-23 17:43] VITALS: BP 143/66; O2SAT 99
[2024-10-23] MEDS: LIDOCAINE W/EPINEPHRINE 1% 20ML VIAL SC ONE (18:35)
[2024-10-23] MEDS ORDERED: DOXY-441 PO (19:10)
== END 2024-10-23 19:17 | disposition home or self-care (01) ==
LOC: M ED 14:56
DX: L02.212 Cutaneous abscess of back [any part, except buttock and flank] (principal); J44.9 Chronic obstructive pulmonary disease, unspecified; I10 Essential (primary) hypertension; F17.200 Nicotine dependence, unspecified, uncomplicated; Z79.899 Other long term (current) drug therapy; Z79.2 Long term (current) use of antibiotics

== ENCOUNTER → 2024-10-24 | Outpatient (REF) | payer MEDICARE, MEDICAID ==
[~2024-10-24] MED LIST changes: +ARNU1INH3; +CLOP75TA2; +DOCU100C16; +DOXY100C3; +HYDR12.55; +MINO2.5T; +ROSU10TA61
[2024-10-24 17:18] LABS: INR 0.94; PROTHROMBIN TIME 12.9 SECONDS (12.5-14.5)
== END ==
LOC: M LAB REF 16:41
PROVIDERS: ATTEND Internal Medicine Nephrology
DX: I10 Essential (primary) hypertension (principal); Z79.01 Long term (current) use of anticoagulants

== ENCOUNTER 2024-10-28 14:31 | Emergency (ER) | payer MEDICARE, MEDICAID ==
[~2024-10-28] VITALS: Ht 170.2 cm; Wt 80.5 kg
[2024-10-28 14:33] VITALS: BP 163/70; TEMP 98.1; O2SAT 95
== END 2024-10-28 15:35 | disposition home or self-care (01) ==
LOC: M ED 14:31
DX: Z48.00 Encounter for change or removal of nonsurgical wound dressing (principal); I10 Essential (primary) hypertension; F10.10 Alcohol abuse, uncomplicated; F17.200 Nicotine dependence, unspecified, uncomplicated; Z79.899 Other long term (current) drug therapy

== ENCOUNTER → 2025-01-07 | Outpatient (CLI) | payer MEDICARE, MEDICAID ==
[~2025-01-07] MED LIST changes: -CLOP75TA2; -HYDR12.55; +HYDR12.55 PO; +LISI40TA10 PO; -LISI40TA4 PO; -MINO2.5T; +MINO2.5T PO; +MM S100C PO; -ROSU10TA61; +ROSU10TA61 PO; +TIOT4MIS3 IH
[2025-01-07 11:49] LABS: ALT/SGPT 17 U/L (7.0-40); AST/SGOT 15 U/L (<34); CALCIUM LEVEL 9.1 MG/DL (8.3-10.6); CARBON DIOXIDE LEVEL 28 MMOL/L (20-31); CHLORIDE LEVEL 105 MMOL/L (98-107); CHOLESTEROL LEVEL 113 MG/DL (<200); CHOLESTEROL RISK RATIO 3.33 (<5); CREATININE FOR GFR 0.87 MG/DL (0.70-1.30); GLOMERULAR FILTRATION RATE > 90.0 (>49); LDL CHOLESTEROL 62.3 MG/DL (<100); NON-HDL-C 79.1 MG/DL; POTASSIUM SERUM 4.2 MMOL/L (3.5-5.1); SODIUM LEVEL 142 MMOL/L (136-145); TRIGLYCERIDES LEVEL 84 MG/DL (<150)
== END ==
LOC: M LAB 10:34
PROVIDERS: ATTEND Physician Assistant
DX: E78.5 Hyperlipidemia, unspecified (principal)

== ENCOUNTER → 2025-02-03 | Outpatient (CLI) | payer MEDICARE, MEDICAID | LOC: M RAD 10:59 | PROVIDERS: ATTEND Surgery | DX: I73.9 Peripheral vascular disease, unspecified (principal) ==

== ENCOUNTER → 2025-02-11 | Outpatient (CLI) | payer MEDICARE, MEDICAID ==
[2025-02-11 16:49] LABS: ALT/SGPT 18.0 U/L (7.0-40); AST/SGOT 18.0 U/L (<34); CALCIUM LEVEL 9.4 MG/DL (8.3-10.6); CARBON DIOXIDE LEVEL 29.0 MMOL/L (20-31); CHLORIDE LEVEL 105.0 MMOL/L (98-107); CHOLESTEROL LEVEL 116.0 MG/DL (<200); CHOLESTEROL RISK RATIO 3.24 (<5); CREATININE FOR GFR 0.94 MG/DL (0.70-1.30); GLOMERULAR FILTRATION RATE 88.9 (>49); LDL CHOLESTEROL 39.8 MG/DL (<100); NON-HDL-C 80.2 MG/DL; POTASSIUM SERUM 4.3 MMOL/L (3.5-5.1); SODIUM LEVEL 142.0 MMOL/L (136-145); TRIGLYCERIDES LEVEL 202.0 MG/DL (<150)
== END ==
LOC: M LAB 15:19
PROVIDERS: ATTEND Physician Assistant
DX: E78.5 Hyperlipidemia, unspecified (principal)